=== PATIENT | female | born 1970 | race Caucasian/White ===

== ENCOUNTER → 2020-04-23 09:43 | Outpatient (BNVA) | payer OTHER, SELFPAY | PROVIDERS: PCP Internal Medicine; Visit Provider Orthopaedic Surgery | DX: M25.462 Effusion, left knee (principal) | CPT/HCPCS: 20610; J1100 ==

== ENCOUNTER 2020-11-30 08:02 | Outpatient (REF) | payer OTHER, SELFPAY ==
--- NOTE | ~2020-11-30 | MR_ITS ---
EXAMINATION: MR KNEE WITHOUT CONTRAST, LEFT CLINICAL INFORMATION: Left knee pain and swelling. Effusion. COMPARISON: Left knee radiographs dated 11/03/2019 TECHNIQUE: MRI of the knee without contrast was performed using routine sequences on a high-field scanner. FINDINGS: MENISCI: Medial Meniscus: Complex tearing of the meniscal body and posterior horn with inner margin blunting as well as tibial and femoral articular surface components. The meniscal body is medially extruded. Lateral Meniscus: Focal inner margin fraying of the meniscal body and posterior horn/root junction. LIGAMENTS: Cruciate: Intact. Collateral: Thickening of the medial collateral ligament, consistent with a remote sprain/partial tear. Intact fibular collateral ligament. EXTENSOR MECHANISM: Intact. ARTICULAR CARTILAGE/BONE: Patellofemoral Compartment: Medial patellar facet nondisplaced chondral fragment with associated delamination measuring 1.7 cm in ML dimension. Patellar median ridge and lateral patellar facet articular cartilage signal heterogeneity. Small marginal osteophytes. Medial Compartment: Weightbearing medial femoral condyle articular cartilage thinning with areas of dymb-[id number] loss. Signal heterogeneity. Tiny marginal osteophytes. Lateral Compartment: Mild weightbearing articular cartilage signal heterogeneity. Tiny marginal osteophytes. JOINT FLUID AND BURSAE: Moderate joint effusion and trace Wei's cyst. Probable posterior loose body measuring 0.5 cm. MR/MR knee LT wo con IMPRESSION: 1. Complex tearing of the medial meniscal body and posterior horn with inner margin blunting as well as irregular tearing extending along the femoral and tibial articular surfaces. Medial extrusion of the meniscal body. 2. Focal inner margin fraying of the lateral meniscal body and posterior horn/root junction. 3. Nondisplaced chondral fragment along the medial patellar facet measuring up to 1.7 cm. Overall mild patellofemoral osteoarthritis. Mild medial and lateral compartment osteoarthritis. Moderate joint effusion and trace Wei's cyst. Probable posterior loose body measuring 0.5 cm.
== END 2020-11-30 08:03 | disposition home or self-care (01) ==
LOC: HO.MRI 08:02
PROVIDERS: PCP Internal Medicine; Visit Provider Orthopaedic Surgery
DX: M25.462 Effusion, left knee (principal)
CPT/HCPCS: 73721

== ENCOUNTER → 2020-12-27 08:50 | Outpatient (BNVA) | payer OTHER, SELFPAY | PROVIDERS: Visit Provider Physician Assistant ==

== ENCOUNTER 2020-12-29 08:49 | Day surgery (SDC) | payer OTHER, SELFPAY ==
[2020-12-22 12:41] VITALS: BMI 26.5
--- NOTE | 2020-12-28 09:47 | HO.ANESPROP2 ---
Documented by User: Isabel Bingham NP 12/28/20 09:48 HPI - Anesthesia Eval Consult details Narrative: 50yo F for Left Knee Arthroscopy PMFSH Active Problems Active Problems: All Active Problems (Updated 12/27/20 @ 09:18 by Calin Barrios PA-C) Tear of meniscus of left knee (Acute) Effusion, left knee (Acute) Past Medical History Medical History Breast cancer Effusion, left knee Femur fracture Surgical History Surgical History History of prophylactic mastectomy of right breast Hx of bilateral oophorectomy Hx of total mastectomy of left breast Social History Social History Are you a primary critical care paramedic to a significant other at home: No Do you presently have visiting nurse or other home services: No Patient Tobacco Use Status: Never used Tobacco Use of substances other than those prescribed or required for medical reasons: No Have you been hit, kicked, punched, or otherwise hurt by someone within the past year? 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 Allergies Allergy/AdvReac Type Severity Reaction Status Date / Time No Known Allergies Allergy Verified 12/29/20 10:24 [No Known Allergies*] Home Medications Medication Instructions Recorded Confirmed Last Taken Type cholecalciferol (vitamin D3) 10 10 mcg PO DAILY 04/23/20 12/22/20 Unknown History mcg (400 unit) capsule duloxetine 30 mg capsule,delayed 1 cap PO BID 12/22/20 12/22/20 Unknown History release exemestane 25 mg tablet 1 tab PO DAILY 12/22/20 12/22/20 Unknown History Exam Exam Date and Time: December 28, 2020 0947 Height,Weight and Vital Signs: Height 5 ft 3 in Weight 68.039 kg Assessment and Plan Assessment Anesthesia Assessment: Chart Reviewed Documented by User: Fili Florence MD 12/29/20 11:34 [facility] Past Medical History Medical History Breast cancer Effusion, left knee Femur fracture Family History Family history of problems with anesthesia: No Surgical History Surgical History History of prophylactic mastectomy of right breast Hx of bilateral oophorectomy Hx of total mastectomy of left breast History of Problems with Anesthesia: No Social History Social History Are you a primary critical care paramedic to a significant other at home: No Do you presently have visiting nurse or other home services: No Patient Tobacco Use Status: Never used Tobacco Use of substances other than those prescribed or required for medical reasons: No Have you been hit, kicked, punched, or otherwise hurt by someone within the past year? 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 Allergies Allergy/AdvReac Type Severity Reaction Status Date / Time No Known Allergies Allergy Verified 12/29/20 10:24 [No Known Allergies*] Home Medications Medication Instructions Recorded Confirmed Last Taken Type cholecalciferol (vitamin D3) 10 10 mcg PO DAILY 04/23/20 12/22/20 Unknown History mcg (400 unit) capsule duloxetine 30 mg capsule,delayed 1 cap PO BID 12/22/20 12/22/20 Unknown History release exemestane 25 mg tablet 1 tab PO DAILY 12/22/20 12/22/20 Unknown History Exam Airway Mallampati Class: II TM Dist: >3cm Neck ROM: Full Loose/Missing/Broken Teeth: No Heart: [id number] Lungs: cta b/l Assessment and Plan Assessment Anesthesia Assessment: Anesthesia Plan Discussed Final Anesthetic Review Family History of Problems with Anesthesia: No History of Problems with Anesthesia: No NPO: Yes ASA Class: II Final Preanesthetic Review: No Changes in Pt Med Stat, Meds/Allgs Chart Reviewed, Consent Obtained/Reviewed and Anes Risks/Benef Reviewed Patient Risk: Intermediate Procedure Risk: Low Assessment/Block/Sedation in SS: Assess/Block/Sedation-SS Anesthetic Plan Anesthetic Plan: GA Disposition: Standard PACU
[2020-12-29] VITALS (7 sets, daily range): BP systolic 118–131; BP diastolic 61–79; PULSE 63–78; RESP 12–18; TEMP 36.7–37.1; O2SAT 98–100
[2020-12-29 09:56] LABS: UPreg QC Valid YES; Urine Pregnancy NEGATIVE (NEGATIVE)
[2020-12-29] MEDS: Lactated Ringers 1,000 ML 100 ML IVCONT (10:47)
--- NOTE | 2020-12-29 12:55 | PM.OP ---
Brief Operative Note Date of Service: 12/29/20 Pre-op diagnosis: left knee MMT Post-op diagnosis: other (Left knee MMT, loose bodies and chondromalacia with medial femoral arthritis) Procedure: left knee with partial medial meniscectomy, chondroplasty and removal of loose bodies Implants: none Surgeon: Chalino Saravia MD Anesthesia: GETA and local Was an Software Applications Designer used for this Procedure?: No Estimated blood loss (mL): 5 Tourniquet time (min): 30 IV fluids (mL): 800 Pathology: none sent Condition: stable Disposition: PACU
--- NOTE | 2020-12-29 12:59 | P.OP_ITS ---
Operative Note Operative Note Date of Service: 12/29/20 Narrative: Pre-op diagnosis: left knee MMT Post-op diagnosis: other (Left knee MMT, loose bodies and chondromalacia with medial femoral arthritis) Procedure: left knee with partial medial meniscectomy, chondroplasty and removal of loose bodies Implants: none Surgeon: Chalino Saravia MD Anesthesia: GETA and local Was an Inside Trucker used for this Procedure?: No Estimated blood loss (mL): 5 Tourniquet time (min): 30 IV fluids (mL): 800 Pathology: none sent Condition: stable Disposition: PACU Procedure in detail: Patient was brought to the operating room placed supine on the arthroscopic table and prepped and draped in standard sterile fashion. A time-out was called to identify proper site, proper procedure and proper surgeon. IV antibiotics per weight were administered. I began by exsanguinating the limb and insufflating tourniquet to 300 mm Hg. Then made a standard anterolateral stab incision. knee was insufflated with water and 30 degree arthroscope was placed. There was grade 2 fibrillations of the lateral patellar facet. There were small chondral fragments in the lateral gutter. I descended into the medial compartment where I made my medial portal under direct visualization. There was obvious of complex tear of the body and posterior horn of the medial meniscus. Root was intact and there was grade no changes in the plateau but scattered grade 3 changes throughout the medial femoral condyle laterally. I used a combination of biter shaver and cautery to remove unstable portions of the meniscus. Approximately 40% of the meniscal volume was removed. A chondroplasty was performed of the MFC. The ACL was intact but there were several chondral fragments, the largest of which measured 3 x 5 mm. These were removed with a grasper. The lateral compartment was entered and there was chondromalcia of the medial 50 % of the plateau but no meniscus tear and the LFC was normal. Once I was satisfied that all the loose bodies had been removed I removed all instrumentation and closed the portals with skin glue. 25 mL of 2% Marcaine with epinephrine was injected into the joint and the surrounding soft tissues. Patient was then placed in sterile dressing extubated brought recovery room stable condition. There were no known complications.
--- NOTE | 2020-12-29 13:54 | PC.NURSE ---
Dr. Saravia at bedside
[2020-12-29] MEDS: Ketorolac Tromethamine 15 MG/ML VIAL IVPUSH (14:10)
--- NOTE | 2020-12-29 14:39 | MHC.SHP ---
Pre-Procedural Eval Section A Date of Service: 12/29/20 The patient is an INPATIENT: No Changes since office visit: Yes Patient answered all questions; No Cold of Flu in the past 2 weeks, No New Medical Problems and No Changes in Medication The History & Physical has been completed within 30 days and I have reviewed it.: Yes Section B Chief Complaint: effusion left knee Allergies: Allergies Allergy/AdvReac Type Severity Reaction Status Date / Time No Known Allergies Allergy Verified 12/29/20 10:24 [No Known Allergies*] Plan I have reviewed the history and physical and performed a pertinent physical examination on my patient. No changes have occurred unless specified.
== END 2020-12-29 14:45 | disposition home or self-care (01) ==
LOC: HO.SSS 08:50
PROVIDERS: PCP Internal Medicine; Visit Provider Orthopaedic Surgery
PROC: (CPT 29870; principal; 2020-12-29 11:00)
DX: S83.232A Complex tear of medial meniscus, current injury, left knee, initial encounter (principal); X58.XXXA Exposure to other specified factors, initial encounter; Y93.9 Activity, unspecified; Y92.9 Unspecified place or not applicable; Y99.8 Other external cause status; M25.462 Effusion, left knee; M25.562 Pain in left knee; M23.42 Loose body in knee, left knee; M17.12 Unilateral primary osteoarthritis, left knee; M94.262 Chondromalacia, left knee; Z85.3 Personal history of malignant neoplasm of breast; Z79.899 Other long term (current) drug therapy
CPT/HCPCS: 29881; 81025; J0171; J0690; J1885; J2250; J2405; J3010

== ENCOUNTER → 2021-01-10 09:41 | Outpatient (BNVA) | payer OTHER, SELFPAY | PROVIDERS: PCP Internal Medicine; Visit Provider Physician Assistant ==

== ENCOUNTER → 2021-02-07 11:24 | Outpatient (BNVA) | payer OTHER, SELFPAY | PROVIDERS: PCP Internal Medicine; Visit Provider Orthopaedic Surgery ==

== ENCOUNTER → 2021-06-27 10:17 | Outpatient (BNVA) | payer OTHER, SELFPAY | PROVIDERS: PCP Internal Medicine; Referring Provider Internal Medicine; Visit Provider Surgery | DX: Z13.89 Encounter for screening for other disorder (principal) ==

== ENCOUNTER → 2022-02-27 11:39 | Outpatient (BNVA) | payer OTHER, SELFPAY | PROVIDERS: PCP Internal Medicine; Visit Provider Orthopaedic Surgery | DX: Z13.89 Encounter for screening for other disorder (principal) ==

== ENCOUNTER → 2022-03-20 13:50 | Outpatient (BNVA) | payer OTHER, SELFPAY | PROVIDERS: PCP Internal Medicine; Visit Provider Surgery | DX: Z13.89 Encounter for screening for other disorder (principal) ==

== ENCOUNTER → 2022-04-17 10:43 | Outpatient (BNVA) | payer OTHER, SELFPAY | PROVIDERS: PCP Internal Medicine; Visit Provider Orthopaedic Surgery | DX: M17.12 Unilateral primary osteoarthritis, left knee (principal) | CPT/HCPCS: 20610; J7323 ==

== ENCOUNTER → 2022-04-24 10:43 | Outpatient (BNVA) | payer OTHER, SELFPAY | PROVIDERS: PCP Internal Medicine; Visit Provider Orthopaedic Surgery | DX: M17.12 Unilateral primary osteoarthritis, left knee (principal) | CPT/HCPCS: 20610; J7323 ==

== ENCOUNTER 2022-05-01 10:27 | Outpatient (REF) | payer OTHER, SELFPAY ==
--- NOTE | ~2022-05-01 | XR_ITS ---
Exams: Pelvis with right hip 2 views HISTORY: Pain. COMPARISON: 12/21/2008. FINDINGS: Clips right pelvis again noted consistent previous surgery. Right hip ORIF changes appears similar. The proximal aspect of the femoral trinidad projects approximately 2.5 cm beyond the cortical margin of the greater trochanter. Heterotopic aspiration noted adjacent to the prosthesis. Distal margin not visualized but there is no evidence for any acute findings. No evidence of any definite fracture or loosening. XR/XR hip RT 1V IMPRESSION: No evidence for any acute fracture or loosening of the hardware.
--- NOTE | ~2022-05-01 | XR_ITS ---
Exams: Pelvis with right hip 2 views HISTORY: Pain. COMPARISON: 12/21/2008. FINDINGS: Clips right pelvis again noted consistent previous surgery. Right hip ORIF changes appears similar. The proximal aspect of the femoral trinidad projects approximately 2.5 cm beyond the cortical margin of the greater trochanter. Heterotopic aspiration noted adjacent to the prosthesis. Distal margin not visualized but there is no evidence for any acute findings. No evidence of any definite fracture or loosening. XR/XR pelvis 1-2V IMPRESSION: No evidence for any acute fracture or loosening of the hardware.
== END 2022-05-01 10:28 | disposition home or self-care (01) ==
LOC: HO.HOSX 10:27
PROVIDERS: PCP Internal Medicine; Visit Provider Orthopaedic Surgery
DX: M17.12 Unilateral primary osteoarthritis, left knee (principal); M25.551 Pain in right hip
CPT/HCPCS: 20610; 72170; 73501; J7323

== ENCOUNTER 2022-05-02 06:52 | Day surgery (SDC) | payer OTHER, SELFPAY ==
[2022-04-26 11:36] VITALS: BMI 28.8
[2022-05-02 08:00] VITALS: BP 82/60; PULSE 80; RESP 16; TEMP 36.3; O2SAT 100
[2022-05-02] MEDS: Lactated Ringers 1,000 ML 100 ML IVCONT (08:01)
--- NOTE | 2022-05-02 08:17 | HO.ANESPROP2 ---
[facility] Active Problems Active Problems: All Active Problems (Updated 05/01/22 @ 11:29 by Manuel Bianchi) Right hip pain (Acute) Tear of meniscus of left knee (Acute) Osteoarthritis of left knee (Acute) Hx of bilateral oophorectomy (Acute) History of adenomatous polyp of colon (Acute) Effusion, left knee (Acute) Past Medical History Medical History (Updated 05/01/22 @ 11:29 by Manuel Bianchi) Breast cancer Effusion, left knee Femur fracture History of adenomatous polyp of colon History of pulmonary embolism Family History Family history of problems with anesthesia: No Surgical History Surgical History (Updated 04/26/22 @ 11:33 by Yarelis Huntley RN) History of prophylactic mastectomy of right breast Hx of bilateral oophorectomy Hx of knee surgery Hx of total mastectomy of left breast History of Problems with Anesthesia: No Social History Social History Are you a primary child care leader to a significant other at home: No Do you presently have visiting nurse or other home services: No Patient Tobacco Use Status: Never used Tobacco Second Hand Smoke Exposure: No Use of substances other than those prescribed or required for medical reasons: No Are you DNR?: No Advance Directives: No Advance Directives Information Provided: Yes Advance Directives on File: No Current occupational status: employed 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[employer] 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 Allergies Allergy/AdvReac Type Severity Reaction Status Date / Time No Known Allergies Allergy Verified 04/24/22 10:49 [No Known Allergies*] Active Medications: Current Medications Lactated Ringer's (Lr) 1,000 mls @ 100 mls/hr IVCONT .Q10H ERI Last Admin: 05/02/22 08:01 Dose: 100 mls/hr Home Medications Medication Instructions Recorded Confirmed Last Taken Type cholecalciferol (vitamin D3) 10 10 mcg PO DAILY 04/23/20 04/26/22 Unknown History mcg (400 unit) capsule docusate sodium 100 mg capsule 100 mg PO DAILY 06/27/21 04/26/22 Unknown History (Colace) apixaban 5 mg tablet (Eliquis) 5 mg PO BID 03/20/22 04/26/22 04/29/22 History Exam Exam Date and Time: May 02, 2022 0817 Height,Weight and Vital Signs: Height 5 ft 3.5 in Weight 74.899 kg Last Vital Signs Temp 97.4 F 05/02/22 08:00 Pulse 80 05/02/22 08:00 Resp 16 05/02/22 08:00 BP 82/60 L 05/02/22 08:00 Pulse Ox 100 05/02/22 08:00 O2 Del Method 05/02/22 08:00 Airway Mallampati Class: II TM Dist: >3cm Neck ROM: Full Assessment and Plan Final Anesthetic Review Family History of Problems with Anesthesia: No History of Problems with Anesthesia: No NPO: Yes Final Preanesthetic Review: No Changes in Pt Med Stat, Meds/Allgs Chart Reviewed, Consent Obtained/Reviewed and Anes Risks/Benef Reviewed Patient Risk: Intermediate Procedure Risk: Low Anesthetic Plan Anesthetic Plan: MAC: Disposition: Standard PACU
--- NOTE | 2022-05-02 08:24 | MHC.SHP ---
Pre-Procedural Eval Section A Date of Service: 05/02/22 Section B Chief Complaint: Personal history of colonic polyps Details of Present Illness: has history of large colon polyp at level 40 cm in 2019 Relevant Social History: None Present Medications: see Short Stay Collaborative assessment Medical History: Significant History ( history of breast cancer, PE, on anticoagulation) History of Previous Operations: Relevant previous surgery/procedure and date(s) ( colonoscopy in 2019 with large polyp at level 40) Allergies: Allergies Allergy/AdvReac Type Severity Reaction Status Date / Time No Known Allergies Allergy Verified 04/24/22 10:49 [No Known Allergies*] Review of Systems Sugical H&P ROS: Negative: Constitution, Cardiovascular, Respiratory, Neurological, Psychiatric, Hem-Onc, Allergic/Immunologic, Gastrointestinal, Genitourinary, Musculoskeletal, Integumentary, Endocrine and Eyes/Ears/Nose/Throat Exam Surgical H&P Exam: Normal: HEENT, Normal: Heart, Normal: Lungs, Normal: Extremities, Normal: Abdomen, Normal: Skin and Normal: Neurological Plan Diagnosis/Plan: Unchanged I have reviewed the history and physical and performed a pertinent physical examination on my patient. No changes have occurred unless specified. Time Spent With Patient Time: Total time managing care of this patient today ____ minutes.
--- NOTE | 2022-05-02 09:24 | P.OP_ITS ---
Operative Note Operative Note Date of Service: 05/02/22 Narrative: Preop diagnosis: History of adenomatous polyp of the colon Postop diagnosis: Polyp, about 1 cm in size, on a stalk, at the distal right colon near the flexure Procedure: Colonoscopy with polypectomy using cold snare surgeon: Selvin Turner MD The patient is a 51-year-old female who had a previous colonoscopy in 2019 with note of a large polyp removed. This was a tubular adenoma and had recommended a short follow-up. She understood the technique of the procedure. She was aware of the risks, benefits, and alternatives. She was on Eliquis which was on hold for this procedure. The patient was brought to the operating room and placed in left lateral decubitus position under monitored anesthesia care. A surgical time-out was done. A full digital rectal exam was done and this did not reveal any signi ficant anal lesions. The tip of the Olympus colonoscope was gently introduced through the anal orifice advanced with insufflation all the way to the cecum. The cecum was intubated. The cecum was identified by visualization of the ileocecal valve as well as the appendiceal orifice. The cecal mucosa was unremarkable. The scope was gradually withdrawn with careful examination of the entire colonic mucosa being done with scope withdrawal. The patient had adequate bowel prep so it was unlikely that any lesion may have been missed. in the distal colon near the hepatic flexure was note of a polyp on a stalk. This was polyp on a stalke, about 1 cm in size. This was removed using cold snare. This was retrieved through the scope. There was note of mild oozing from the site I applied a Resolution clip at the polypectomy site for hemostasis as the patient is on anticoagulation. I proceeded to continue to withdraw the scope with careful examination of the entire colonic mucosa being done. The rectum was reached and there were no lesions seen. The anal canal was unremarkable. The scope was then withdrawn completely with desufflation. The patient tolerated the procedure well. There were no immediate complications. Depending on the path report, her next colonoscopy may be in the next 3-5 years.
[2022-05-02 09:31] VITALS: BP 109/72; PULSE 73; RESP 14; TEMP 36.1; O2SAT 97
[2022-05-02 09:46] VITALS: BP 112/78; PULSE 69; RESP 17; O2SAT 97
[2022-05-02 10:01] VITALS: BP 117/73; PULSE 73; RESP 18; TEMP 36.2; O2SAT 100
== END 2022-05-02 10:24 | disposition home or self-care (01) ==
PROVIDERS: PCP Internal Medicine; Visit Provider Surgery
PROC: 0DJD8ZZ Inspection of Lower Intestinal Tract, Via Natural or Artificial Opening Endoscopic (ICD-10-PCS; CPT 45378; principal; 2022-05-02 08:30)
DX: Z12.11 Encounter for screening for malignant neoplasm of colon (principal); Z86.010 Personal history of colon polyps; D12.3 Benign neoplasm of transverse colon; Z85.3 Personal history of malignant neoplasm of breast; Z90.13 Acquired absence of bilateral breasts and nipples; Z90.722 Acquired absence of ovaries, bilateral; Z86.711 Personal history of pulmonary embolism; Z79.01 Long term (current) use of anticoagulants; Z79.899 Other long term (current) drug therapy
CPT/HCPCS: 45385; 88305

== ENCOUNTER 2022-08-29 08:34 | Outpatient (REF) | payer OTHER, SELFPAY ==
[2022-08-29 15:27] LABS: Cholesterol 184 mg/dL; HDL Cholesterol 56 mg/dL; LDL Cholesterol Calculated 109 mg/dl; Triglycerides 98 mg/dL
[2022-08-29 15:43] LABS: Vitamin D 25-OH Total 33.8 ng/mL (>30)
[2022-08-30 05:12] LABS: HIV AB/AG Nonreactive (Nonreactive); HIV Num 1 0.05 S/CO (0.00-0.99)
== END 2022-08-29 08:35 | disposition home or self-care (01) ==
LOC: HO.CHCLDS 08:34
PROVIDERS: Visit Provider Registered Nurse
DX: Z00.00 Encounter for general adult medical examination without abnormal findings (principal); E66.3 Overweight; C50.912 Malignant neoplasm of unspecified site of left female breast
CPT/HCPCS: 36415; 80061; 82306; 87389

== ENCOUNTER 2022-11-17 13:24 | Outpatient (REF) | payer OTHER, SELFPAY | END 2022-11-17 13:25 | disposition home or self-care (01) | LOC: HO.HHCL 13:24 | PROVIDERS: Visit Provider Internal Medicine | DX: R42 Dizziness and giddiness (principal); Z13.29 Encounter for screening for other suspected endocrine disorder | CPT/HCPCS: 36415; 80053; 84443; 85025 ==

== ENCOUNTER 2023-01-01 08:42 | Outpatient (AMB) | payer OTHER, SELFPAY ==
--- NOTE | 2023-01-01 08:45 | MHC.OFFVIS ---
Intake Vital Signs 01/01/23 08:46 Height 5 ft 4 in Weight 146 lb BMI 25.1 Intake Visit Reasons: Newprob-Left hip pain Intake Note: Erna is a 52 year old female who presents today for a new problem visit with complaints of left hip pain. Patient reports that she was dealifting at the gym and on the last rep she felt a cramp in the glute. She followed exercise with stretching and she felt better. however a few days later she had increased pain that was radiating down the leg. Denies numbness and tingling. She has continued to stretch and exercise and she has improved but continues to have some mild pain in the posterior and and lateral aspect of the hip Allergies No Known Allergies [No Known Allergies*] Allergy (Verified 04/24/22 10:49) HPI Newprob-Left hip pain HPI Details Erna is a 52 year old woman who presents with complaints of left hip & leg pain. She complains of pain in her left glute and lateral aspect of her hip, radiating down her leg. She says that ~10 days ago she was exercising at the gym, and while deadlifting she felt a painful cramp in her glute. This improved somewhat with stretching but she continues to have pain with activity. This improved somewhat with stretching but continues to be present. She described the pain as a shark bit me in the leg . She denies any numbness or tingling. She says she is usually very active and recently completed a 15 [address] trail run last month without issue. She has left knee OA and a hx of a right IMN done when she was 18. She complains of pain in her left knee with activity. She has a hx of some relief from steroid injections and viscosupplementation, her last gel injection was on 05/01/22. [facility] Medical History (Updated 01/01/23 @ 09:09 by Manuel Bianchi) History of pulmonary embolism History of adenomatous polyp of colon Effusion, left knee Femur fracture Breast cancer Surgical History (Updated 04/26/22 @ 11:33 by Yarelis Huntley RN) Hx of knee surgery History of prophylactic mastectomy of right breast Hx of total mastectomy of left breast Hx of bilateral oophorectomy Social History Are you a primary daycare worker to a significant other at home: No Do you presently have visiting nurse or other home services: No Patient Tobacco Use Status: Never used Tobacco Second Hand Smoke Exposure: No Current occupational status: employed 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[employer] Review of Systems Const All systems reviewed & are unremarkable except as noted in HPI and below Physical Exam Vital Signs: BMI result Body Mass Index 25.1 Const General: no acute distress, alert and awake Orientation/consciousness: patient oriented x3 HEENT Head: Yes normocephalic and Yes atraumatic Eyes EOM: EOMs intact bilaterally Resp Effort & Inspection: normal respiratory effort and able to speak in complete sentences Cardio Jugular venous distension: no JVD Skin General skin exam: turgor normal Rashes: no rashes Neuro General: patient oriented x3 Extrem Other: Neg impingement left hip Mild ITB tightness Left knee medial compartment TTP Psych Appearance: grossly normal Affect: normal affect Attitude: cooperative Assessment & Plan Assessment & Plan (1) Strain of left piriformis muscle: Code(s): S76.312A - Strain of muscle, fascia and tendon of the posterior muscle group at thigh level, left thigh, initial encounter Plan: This is a 52 year old woman with left piriformis muscle strain. She has pain that occasionally radiates down the lateral aspect of her leg after an injury at the gym, which has improved somewhat with time. She denies any nerve pain or pain with ambulation, but feels limited in her ability to exercise and remain active. I discussed her diagnosis and treatment options. I recommend she continue activities as tolerated, NSAIDs, and icing. She can follow up prn. (2) Osteoarthritis of left knee: Code(s): M17.12 - Unilateral primary osteoarthritis, left knee Plan: Pain with activity S/P viscosupplementation, last injection 05/01/22. I discussed alternative treatment options, including icing and PRP injections. She would like to proceed with PRP injections. We will set this up and schedule her accordingly. Plan Scribed for Chalino Saravia MD by Manuel Bianchi, medical case manager, on 01/01/23 at 9:10 AM, EST. Coding Level of Care Code Est Pt Level 4 (32262) Diagnoses Strain of left piriformis muscle S76.312A Osteoarthritis of left knee M17.12
[2023-01-01 08:46] VITALS: BMI 25.1
== END 2023-01-01 09:28 | disposition home or self-care (01) ==
PROVIDERS: PCP Internal Medicine; Visit Provider Orthopaedic Surgery
DX: S76.312A Strain of muscle, fascia and tendon of the posterior muscle group at thigh level, left thigh, initial encounter (principal); M17.12 Unilateral primary osteoarthritis, left knee
CPT/HCPCS: 99213

== ENCOUNTER → 2023-01-01 08:42 | Outpatient (BNVA) | payer OTHER, SELFPAY | PROVIDERS: PCP Internal Medicine; Visit Provider Orthopaedic Surgery ==

== ENCOUNTER → 2023-01-17 14:37 | Outpatient (REF) | payer OTHER, SELFPAY ==
--- NOTE | 2023-01-17 14:41 | CA_ITS ---
Transthoracic Echocardiogram Patient (Last, First, Middle): Erna Prince, Gender: Female Date of : 1970 Age: 52 Procedure Date: 01/17/2023 Procedure Type: Transthoracic Echocardiogram Location: OP Height: 162.56 cm Weight: 65.77 kg BSA: 1.71 m2 Heart Rate: 77 bpm BP: 106 / 68 mmHg Estimator: SB Referring MD: Simba Estrada MD Symptoms: R42 DIZZINESS HX PE Study Quality: Adequate ECG Rhythm: Sinus Conclusions: - The left ventricular systolic function is normal. The visually estimated ejection fraction is between 65-70%. - No obvious valvular pathology seen on this study. Findings Left Ventricle Normal left ventricular cavity size. There is normal left ventricular wall thickness. The left ventricular systolic function is normal. The visually estimated ejection fraction is between 65-70%. There is no evidence of regional wall motion abnormalities. Diastolic function is normal for age. LV peak GLS 19.5%(normal). Right Ventricle Normal right ventricular cavity size and systolic function. Atria Both atria are normal in size. Aortic Valve There is a normal trileaflet aortic valve. There is no aortic valve stenosis. There is no aortic valve regurgitation. Mitral Valve The mitral valve appears normal. There is no mitral valve regurgitation. There is no mitral valve stenosis. Pulmonic Valve The pulmonic valve is likely normal. Tricuspid Valve There is trace tricuspid valve regurgitation. There is no evidence of pulmonary hypertension. Great Vessels The asc aorta is normal in size. Venous The inferior vena cava is normal in size and collapses less than 50% with inspiration. Pericardium/Pleural There is a trivial pericardial effusion. Prior Study Comparison No prior study available for comparison. Recommendations, Care & Conclusions No obvious valvular pathology seen on this study. Measurements 2D Linear Measurements IVSd: 0.86 0.6-0.9/0.6-1.0 cm LVIDd: 4.03 3.9-5.3/4.2-5.9 cm LVIDd Index: 2.36 2.4-3.2/2.2-3.1 cm/m2 LVIDs: 2.61 2.0-3.6 cm LVPWd: 0.73 0.7-1.1 cm LA Diam: 3.30 2.7-3.8/3.0-4.0 cm LAIDs Index: 1.93 1.5-2.3 cm/m2 LV Mass: 116.73 67-162/88-224 g LV Mass Index: 68.26 43-95/49-115 g/m2 LVOT Diam: 1.90 3.0+(-)1.3 cm 2D Systolic Function EF 4C: 72.80 >55% EF 2C: 70.90 >55% EF BiP: 71.50 >55% Mitral Valve MV Pk E: 0.63 MV PK A: 0.40 MV Decel Time: 194.00 E/A: 1.60 E'Lateral: 13.80 E'Medial: 9.25 E/E' Med: 6.80 E/E' Lat: 4.60 PHT: 57.00 MVA PHT: 3.86 Decel [place]: 3.24 Aortic Valve AoV Pk [place]: 1.22 AoV Pk Grad: 6.00 FRANCISCO J: 2.75 LVOT LVOT Pk [place]: 1.14 LVOT Mn [place]: 0.75 LVOT VTI: 0.23 LVOT Pk Grad: 5.00 LVOT Mn Grad: 3.00 LVOT Diam: 1.90 LVOT Area: 2.84 Diastolic Function MV Pk E: 0.63 MV Pk A: 0.40 E/A: 1.60 E'Medial: 9.25 E/E' Med: 6.80 E' Laterial: 13.80 E/E' Lat: 4.60 Right Ventricle TAPSE (mm): 21.50 TVS' [place]: 12.80 Tricuspid Valve TR Pk [place]: 1.85 TR Pk Grad: 14.00 RA Press: 8.00 RVSP: 22.00 Great Vessels Aorta Sinus of Valsalva: 3.00 2.0-3.5 cm Ao Asc: 3.10 2.1-3.4 cm Ao Desc: 1.70 Pulmonary Valve PV Pk [place]: 0.78 Peak PV Grad: 2.00 Updated in Other Vendor System with Status of Final Conrado Salas MD electronically signed on 01/18/2023 11:02:40 AM with status of Final
== END ==
LOC: HO.CARD 14:37
PROVIDERS: PCP Internal Medicine; Visit Provider Internal Medicine
DX: R42 Dizziness and giddiness (principal)
CPT/HCPCS: 93306; 93356

== ENCOUNTER → 2023-01-17 14:41 | Outpatient (BNV) | payer OTHER, SELFPAY | PROVIDERS: PCP Internal Medicine; Visit Provider Internal Medicine | DX: R42 Dizziness and giddiness (principal) | CPT/HCPCS: 93306 ==

== ENCOUNTER 2023-08-28 10:16 | Outpatient (REF) | payer OTHER, SELFPAY ==
[2023-08-28 14:30] LABS: Alanine Aminotransferase 22 U/L (0-31); Aspartate Amino Transferase 26 U/L (5-31); Bilirubin Direct 0.1 mg/dL (0.0-0.5); Bilirubin Total 0.4 mg/dL (0.0-1.0)
[2023-09-04 03:04] LABS: Estradiol Ultra Sensitive <2 pg/mL
== END 2023-08-28 10:17 | disposition home or self-care (01) ==
LOC: HO.CHCLDS 10:16
PROVIDERS: Visit Provider Advanced Practice Midwife
DX: N95.1 Menopausal and female climacteric states (principal); Z79.899 Other long term (current) drug therapy
CPT/HCPCS: 36415; 82247; 82248; 82670; 84450; 84460

== ENCOUNTER 2023-11-22 13:00 | Outpatient (REF) | payer OTHER, SELFPAY ==
[2023-11-22 14:45] LABS: Alanine Aminotransferase 19 U/L (0-31); Aspartate Amino Transferase 22 U/L (5-31); Bilirubin Direct 0.2 mg/dL (0.0-0.5); Bilirubin Total 0.7 mg/dL (0.0-1.0)
[2023-11-22 14:58] LABS: Vitamin D 25-OH Total 47.7 ng/mL (>30)
== END 2023-11-22 13:01 | disposition home or self-care (01) ==
LOC: HO.CHCLDS 13:00
PROVIDERS: Visit Provider Advanced Practice Midwife
DX: R79.89 Other specified abnormal findings of blood chemistry (principal); Z79.899 Other long term (current) drug therapy
CPT/HCPCS: 36415; 82247; 82248; 82306; 84450; 84460

== ENCOUNTER 2024-01-31 08:58 | Outpatient (REF) | payer OTHER, SELFPAY ==
[2024-01-31 14:49] LABS: Aspartate Amino Transferase 42 U/L (5-31); Bilirubin Direct 0.1 mg/dL (0.0-0.5); Bilirubin Total 0.4 mg/dL (0.0-1.0)
[2024-01-31 15:00] LABS: Alanine Aminotransferase 31 U/L (0-31)
== END 2024-01-31 08:59 | disposition home or self-care (01) ==
LOC: HO.CHCLDS 08:58
PROVIDERS: Visit Provider Advanced Practice Midwife
DX: Z79.899 Other long term (current) drug therapy (principal)
CPT/HCPCS: 36415; 82247; 82248; 84450; 84460

== ENCOUNTER 2024-02-12 10:41 | Outpatient (REF) | payer OTHER, SELFPAY ==
[2024-02-12 15:22] LABS: Aspartate Amino Transferase 37 U/L (5-31)
== END 2024-02-12 10:42 | disposition home or self-care (01) ==
LOC: HO.CHCLDS 10:41
PROVIDERS: Visit Provider Advanced Practice Midwife
DX: R74.01 Elevation of levels of liver transaminase levels (principal)
CPT/HCPCS: 36415; 84450

== ENCOUNTER 2024-03-14 07:20 | Outpatient (REF) | payer OTHER, SELFPAY ==
--- NOTE | ~2024-03-14 | XR_ITS ---
CLINICAL HISTORY: previusly described bilateral pleural efussions on Chest MRI 2 view chest x-ray Comparison: None Findings: Lungs are well inflated. Cardiac silhouette is within normal limits. There is asymmetric breast tissue with curvilinear density seen associated with the right breast raising the possibility of a intracapsular rupture of a right breast implant. No focal areas of consolidation are identified within the lungs. No pleural effusions. IMPRESSION: 1. No acute findings. 2. Presumed unilateral right breast implant with potential intracapsular implant rupture with areas of irregularity along the implant. Correlation with the patient's surgical history of breast cancer screening is suggested. This document has been electronically signed by: Chucho Hodge MD on 03/14/2024 17:28:16
--- NOTE | ~2024-03-14 | US_ITS ---
CLINICAL HISTORY: elevated AST US abdomen complete Comparison: None Findings: The visualized pancreas is normal. The aorta and inferior vena cava are normal caliber. The appearance of the liver suggests fatty infiltration without focal lesion. There is no intrahepatic bile duct dilatation. The common duct is 3.0 mm in diameter. There is a sludge ball or incidental 3 mm gallbladder polyp. The gallbladder is otherwise normal. There is no sonographic Villagomez sign. The main portal vein is antegrade. The right kidney is 11.7 cm in length. The left kidney is 11.4 cm in length. The spleen is normal. No ascites. IMPRESSION: 1. Hepatic steatosis. This document has been electronically signed by: Petros Terrell MD on 03/14/2024 08:38:47
--- OUTSIDE RECORDS SUMMARY | 2024-03-14 07:22 | XMS_ITS | Encounter Summary ---
Author Organization [employer] Address [address] [facility] [address] [place] [address] Care Team Providers Care Dock Loader Name Role Phone Simba Gibson MD Primary Care Provide r Reason for Visit * Reason Comments Pre-visit Planning Pre-visit planning - LVM Encounter Details Date Type Department Care Team ([facility] Contact Info) Description 02/28/2024 Patient Outreach [facility] [address] [place], [place] [phone] Simba Gibson MD [address] [place] [address] Pre-visit Planning (Pre-visit planning - LVM ) Social History Tobacco Use Types Packs/Day Years Used Date Smoking Tobacco: Never Passive Smoke Exposure: Never Smokeless Tobacco: Never Alcohol Use Standard Drinks/Week Comments Never 0 (1 standard drink = 0.6 oz pur e alcohol) Depression Answer Date Recorded Patient Health Questionnaire-9 Score 1 08/21/2022 Housing Stability Answer Date Recorded What is your housing situation today? I have son nuñez 11/27/[address] you li ve. Do you have problems with any of the following? None of the above 11/27/2022 Food Insecurity Answer Date Recorded Within the past 12 months, y ou worried that your food would run out before you got money to buy more: Never True 11/27/2022 Within the past 12 months,th e food you bought just didn't last and you didn't have enough money to get more: Never True Transportation Answer Date Recorded In the past 12 months, has l ack of transportation kept you from medical appts, meetings, work or from getting things needed for daily living? No 11/27/2022 Utilities Answer Date Recorded In the past 12 months, has t he electric, gas, oil or water company threatened to shut off services in your home? No 11/27/2022 Depression Answer Date Recorded Patient Health Questionnaire-2 Score 0 08/21/2022 Comments Unknown Sex and Gender Information Value Date Recorded Sex Assigned at Female 12/12/2021 10:21 AM EDT Legal Sex Female 10:21 AM EDT Gender Identity Female 12/12/2021 10:21 AM EDT Sexual Orientation Straight 12/12/2021 10 :21 AM EDT documented as of this encounter Progress Notes * Kaley Conn - 02/28/2024 1:03 PM EST ESTEFANY Gonzalez placed outbound call to patient to complete pre-visit planning. No answer at this time. Patient name and were not confirmed. CC left voicemail requesting return call. Direct contact information provided. documented in this encounter Plan of Treatment Not on file documented as of this encounter Visit Diagnoses Not on filedocumented in this encounter Additional Health Concerns Assessment Noted Time PHQ-9 Depression Total Score: 1 08/22/19 23 2:15 PM EDT documented as of this encounter Care Teams Dock Loader Relationship Specialty Start Date End Date Simba Gibson MD [address] [place] [id number] PCP - General Internal Medicine 02/20/18 documented as of this encounter
--- OUTSIDE RECORDS SUMMARY | 2024-03-14 07:22 | XMS_ITS | Encounter Summary ---
Author Organization [employer] Address [address] [facility] [address] [place] [address] Care Team Providers Care Radiology Assistant Name Role Phone Simba Gibson MD Primary Care Provide r Encounter Details Date Type Department Care Team ([facility] st Contact Info) Description 12/26/2022 Orders Only [facility] [address] [place], [place] [phone] Nico Ag MD [address] [place] [address] Muscle spasm (Primary Dx) Social History Tobacco Use Types Packs/Day Years [...] AM EDT documented as of this encounter Plan of Treatment Not on file documented as of this encounter Visit Diagnoses Diagnosis Muscle spasm- Primary Spasm of muscle documented in this encounter Additional Health Concerns Assessment Noted Time PHQ-9 Depression Total Score: 1 08/22/19 23 2:15 PM EDT documented as of this encounter Care Teams Radiology Assistant Relationship Specialty Start Date End Date Simba Gibson MD [address] [place] [address] PCP - General Internal Medicine 02/20/18 documented as of this encounter
--- OUTSIDE RECORDS SUMMARY | 2024-03-14 07:22 | XMS_ITS | Encounter Summary ---
Author Organization [employer] Address [address] [facility] [address] [facility] [address] [place] [address] Care Team Providers Care Steel Pourer Name Role Phone Simba Gibson MD Primary Care Provide r Encounter Details Date Type Department Care Team (Late st Contact Info) Description 06/08/2023 Orders Only [facility] [address] [place] [address] ProviderGerardo MD Social History Tobacco Use Types Packs/Day Years Used Date Smoking Tobacco: Never Passive Smoke Exposure: Never Smokeless Tobacco: Never Alcohol Use Standard Drinks/Week Comments Never 0 (1 standard drink = 0.6 oz pur e alcohol) Depression Answer Date Recorded Patient Health Questionnaire-9 Score 1 08/21/2022 Housing Stability Answer Date Recorded What is your housing situation today? I have sonroxanna nuñez 11/27/[address] you [...] on file documented as of this encounter Procedures Procedure Name Priority Date/Time Associated Diagnosis Comments HM COLONOSCOPY Routine 05/02/2022 9:06 AM EDT HM COLONOSCOPY Routine 06/07/2018 9:03 AM EDT documented in this encounter Results * Hm Colonoscopy (05/02/2022 9:06 AM EDT) Historical Provider HEALTH MAINTENANCE Final Result * Hm Colonoscopy (06/07/2018 9:03 AM EDT) us Historical Provider HEALTH MAINTENANCE Final Result documented in this encounter Visit Diagnoses Not on filedocumented in this encounter Additional Health Concerns Assessment Noted Time PHQ-9 Depression Total Score: 1 08/22/19 23 2:15 PM EDT documented as of this encounter Care Teams Steel Pourer Relationship Specialty Start Date End Date Simba Gibson MD [address] [place] [id number] PCP - General Internal Medicine 02/20/18 documented as of this encounter
--- OUTSIDE RECORDS SUMMARY | 2024-03-14 07:22 | XMS_ITS | Encounter Summary ---
Author Organization [employer] Address [address] [facility] [address] [address] [place] [address] Care Team Providers Care Music Department Chair Name Role Phone Simba Gibson MD Primary Care Provide r Encounter Details Date Type Department Care Team (Latest Contact Info) Description 03/11/2024 Travel Social History Tobacco Use Types Packs/Day Years Used Date Smoking Tobacco: Never Passive Smoke Exposure: Never Smokeless Tobacco: Never Alcohol Use Standard Drinks/Week Comments Never 0 (1 standard drink = 0.6 oz pur e alcohol) Depression Answer Date Recorded Patient Health Questionnaire-9 Score 2 03/11/2024 Patient Health Questionnaire-9 Score 2 03/11/2024 Last PHQ-9: Questionnaire Data Not on file 0 03/11/2024 Housing Stability Answer Date Recorded What is your housing situation today? I have son nuñez 03/11/[address] you li ve. Do you have problems with any of the following? None of the above 03/11/2024 Food Insecurity Answer Date Recorded Within the past 12 months, y ou worried that your food would run out before you got money to buy more: Never True 03/11/2024 Within the past 12 months,th e food you bought just didn't last and you didn't have enough money to get more: Never True Transportation Answer Date Recorded In the past 12 months, has l ack of transportation kept you from medical appts, meetings, work or from getting things needed for daily living? No 03/11/2024 Utilities Answer Date Recorded In the past 12 months, has t he electric, gas, oil or water company threatened to shut off services in your home? No 03/11/2024 Depression Answer Date Recorded Patient Health Questionnaire-2 Score 0 03/11/2024 Internet Access Answer Date Recorded Internet Access Q1 Yes 03/11/2024 Internet Access Q2 Not on file 03/11/2024 Comments Unknown Sex and Gender Information Value [...] Assessment Noted Time PHQ-9 Depression Total Score: 2 03/11/19 25 3:08 PM EST documented as of this encounter Care Teams Music Department Chair Relationship Specialty Start Date End Date Simba Gibson MD [address] [place] [address] PCP - General Internal Medicine 02/20/18 documented as of this encounter
--- OUTSIDE RECORDS SUMMARY | 2024-03-14 07:22 | XMS_ITS | Encounter Summary ---
Author Organization [employer] Address [address] [facility] 7[address] [place] [address] Care Team Providers Care Rotary Cutter Operator Name Role Phone Simba Gibson MD Primary Care Provide r Reason for Visit * Reason Onset Date Comments Chart Prep 02/29/2024 Encounter Details Date Type Department Care Team ([facility] st Contact Info) Description 02/29/2024 Telephone [facility] [address] [place], [place] [phone] Simba Gibson MD [address] [place], [place] [phone] Chart Prep Social History Tobacco Use Types Packs/Day Years [...] AM EDT documented as of this encounter Miscellaneous Notes * Telephone Encounter - Christy Wilson [place] - 02/29/2024 11:54 AM EST Chart Prep Labs: done Images: not applicable Vaccines due: Hep B Due and Shingles in pharmacy Due Referrals: Cardiology complete Screenings: PAP Overdue care gaps: Sbirt, SDOH, PHQ-9, and Oral Health Chart prep for upcoming appt with Dr.Esparza milan. LB documented in this encounter Plan of Treatment Not on file documented as of this encounter Visit Diagnoses Not on filedocumented in this encounter Additional Health Concerns Assessment Noted Time PHQ-9 Depression Total Score: 1 08/22/19 23 2:15 PM EDT documented as of this encounter Care Teams Rotary Cutter Operator Relationship Specialty Start Date End Date Simba Gibson MD [address] [place] [id number] PCP - General Internal Medicine 02/20/18 documented as of this encounter
--- OUTSIDE RECORDS SUMMARY | 2024-03-14 07:22 | XMS_ITS | Encounter Summary ---
Author Organization [employer] Address [address] [facility] [address] [place] [address] Care Team Providers Care Equalizing Saw Operator Name Role Phone Simba Gibson MD Primary Care Provide r Encounter Details Date Type Department Care Team (Latest Contact Info) Description 03/04/2024 Travel Social History Tobacco Use Types Packs/Day [...] documented as of this encounter Care Teams Equalizing Saw Operator Relationship Specialty Start Date End Date Simba Gibson MD [address] [place] [address] PCP - General Internal Medicine 02/20/18 documented as of this encounter
--- OUTSIDE RECORDS SUMMARY | 2024-03-14 07:22 | XMS_ITS | Clinical Summary ---
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 1 Active polyethylene glycol, PEG, 3350 (MiraLax) 17 GM/SCOOP powderIndications :Constipation, unspecified constipation type Take 17 g by mouth in the morning. 527 g 3 3 Active docusate sodium (Colace) 100 MG capsuleIndication s:Constipation, unspecified constipation type Take 1 capsule (100 mg) by mouth 2 times daily. 180 capsule 1 3 Active letrozole (Femara) 2.5 MG chemo tablet Take 2.5 mg by mouth Once per day. 4 Active Fezolinetant (Veozah) 45 MG tablet Take 1 tablet by mouth Once per day. 30 tablet 2 4 Active phentermine 15 MG capsule Take 1 capsule (15 mg) by mouth before breakfast. 30 capsule 4 Active topiramate (Topamax) 50 MG tablet Take 1 tablet (50 mg) by mouth Once per day. 30 tablet 3 4 Active ergocalciferol (Vitamin D2) 1.25 MG (50618 UT) capsuleIndication s:Low vitamin D level Take 1 capsule (1.25 mg) by mouth 1 (one) time per week. 6 capsule 3 03/11/19 25 Discontinu ed(Therapy completed) Active Problems Problem Noted Date Diagnosed Date Elevated AST (SGOT) 03/11/2024 Assessment & Plan (03/11/2024 3:55 PM EST): Mild AST elevation noted in January 2024 Obtain Hep B panel, Abd US ( small cyst liver seen on Chest MRI as well ) Bilateral pleural effusion 03/11/2024 Assessment & Plan (03/11/2024 3:53 PM EST): Incidental finding seen on Chest MRI done by Oncologist back in 08/2023. Pt denies any sob Plan: Obtain Chest x-ray. If pleural effusions persisted will proceed with further work up, if resolved no further interventions. Routine physical examination 03/11/2024 Assessment & Plan (03/11/2024 3:52 PM EST): Physical examination today within normal limits Low vitamin D level 11/17/2022 Assessment & Plan (03/11/2024 11:22 AM EST): Vitamin D level 11/22/2023 Normal Assessment & Plan (11/17/2022 1:38 PM EDT): Vitamin D 33 despite daily supplementation Will give a loading dose 50,000 international units once a week x 6 weeks Capsular contracture of breast implant Health care maintenance 08/21/2022 Overview (08/21/2022): Routine Health Maintenance: Immunizations: Up to date. Had 5 doses of COVID. Will bring COVID card to be scanned and update IZ record HIV: pending 08/21/22 Hep C: Non reactive 05/04/21 Hepatitis B: Discuss at next visit Pap Smear: 2020 NILM, HPV neg. Repeat 5 years 2025. Mammogram: Hx of recurrent Left infiltrating ductal carcinoma, grade 3, ER positive 7 out of 8, IA positive 7 out of 8 HER-2/kamron 3+ Diagnosed Mar 2019. Prior left breast cancer diagnosed July 2006. Care managed by [facility]. Last breast MRI Normal July 2022 BMD: mild osteopenia noted on DXA most likely r/t chemo therapy, up to date. Treating with vit D. Recommended calcium, not taking. Colonoscopy: Colonoscopy at age 47; 3 polyps biopsied Positive for tubular adenoma Repeat 3 years [facility] May-June 2022, found 1 polyp Repeat 3 years; 2025 Lung cancer: never smoker Eye: Last visit within 2 years. Wears contacts. No concerns Dental: 07/2022 Assessment & Plan (03/11/2024 11:20 AM EST): Pap Smear: 2020 NILM, HPV neg. Repeat 5 years 2025. Mammogram: Hx of recurrent Left infiltrating ductal carcinoma, grade 3, ER positive 7 out of 8, IA positive 7 out of 8 HER-2/kamron 3+ Diagnosed Mar 2019. Prior left breast cancer diagnosed July 2006. Care managed by [facility]. Last breast MRI Normal July 2022 BMD: mild osteopenia noted on DXA most likely r/t chemo therapy, up to date. Treating with vit D. Recommended calcium, not taking. Colonoscopy: Colonoscopy at age 47; 3 polyps biopsied Positive for tubular adenoma Repeat 3 years [facility] May-June 2022, found 1 polyp Repeat 3 years; 2025 Follow-up examination after gynecological surger y 08/21/2022 Overview (08/21/2022): S/p BSO on 12/05/[address] 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 Prior left breast cancer T1c N0, lower inner quadrant, ER positive, IA positive diagnosed July 2006. Current regimen Letrozole 2.5 mg daily, started 09/2021 Zoledronic acid 4 doses, 1 dose every 6 months. Doses: 01/12/20, 08/11/20, 02/09/21, 07/21/21 s/p left mastectomy, sentinel node with reconstruction/silicone implant Assessment & Plan (08/21/2022 7:10 PM EDT): Care managed by [facility]. Last breast MRI Normal July 2022 F/u with specialist History of pulmonary embolism 08/21/2022 Overview (08/21/2022): Completed Eliquis therapy 08/11/22 Assessment & Plan (08/21/2022 7:12 PM EDT): F/u PRN Recurrent infiltrating ductal carcinoma of left breast 08/21/2022 Overview (03/11/2024): Hx of recurrent Left infiltrating ductal carcinoma, grade 3, ER positive 7 out of 8, IA positive 7 out of 8 HER-2/kamron 3+ Diagnosed Mar 2019. Prior left breast cancer T1c N0, lower inner quadrant, ER positive, IA positive diagnosed July 2006. Current regimen Letrozole 2.5 mg daily, started 09/2021 Zoledronic acid 4 doses, 1 dose every 6 months. Doses: 01/12/20, 08/11/20, 02/09/21, 07/21/21 Examestane between August 2020 and 2021 with a brief trial of Tamoxifen Prophylactic right breast mastectomy with immediate reconstruction on 09/06/2020 Anastrazole between Sep 2019 and July 2020 Bilateral Salpingo-oophorectomy 12/05/2019 TDM1 between 09/23/2019 and 07/23/2020 Leuprolide x 14 August 2019 to Sep 2019 with goserelin October 2019 Excision of left chest wall lesion with excision of breast implant and capsulectomy on 08/11/2019 Paclitaxel, trastuzumab and pertuzumab 04/29/2019 to 07/15/2019 Tamoxifen between 2006 to February 2017 Docetaxel and cyclophosphamide x 4 cycles with trastuzumab for 1 year between [id number] Left niple sparing mastectomy with reconstruction and silicone implant in 2006 Assessment & Plan (03/11/2024 12:06 PM EST): Care managed by [facility]. Last breast MRI Normal July 2022 Pt did not qualify for a breast MRI so a Chest MRI was performed 08/29/2023 that showed: IMPRESSION: 1. No MRI evidence of malignancy in the chest wall. 2. Intact RIGHT chest wall silicone implant. 3. Expected appearance of PAWAN flap reconstruction on the LEFT. INCIDENTAL FINDINGS: Small layering bilateral pleural effusions again noted. 0.4 cm area of T2 hyperintensity without enhancement anteriorly in the LEFT hepatic lobe consistent with a small cyst. Last seen by Her new oncologist Argenis Quintero 02/07/2024. Her previous oncologist recently retired She recommended to: continue adjuvant endocrine therapy with a plan to continue this until at least September 2024 and potentially longer if tolerating And follow up in 6 months Plan: Obtain chest x-ray to evaluate bilateral pleural effusions and Abdominal US to evaluate cyst F/u with specialist, last seen 02/07/2024 Assessment & Plan (08/21/2022 7:10 PM EDT): Care managed by [facility]. Last breast MRI Normal July 2022 F/u with specialist Tubular adenoma of colon 08/21/2022 Overview (08/21/2022): Colonoscopy at age 47; 3 polyps biopsied Positive for tubular adenoma Repeat 3 years [facility] May-June 2022, found 1 polyp Repeat 3 years; 2025 Assessment & Plan (03/11/2024 3:54 PM EST): Not due for a repeat colonoscopy until 04/2025 Constipation 08/21/2022 Overview (08/21/2022): treating with Colace 100 mg BID, Miralax 17 g at night, prunes, and magnesium sulfate OTC. Drinks water and exercises 5 days a week. Assessment & Plan (08/21/2022 2:58 PM EDT): Will refill Miralax and Colace Continue OTC prunes and mg Sulfate F/u PRN Resolved Problems Problem Noted Date Diagnosed Date Resolved Date Dizziness 11/17/2022 03/11/2024 Assessment & Plan (11/17/2022 1:21 PM EDT): Patient here for a sick visit with c/o new onset of dizziness, describes of a sensation of feeling like she might faint, associated with a few bright lights that last for a few seconds following intense exercise. This has been going on for a couple of months, Pt is very active and has been doing intense exercise for at least 6 months. She has also managed to loose a substantial amount of weight as a result. She denies any other associated symptoms, no vertigo, no blurred vision, no chest pain, no palpitations, no diaphoresis, no nausea or vomiting. This never occurs at rest or with minimal exertion. Physical exam is within normal limits, EKG is within normal limits, No orthostatism. Etiology ? Neuro Cardiogenic ? Medication side effect ? ( Pt on Femara ), Anemia ? Plan: Obtain CBC, CMP, TSH , ECHO Will follow up in 1 month after testing. Discussed with patient that if she develops further symptoms to let me know. 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 (CMS/HCC); Low vitamin D level; Elevated AST (SGOT); Bilateral pleural effusion; Tubular adenoma of colon; Health care maintenance 03/11/2024 Travel 03/04/2024 Travel 02/29/[address] [phone] Simba Gibson MD Chart Prep 02/28/2024 Patient Outreach [address] [phone] Simba Gibson MD Pre-visit Planning (Pre-visit planning - LVM ) 02/01/[address] [address] Sindy Manriquez CNM 01/31/2024 Orders Only [facility] [address] [place], [place] [phone] Hattie Frey MD 01/29/2024 Refill [facility] [address] [facility], [place] [phone] Smiba Gibson MD 01/04/2024 Orders Only [facility] [address] [facility], [place] [phone] Hattie Frey MD 12/17/2023 Orders Only [facility] [address] [facility], [place] [phone] Name, MD Denzel from Last 3 Months Immunizations Name Administration Dates Next Due Influenza Injectable Quadriv alant Preservative Free IIV4 MDCK 11/09/2022,11/03/2021,11/04/2020,10/27 Influenza injectable quadriv alent IIV4 with preservative 10/23/2018,10/24/2017,10/21/2014 Influenza, IIV3, injectable 12/17/2006 Influenza, seasonal, injecta ble, preservative free 11/02/2023 Pfizer Covid-19 Vaccine 12+ 11/13/2023 Pneumococcal Conjugate PCV 13 09/02/2019 Pneumococcal Polysaccharide PPSV23 11/24/2019 Tdap 05/31/2021,06/08/2011 Social History Tobacco Use Types Packs/Day Years Used Date Smoking Tobacco: Never Passive Smoke Exposure: Never Smokeless Tobacco: Never Tobacco Cessation:Counseling Given: Not Answered Alcohol Use Standard Drinks/Week Comments Never 0 (1 standard drink = 0.6 oz pur e alcohol) Depression Answer Date Recorded Patient Health Questionnaire-9 Score 2 03/11/2024 Patient Health Questionnaire-9 Score 2 03/11/2024 Last PHQ-9: Questionnaire Data Not on file 0 03/11/2024 Housing Stability Answer Date Recorded What is your housing situation today? I have son savannah 03/11/[address] you li [...] Orientation Straight 12/12/2021 10 :21 AM EDT Last Filed Vital Signs Vital Sign Reading Time Taken Comments Blood Pressure 115/77 03/11/2024 2:57 PM EST Pulse 68 03/11/2024 2:57 PM EST Temperature 36.3 ??C (97.3 ??F) 03/11/2024 2:57 PM ES T Respiratory Rate 20 03/11/2024 2:57 PM EST Oxygen Saturation 99% 03/11/2024 2:57 PM EST Inhaled Oxygen Concentration - - Weight 66.7 kg (147 lb) 03/11/2024 2:57 PM EST Height 160 cm (5' 3 ) 03/11/2024 2:57 PM EST Body Mass Index 26.04 03/11/2024 2:57 PM EST Plan of Treatment Health Maintenance Due Date Last Done Comments CT Colonography 1972 FIT DNA/Cologuard 1972 FIT 1972 FOBT 1972 Sigmoidoscopy 1972 Family Planning (PISQ) 10/10/1987 Hepatitis B Vaccines (1 of 3 - 19+ 3-dose series) 10/10/1991 Pap Smear 1993 Cervical Cancer Screening 2002 HPV/Cotest 2002 Zoster Vaccines (1 of 2) 2022 Pneumococcal Vaccine: 50+ Years (3 of 3 - PCV20 or PCV21) 11/23/2024 11/24/2019, 09/02/2019 Alcohol/Substance Use Screening 03/11/2025 03/11/2024 Depression Screening 03/11/2025 03/11/2024, 03/11/19 SDOH Screening 03/11/2025 03/11/2024 Tobacco Screening 03/11/2025 03/11/2024 Colonoscopy 05/02/2025 05/02/2022, 06/07/2018 Colorectal Cancer Screening 05/02/2025 DTaP/Tdap/Td Vaccines (3 - Td or Tdap) 06/01/2031 05/31/2021, 06/08/2011 RSV Patients and Patients Aged 60 years or older (1 - 1-dose 75+ series) 10/10/2047 Hepatitis C Screening Completed 05/04/2021 HIV Screening Completed 08/29/2022 Influenza Vaccine Completed 11/02/2023, , 11/03/2021, Additional history exists COVID-19 Vaccine Completed 11/13/2023, , 09/27/2020, Additional history exists HIB Vaccines Aged Out No longer eligi ble based on patient's age to complete this topic HPV Vaccines Aged Out No longer eligi ble based on patient's age to complete this topic Hepatitis A Vaccines Aged Out No long er eligible based on patient's age to complete this topic IPV Vaccines Aged Out No longer eligi ble based on patient's age to complete this topic Meningococcal Vaccine Aged Out No adonis rickey eligible based on patient's age to complete this topic RSV under 20 months Aged Out No longe r eligible based on patient's age to complete this topic Rotavirus Vaccines Aged Out No longer eligible based on patient's age to complete this topic Procedures Procedure Name Priority Date/Time Associated Diagnosis Comments AST Routine 02/12/2024 10:43 AM EST Elevated AST (SGOT) BILIRUBIN, TOTAL Routine 01/31/2024 9:00 AM EST retirement use of drug BILIRUBIN, DIRECT Routine 01/31/2024 9:0 0 AM EST retirement use of drug AST Routine 01/31/2024 9:00 AM EST retirement use of drug ALT Routine 01/31/2024 9:00 AM EST retirement use of drug HIV ANTIBODY/ANTIGEN ([place] DPH) Routine 08/29/2022 8:38 AM EDT HM COLONOSCOPY Routine 05/02/2022 9:06 AM EDT ZZZ HISTORICAL HEPATITIS C AB W/REFL TO HCV RNA, QN, PCR Routine 05/04/2021 8:45 AM EDT from Last 3 Months or Most Recently Relevant to Health Maintenance Results * (ABNORMAL) AST (02/12/2024 10:43 AM EST) Only the most recent of2 resultswithin the time period is included. Aspartate Amino Transferase 37(H) 5 - 31 U/L [facility] Blood Venous blood specimen / Unknown 02/12/2024 10:43 AM EST 02/12/2024 2:57 PM EST [facility] LAB BLOOD ORDERABLES Alisson l Result Performing Organization Address [facility]/ZIP Co de Phone Number [facility] [address] [place] [phone] * ALT (01/31/2024 9:00 AM EST) Alanine Aminotransferase 31 0 - 31 U/L [facility] Blood Venous blood specimen / Unknown 01/31/2024 9:00 AM EST 01/31/2024 2:28 PM EST [facility] LAB BLOOD ORDERABLES Alisson l Result Performing Organization Address [facility]/ZIP Co de Phone Number [facility] [address] [place] [phone] * Bilirubin, Direct (01/31/2024 9:00 AM EST) Bilirubin, Direct 0.1 0.0 - 0.5 mg/dL [facility] Blood Venous blood specimen / Unknown 01/31/2024 9:00 AM EST 01/31/2024 2:28 PM EST [facility] Alisson l Result Performing Organization Address [facility]/ZIP Co de Phone Number [facility] [address] [place] [phone] * Bilirubin, Total (01/31/2024 9:00 AM EST) Bilirubin, Total 0.4 0.0 - 1.0 mg/dL [facility] Blood Venous blood specimen / Unknown 01/31/2024 9:00 AM EST 01/31/2024 2:28 PM EST [facility] LAB BLOOD ORDERABLES Alisson l Result Performing Organization Address [facility] Co de Phone Number [facility] [address] [place] [phone] * HIV Ab/Ag ([place] MIRYAM) (08/29/2022 8:38 AM EDT) HIV AB/AG Nonreactive Nonreactive [facility] Comment:HIV-1 p24 Ag and/or HIV-1/HIV-2 Ab not detected.A test result that is nonreactive does not exclude thepossibility of exposure to or infection with HIV-1 and/orHIV-2. Nonreactive results in this assay for individualswith prior exposure to HIV-1 and/or HIV-2 may be due toantigen and antibody levels that are below the limit ofdetection of this assay.The [employer] HIV Ag/Ab Combo assay result andsupplemental assay results should be interpreted inconjunction with the patient's clinical presentation,history and other laboratory results. If the results areinconsistent with clinical evidence, additional testing issuggested to confirm the result. 08/29/2022 8:38 AM EDT 08/29/2022 2:29 PM EDT Brenda Laura Ortizon [facility] LAB BLOOD ORDERABLES Final Result Performing Organization Address City/[facility]/ZIP Co de Phone Number [facility] [address] [place] [phone] * Hm Colonoscopy (05/02/2022 9:06 AM EDT) Historical Provider MD HEALTH MAINTENANCE Final Result * HEPATITIS C AB W/REFL TO HCV RNA, QN, PCR (05/04/2021 8:45 AM EDT) HEPATITIS C ANTIBODY NON-REACT DONOVAN NON-REACT DONOVAN [facility] INDEX 0.03 <1.00 [facility] Comment: ?? HCV antibody was non-reactive. There is no laboratory ?? evidence of HCV infection. ?? In most cases, no further action is required. However, if recent HCV exposure is suspected, a test for HCV RNA (test code 59298) is suggested. ?? For additional information please refer to http://education.[employer].FastCustomer/faq/OPO30b1 (This link is being provided for informational/ educational purposes only.) ?? 05/04/2021 8:45 AM EDT Simba Barragan MD HISTORICAL/NON ORDERA BLE LABS Final Result Performing Organization Address City/[facility]/ZIP Co de Phone Number [facility] [address] from Last 3 Months or Most Recently Relevant to Health Maintenance Insurance [facility] , [address] [place] [address] Care Teams Pilot Boat Deckhand Relationship Specialty Start Date End Date Simba Gibson MD [address] [place] [phone] PCP - General Internal Medicine 02/20/18
--- OUTSIDE RECORDS SUMMARY | 2024-03-14 07:23 | XMS_ITS | Continuity of Care Document ---
Author Organization [facility] Address [address] [place] [phone]- Care Team Providers Care Ceramics Instructor Name Role Phone Sean GONZALEZ, Simba Wang Primary Care Physi [facility] Encounter [facility] [id number] Date(s): 02/01/24 - 03/02/24 [facility] [address] [place] [id number] Attending Physician: Kristian Valdez Admitting Physician: AdmtrKristian Referring Physician: Admtr Ar8 Encounter Type: Triage Allergies, Adverse Reactions, Alerts Substance Criticality Severity Reaction Reaction Severity Status morphine prolonged effe ct- stay sleeping long time N/V Active Immunizations Given and Recorded Vaccine Date Status Refusal Reason SARS-CoV-2 (COVID-19) mRNA-1273 vaccine 06/06/21 R ecorded SARS-CoV-2 (COVID-19) mRNA-1273 vaccine 09/27/20 R ecorded SARS-CoV-2 (COVID-19) mRNA-1273 vaccine 03/08/20 R ecorded SARS-CoV-2 (COVID-19) mRNA-1273 vaccine 02/09/20 R ecorded pneumococcal 23-valent vaccine 11/24/19 Given pneumococcal 13-valent vaccine 1 09/02/19 Given influenza virus vaccine, inactivated 12/17/06 Give n 1Early/Late Reason: Wean to Standard Admin Times Medications apixaban 5 mg oral tablet 1 tablet = 5 mg, By Mouth, 2 times a day, Start AFTER 10mg twice daily apixaban 7 day course, # 60 tablet, 0 Refills, Maintenance, 09/12/21 9:00:00 AM EDT, Tablet, [facility], Partial fill upon patient request if the prescription is for a schedule II opioid drug., 162, cm, 09/04/21 22:28:00 EDT, Height, 75.7, kg, 09/04/21 22:28:00 EDT, Dry Weight Start Date: 09/12/21 Status: Ordered Quantity: 60.0 Unit: tablet Repeat number: 1 docusate sodium 100 mg oral capsule 100 mg, 1, capsule, By Mouth, 2 times a day, PRN, # 30 capsule, Refills 0, Tot. Refills 0, Maintenance, as needed for constipation, 08/15/21 10:45:00 AM EDT, Route to Pharmacy Electronically, [facility]/pharmacy #[id number], Partial fill upon patient request if the prescription is for a schedule II opioid drug., 162, cm, 08/14/21 2:27:00 EDT, Height, 76.6, kg, 08/11/21 7:00:00 EDT, Dry Weight Start Date: 08/15/21 Status: Ordered Quantity: 30.0 Unit: capsule Repeat number: 1 letrozole 2.5 mg oral tablet 1 tablet = 2.5 mg, By Mouth, Daily, # 90 tablet, 3 Refills, Maintenance, 07/31/23 5:34:00 PM EDT, [id number], Partial fill upon patient request if the prescription is for a schedule II opioid drug., 162, cm, 07/31/23 14:14:00 EDT, Height, 69.1, kg, 07/31/23 14:14:00 EDT, Dry Weight Start Date: 07/31/23 Status: Ordered Quantity: 90.0 Unit: tablet Repeat number: 4 Linzess 72 mcg oral capsule TAKE 1 CAPSULE BY MOUTH EVERY DAY ON EMPTY STOMACH AT LEAST 30 MINUTES BEFORE FIRST MEAL OF THE DAY Start Date: 09/05/21 Status: Ordered Repeat number: 1 oxybutynin 5 mg/24 hours oral tablet, extended release 1 tablet = 5 mg, By Mouth, Daily at bedtime, do not crush or chew, # 30 tablet, 1 Refills, Maintenance, 08/28/23 4:13:00 PM EDT, ER Tablet, [id number], Partial fill upon patient request if theprescription is for a schedule II opioid drug., 162, cm, 07/31/23 14:14:00 EDT, Height, 69.1, kg, 07/31/23 14:14:00 EDT, Dry Weight Start Date: 08/28/23 Status: Ordered Quantity: 30.0 Unit: tablet Repeat number: 2 Vitamin D2 2000 intl units oral capsule 1 capsule = 50 mcg, By Mouth, Daily, with food, # 90 capsule, 3 Refills, Maintenance, 07/31/23 5:35:00 PM EDT, Capsule, [id number], Partial fill upon patient request if the prescription is fora schedule II opioid drug., 162, cm, 07/31/23 14:14:00 EDT, Height, 69.1, kg, 07/31/23 14:14:00 EDT, Dry Weight Start Date: 07/31/23 Status: Ordered Quantity: 90.0 Unit: capsule Repeat number: 4 Vitamin D3 2000 intl units oral capsule 1 capsule = 2,000 International_Units, By Mouth, Daily at bedtime, 0 Refills, Maintenance, 08/06/19 11:22:00 AM EDT Start Date: 08/06/19 Status: Ordered Repeat number: 1 Problem List Condition Confirmation Course Effective Dates Status H ealth Status Informant Breast cancer Confirmed Active Capsular contracture of breast implant Confirmed Active Recurrent cancer of left breast Confirmed Active Encounter for Papanicolaou smear for cervical cancer screening Confirmed Active Personal History of Malignant Neoplasm of Breast, Left, T1c No ER/MS positive, NNS5vep positive, 2006 02 Confirmed 08/31/06 Active PE (pulmonary thromboembolism) Confirmed Active Follow-up examination after gynecological surgery Confirmed Active 1s/p left mastectomy, sentinel node with reconstruction/silicone implant Social History Social History Type Response Smoking Status Never smoker entered on: 09/18/13 Sex Sex Representation Female (finding) Implantable Device List Procedure Provider Procedure Date Device Type Site Removal [id number] Emelyn Hall RN 09/06/20 Unknown Breast Right Device Identifier Serial Number Lot or Batch Number Manufacturing Date Expiration Date Distinct Identification Code MRI Safety Implantable Status Assigning Authority Unknown [id number] Unknown 12/12/24 Unknown Unknown Active Unknown Patient Care team information Care Team Personnel Name: Aliya Santizo Position: [facility] Onco RN Member Role: Primary Care Nurse Name: Marlys Sotelo MA Position: [facility] Outreach Member Role: Lifetime Consulting Physician Name: Brenna Montanez Position: S RN Member Role: Primary Care Nurse Name: Sean GONZALEZ, Simba Wang Position: [facility] Outreach Member Role: PCP Address: [address] [place] [address] Telecom: Name: Ghislaine Gann RN Position: [facility] RN Member Role: Primary Care Nurse Name: Hermila Antoine RN Position: [facility] Onco RN Member Role: Primary Care Nurse Name: Jenelle Chambers RN Position: [facility] Onco RN Member Role: Primary Care Nurse Name: Diane Greco RN Position: [facility] RN Member Role: Primary Care Nurse Name: Delia South RN Position: [facility] AMB Nurse Member Role: Primary Care Nurse Care Team Related Persons Name: WILFREDO WILKINSON Name: GLORY GIVENS Insurance Providers Guarantor name: [facility] Plan Information #: 1 Payer: [facility] HMO Member Number: NA Policy Number: NA Group Number: NA
--- OUTSIDE RECORDS SUMMARY | 2024-03-14 07:23 | XMS_ITS | Continuity of Care Document ---
Author Organization [facility] for [facility] Address [address] [place] [phone]- Care Team Providers Care Graphics Coordinator Name Role Phone Sean GONZALEZ, Simba Wang Primary Care Physi [facility] Encounter [facility] Date(s): 02/07/24 - 03/08/24 [facility] [address] [place] [address] Encounter Type: Triage Allergies, Adverse Reactions, Alerts [...] Refills, Maintenance, 09/12/21 9:00:00 AM EDT, Tablet, [facility], Partial fill upon patient request if [...] 10:45:00 AM EDT, Route to Pharmacy Electronically, [facility]/pharmacy #[id number], Partial fill upon patient request [...] 3 Refills, Maintenance, 07/31/23 5:34:00 PM EDT, [facility]/pharmacy #[id number], Partial fill upon patient request [...] Malignant Neoplasm of Breast, Left, T1c No ER/[place] positive, [id number] positive, 2006 02 Confirmed 08/31/06 Active PE (pulmonary thromboembolism) Confirmed Active Follow-up examination after gynecological surgery Confirmed Active 1s/p left mastectomy, sentinel node with reconstruction/silicone implant Social History Social History Type Response Smoking Status Never smoker entered on: 09/18/13 Sex Sex Representation Female (finding) Implantable Device List Procedure Provider Procedure Date Device Type Site Removal Pktn-M-Mcmxpjuu Emelyn Hall RN 09/06/20 Unknown Breast Right Device Identifier Serial Number Lot or Batch Number Manufacturing Date Expiration Date Distinct Identification Code MRI Safety Implantable Status Assigning Authority Unknown [id number] Unknown 12/12/24 Unknown Unknown Active Unknown Patient Care team information Care Team Personnel Name: Aliya Santizo Position: [facility] Onco RN Member Role: Primary Care Nurse Name: Marlys Sotelo MA Position: [facility] Outreach Member Role: Lifetime Consulting Physician Name: Brenna Montanez Position: S RN Member Role: Primary Care Nurse Name: Sean GONZALEZ, Simba Wang Position: [facility] Outreach Member Role: PCP Address: [address] [place] [address] Telecom: Name: Ghislaine Gann RN Position: [facility] RN Member Role: Primary Care Nurse Name: Hermila Antoine RN Position: [facility] Onco RN Member Role: Primary Care Nurse Name: Jenelle Chambers RN Position: [facility] Onco RN Member Role: Primary Care Nurse Name: Diane Greco RN Position: [facility] RN Member Role: Primary Care Nurse Name: Delia South RN Position: [facility] AMB Nurse Member Role: Primary Care Nurse Care Team Related Persons Name: WILFREDO WILKINSON Name: GLORY GIVENS Insurance Providers Guarantor [facility]: [facility] Information #: 1 Payer: [facility] HMO Member Number: NA Policy Number: NA Group Number: NA
--- OUTSIDE RECORDS SUMMARY | 2024-03-14 07:23 | XMS_ITS | Encounter Summary ---
Author Organization [employer] Address [address] [facility] [address] [place] [address] Care Team Providers Care Machine Specialist Name Role Phone Simba Gibson MD Primary Care Provide r Reason for Referral * Consultation (Routine) - Authorized Specialty Diagnoses / Procedures Referred By Contac t Referred To Contact Midwifery Diagnoses Health care maintenance Simba Gibson MD [address] [place] [address] Phone: tel: fax: Sindy Manriquez CNM [address] [place] [address] Phone: tel: fax: Referral ID Status Reason Start Date Expiration Date Visits Requested Visits Authorized [id number] Authorized Consult and Treat 03/11/2024 03/11/2025 1 1 * Imaging (Routine) - Authorized Specialty Diagnoses / Procedures Referred By Contac t Referred To Contact Radiology Diagnoses Elevated AST (SGOT) Procedures US Abdomen Complete Simba Gibson MD [address] [place] [address] Phone: tel: fax: [facility] [address] [place] [address] Phone: tel: fax: Referral ID Status Reason Start Date Expiration Date V isits Requested Visits Authorized [id number] Authorized 03/11/2024 03/11/2025 1 1 Encounter Details Date Type Department Care Team (Late st Contact Info) Description 03/11/2024 3:00 PM EST Office Visit [facility] [address] [place] [address] Simba Gibson MD [address] [place], [place] [phone] Routine physical examination (Primary Dx); 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 female who presents for No chief complaint on file.. Patient is here for a routine physical examination. No particular concerns other than feeling discouraged for not being able to achieve her fitness goals even though she has a very active lifestyle and healthy eating habits. She does report eating more when at home and bored but usually healthy snacks. Review of Systems Constitutional: Negative for appetite change, fatigue and fever. HENT: Negative for ear pain, hearing loss and sore throat. Eyes: Negative for pain and visual disturbance. Respiratory: Negative for cough and shortness of breath. Cardiovascular: Negative for chest pain and palpitations. Gastrointestinal: Negative for abdominal pain, nausea and vomiting. Genitourinary: Negative for dysuria. Skin: Negative for rash. Neurological: Negative for dizziness and headaches. Psychiatric/Behavioral: Negative for sleep disturbance. Allergies Allergen Reactions Morphine Other reaction(s): prolonged effect- stay sleeping long time , N/V OBJECTIVE Vitals: 03/11/24 1457 BP: 115/77 BP Location: Left arm Patient Position: Sitting BP Cuff Size: Adult Pulse: 68 Resp: 20 Temp: 97.3 ??F (36.3 ??C) TempSrc: Temporal SpO2: 99% Weight: 147 lb (66.7 kg) Height: 5' 3 (1.6 m) Physical Exam Vitals reviewed. Constitutional: General: She is awake. Appearance: Normal appearance. She is well-developed. HENT: Head: Normocephalic and atraumatic. Right Ear: Tympanic membrane, ear canal and external ear normal. Left Ear: Tympanic membrane, ear canal and external ear normal. Nose: Nose normal. Mouth/Throat: Mouth: Mucous membranes are moist. Pharynx: Oropharynx is clear. Eyes: Extraocular Movements: Extraocular movements intact. Conjunctiva/sclera: Conjunctivae normal. Pupils: Pupils are equal, round, and reactive to light. Cardiovascular: Rate and Rhythm: Normal rate and regular rhythm. Pulses: Normal pulses. Heart sounds: Normal heart sounds. Pulmonary: Effort: Pulmonary effort is normal. Breath sounds: Normal breath sounds. Chest: Breasts: Right: Normal. Left: Normal. Abdominal: General: Bowel sounds are normal. Palpations: Abdomen is soft. Musculoskeletal: General: Normal range of motion. Cervical back: Normal range of motion and neck supple. Skin: General: Skin is warm. Capillary Refill: Capillary refill takes less than 2 seconds. Neurological: General: No focal deficit present. Mental Status: She is alert and oriented to person, place, and time. Deep Tendon Reflexes: Reflexes are normal and symmetric. Psychiatric: Mood and Affect: Mood normal. 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 Last breast MRI Normal July 2022 [...] a plan to continue this until at leastAugus2024 and potentially longer if tolerating And follow up in 6 months Plan: Obtain chest x-ray to evaluate bilateral pleural effusions and Abdominal US to evaluate cyst F/u with specialist, last seen 02/07/2024 Low vitamin D level Vitamin D level 11/22/2023 Normal Elevated AST (SGOT) Mild AST elevation noted in January 2024 Obtain Hep B panel, Abd US ( small cyst liver seen on Chest MRI as well ) Relevant Orders Hepatitis C Antibody with Reflex to HCV, RNA, Quantitative, Real-Time PCR Hepatitis B surface antigen, EIA Hepatitis B Surface Antibody, Qualitative Hepatitis B Core Antibody, Total US Abdomen Complete Hepatic Function Panel Lipid Panel, Standard Comprehensive Metabolic Panel TSH with Reflex to Free T4 Bilateral pleural effusion Incidental finding seen on Chest MRI done by Oncologist back in 08/2023. Pt denies any sob Plan: Obtain Chest x-ray. If pleural effusions persisted will proceed with further work up, if resolved no further interventions. Relevant Orders XR Chest 2 Views Tubular adenoma of colon Not due for a repeat colonoscopy until 04/2025 Health care maintenance Pap Smear: 2020 NILM, HPV neg. Repeat 5 years 2025. Mammogram: Hx of recurrent Left infiltrating ductal carcinoma, grade 3, ER positive 7 out of 8, IL positive 7 out of 8 HER-2/kamron 3+ Diagnosed Mar 2019. Prior left breast cancer diagnosed July 2006. Care managed by [facility]. Last breast MRI Normal July 2022 BMD: mild osteopenia noted on DXA most likely r/t chemo therapy, up to date. Treating with vit D. Recommended calcium, not taking. Colonoscopy: Colonoscopy at age 47; 3 polyps biopsied Positive for tubular adenoma Repeat 3 [place] [facility] [place], found 1 polyp Repeat 3 years; 2025 Relevant Orders Referral to Gynecology (Sindy) documented in this encounter Miscellaneous Notes * Assessment & Plan Note - Simba Barragan MD - 03/11/2024 3:54 PM EST Associated Problem(s): Tubular adenoma of colon Not due for a repeat colonoscopy until 04/2025 * Assessment & Plan Note - Simba Barragan MD - 03/11/2024 3:52 PM EST Associated Problem(s): Routine physical examination Physical examination today within normal limits * Assessment & Plan Note - Simba Barragan MD - 03/11/2024 11:59 AM EST Associated Problem(s): Bilateral pleural effusion Incidental finding seen on Chest MRI done by Oncologist back in 08/2023. Pt denies any sob Plan: Obtain Chest x-ray. If pleural effusions persisted will proceed with further work up, if resolved no further interventions. 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 Last breast MRI Normal July 2022 [...] a plan to continue this until at leastAugus2024 and potentially longer if tolerating And follow up in 6 months Plan: Obtain chest x-ray to evaluate bilateral pleural effusions and Abdominal US to evaluate cyst F/u with specialist, last seen 02/07/2024 * Assessment & Plan Note - Simba Barragan MD - 03/11/2024 11:23 AM EST Associated Problem(s): Elevated AST (SGOT) Mild AST elevation noted in January 2024 Obtain Hep B panel, Abd US ( small cyst liver seen on Chest MRI as well ) * Assessment & Plan Note - Simba Barragan MD - 03/11/2024 11:22 AM EST Associated Problem(s): Low vitamin D level Vitamin D level 11/22/2023 Normal * Assessment & Plan Note - Simba Barragan MD - 03/11/2024 11:20 AM EST Associated Problem(s): Health care maintenance Pap Smear: 2020 NILM, HPV neg. Repeat 5 years 2025. Mammogram: Hx of recurrent Left infiltrating ductal carcinoma, grade 3, ER positive 7 out of 8, IL positive 7 out of 8 HER-2/kamron 3+ Diagnosed Mar 2019. Prior left breast cancer diagnosed July 2006. Care managed by [facility]. Last breast MRI Normal July 2022 BMD: mild osteopenia noted on DXA most likely r/t chemo therapy, up to date. Treating with vit D. Recommended calcium, not taking. Colonoscopy: Colonoscopy at age 47; 3 polyps biopsied Positive for tubular adenoma Repeat 3 years [facility] [place], found 1 polyp Repeat 3 years; 2025 documented in this encounter Plan of Treatment Scheduled Orders Name Type Priority Associated Diagnoses Orde r Schedule Hepatitis C Antibody with Reflex to HCV, RNA, Quantitative, Real-Time PCR Lab Routine Elevated AST (SGOT) Expected: 03/11/2024 (Approximate), Expires: 03/11/2025 Hepatitis B surface antigen, EIA Lab Routine Elevated AST (SGOT) Expected: 03/11/2024 (Approximate), Expires: 03/11/2025 Hepatitis B Surface Antibody, Qualitative Lab Routine Elevated AST (SGOT) Expected: 03/11/2024 (Approximate), Expires: 03/11/2025 Hepatitis B Core Antibody, Total Lab Routine Elevated AST (SGOT) Expected: 03/11/2024 (Approximate), Expires: 03/11/2025 US Abdomen Complete Imaging Routine Elevated AST (SGOT) Ordered: 03/11/2024 Hepatic Function Panel Lab Routine Elevated AST (SGOT) Expected: 03/11/2024 (Approximate), Expires: 03/11/2025 XR Chest 2 Views Imaging Routine Bilateral pleural effusion Ordered: 03/11/2024 Lipid Panel, Standard Lab Routine Elevated AST (SGOT) Ordered: 03/11/2024 Comprehensive Metabolic Panel Lab Routine Elevated AST (SGOT) Ordered: 03/11/2024 TSH with Reflex to Free T4 Lab Routine Elevated AST (SGOT) Ordered: 03/11/2024 Scheduled Referrals Name Type Priority Associated Diagnoses Orde r Schedule Referral to Gynecology (Sindy) Outpatient Referral Routine Health care maintenance Expected: 03/11/2024 (Approximate), Expires: 03/11/2025 documented as of this encounter Visit Diagnoses Diagnosis Routine physical examination- Primary Routine general medical examination at a health care facility 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
[2024-03-14 09:09] LABS: Alanine Aminotransferase 30 U/L (0-31); Albumin Level 5.2 g/dL (3.5-5.0); Alkaline Phosphatase 67 U/L (39-117); Anion Gap 13 (12-20); Aspartate Amino Transferase 35 U/L (5-31); Bilirubin Direct 0.1 mg/dL (0.0-0.5); Bilirubin Total 0.5 mg/dL (0.0-1.0); Blood Urea Nitrogen 22 mg/dL (9-16); Calcium 10.6 mg/dL (8.4-10.2); Carbon Dioxide 27 mmol/L (22-29); Chloride 106 mmol/L (96-108); Cholesterol 252 mg/dL (<200); Estimated Glomerular Filt Rate > 60; Glucose Random 84 mg/dL (60-115); HDL Cholesterol 81 mg/dL (>40); LDL Cholesterol Calculated 158 mg/dL (<100); Potassium 3.9 mmol/L (3.3-5.1); Sodium 142 mmol/L (135-145); Total Protein 8.9 g/dL (6.5-8.0); Triglycerides 67 mg/dL (<150)
[2024-03-14 09:25] LABS: TSH reflex Free T4 4.24 uIU/mL (0.32-4.0)
[2024-03-14 09:27] LABS: HBS Num1 146.23 mIU/mL (0-7.99); HBc Num1 0.18 S/CO (0.00-0.79); HBsAGNum1 0.34 S/CO (0.00-0.99); Hepatitis B Core Antibody Nonreactive (Nonreactive); Hepatitis B Surface Antigen Negative (Negative); ~HepC Num1 0.07 S/CO (0.00-0.79); ~Hepatitis B Surface Antibody REACTIVE (Nonreactive); ~Hepatitis C Antibody Nonreactive (Nonreactive)
[2024-03-14 10:02] LABS: Free T4 (Free Thyroxine) 1.09 ng/dL (0.71-1.85)
== END 2024-03-14 07:21 | disposition home or self-care (01) ==
LOC: HO.US 07:20
PROVIDERS: Visit Provider Internal Medicine
DX: J90 Pleural effusion, not elsewhere classified (principal); R74.01 Elevation of levels of liver transaminase levels
CPT/HCPCS: 36415; 71046; 76700; 80053; 80061; 82248; 84439; 84443; 86704; 86706; 86803; 87340

== ENCOUNTER → 2024-03-14 07:22 | Outpatient (BNV) | payer OTHER, SELFPAY | PROVIDERS: Visit Provider Specialist | DX: K76.0 Fatty (change of) liver, not elsewhere classified (principal); J90 Pleural effusion, not elsewhere classified | CPT/HCPCS: 71046; 76700 ==

== ENCOUNTER 2024-03-28 14:34 | Outpatient (REF) | payer OTHER, SELFPAY ==
--- OUTSIDE RECORDS SUMMARY | 2024-03-28 14:36 | XMS_ITS | Encounter Summary ---
Author Organization [employer] Address [address] [facility] [address] [place] [address] Care Team Providers Care Home Appliances Mechanic Name Role Phone Simba Gibson MD Primary Care Provide r Encounter Details Date Type Department Care Team (Late st Contact Info) Description 03/23/2022 Orders Only [facility] [address] [place], [place] [phone] Hattie Frey MD [address] [place] [address] Social History Tobacco Use Types Packs/Day Years Used Date Smoking Tobacco: Never Assessed Comments Unknown Sex and Gender Information Value Date Recorded Sex Assigned at Female 12/12/2021 10:21 AM EDT Legal Sex Female 10:21 AM EDT Gender Identity Female 12/12/2021 10:21 AM EDT Sexual Orientation Straight 12/12/2021 10 :21 AM EDT documented as of this encounter Plan of Treatment Not on file documented as of this encounter Visit Diagnoses Not on filedocumented in this encounter Care Teams Home Appliances Mechanic Relationship Specialty Start Date End Date Simba Gibson MD [address] [place], [place] [phone] PCP - General Internal Medicine 02/20/18 documented as of this encounter
--- OUTSIDE RECORDS SUMMARY | 2024-03-28 14:36 | XMS_ITS | Encounter Summary ---
Author Organization [employer] Address [address] [place] [address] 7t [place] [address] Care Team Providers Care Magnetizer Name Role Phone Simba Gibson MD Primary Care Provide r Reason for Referral * Consultation (Routine) - Authorized Specialty Diagnoses / Procedures Referred By Contac t Referred To Contact Gastroenterology Diagnoses CLARKE (nonalcoholic steatohepatitis) Simba Gibson MD [address] [place] [phone] Phone: tel: fax: Baltazaryin Yogi [address] [facility], [address] [place], [place] [address] Phone: tel: fax: Referral ID Status Reason Start Date Expiration Date Visits Requested Visits Authorized [id number] Authorized Specialty Services Required 03/27/2024 03/27/2025 1 1 Encounter Details Date Type Department Care Team (Late st Contact Info) Description 03/27/2024 Orders Only [facility] [address] [place] [address] [phone] Simba Gibson MD [address] [place] [phone] CLARKE (nonalcoholic steatohepatitis) (Primary Dx) Social History Tobacco Use Types [...] as of this encounter Plan of Treatment Scheduled Referrals Name Type Priority Associated Diagnoses Order Schedule Referral to Gastroenterology Outpatient Referral Routine CLARKE (nonalcoholic steatohepatitis) Expected: 03/27/2024 (Approximate), Expires: 03/27/2025 documented as of this encounter Visit Diagnoses Diagnosis CLARKE (nonalcoholic steatohepatitis)- Primary Other chronic nonalcoholic liver disease documented in this encounter Additional Health Concerns Assessment Noted Time PHQ-9 Depression Total Score: 2 03/11/19 25 3:08 PM EST documented as of this encounter Care Teams Magnetizer Relationship Specialty Start Date End Date Simba Gibson MD [address] [place] [address] PCP - General Internal Medicine 02/20/18 documented as of this encounter
--- OUTSIDE RECORDS SUMMARY | 2024-03-28 14:36 | XMS_ITS | Encounter Summary ---
Author Organization [employer] Address [address] [facility] 7[address] [place] [address] Care Team Providers Care Head School Custodian Name Role Phone Simba Gibson MD Primary Care Provide r Encounter Details Date Type Department Care Team ([facility] st Contact Info) Description 12/26/2022 Orders Only [facility] & P[facility]S [address] [place], [place] [phone] Nico Ag MD [address] [place] [address] Muscle spasm (Primary Dx) Social History Tobacco [...] documented as of this encounter Care Teams Head School Custodian Relationship Specialty Start Date End Date Simba Gibson MD [address] [place] [address] PCP - General Internal Medicine 02/20/18 documented as of this encounter
--- OUTSIDE RECORDS SUMMARY | 2024-03-28 14:36 | XMS_ITS | Encounter Summary ---
Author Organization [employer] Address [address] [facility] [address] 7[address] [place] [address] Care Team Providers Care Shake Out Worker Name Role Phone Simba Gibson MD Primary Care Provide r Encounter Details Date Type Department Care Team ([facility] st Contact Info) Description 03/14/2024 Orders Only [facility] [address] [place], [place] [phone] Simba Gibson MD [address] [place], [place] [phone] Social History Tobacco Use Types Packs/Day Years [...] Procedure Name Priority Date/Time Associated Diagnosis Comments T4, FREE Routine 03/14/2024 8:11 AM EST documented in this encounter Results * T4, Free (03/14/2024 8:11 AM EST) Free T4 (Free Thyroxine) 1.09 0.71 - 1.85 ng/dL [facility] 03/14/2024 8:11 AM EST 03/14/2024 8:11 AM EST us Simba Barragan MD LAB BLOOD ORDERABLES Final Result [facility] [address] [place] [phone] documented in this encounter Visit Diagnoses Not on filedocumented in this encounter Additional Health Concerns Assessment Noted Time PHQ-9 Depression Total Score: 2 03/11/19 25 3:08 PM EST documented as of this encounter Care Teams Shake Out Worker Relationship Specialty Start Date End Date Simba iGbson MD [address] [place] [phone] PCP - General Internal Medicine 02/20/18 documented as of this encounter
--- OUTSIDE RECORDS SUMMARY | 2024-03-28 14:36 | XMS_ITS | Encounter Summary ---
Author Organization [employer] Address [address] [facility] [address] 7[address] [place] [address] Care Team Providers Care Placement Manager Name Role Phone Simba Gibson MD Primary Care Provide r Encounter Details Date Type Department Care Team ([facility] st Contact Info) Description 03/20/2024 Orders Only [facility] & PEDS [address] [place], [place] [phone] Hattie Frey MD [address] [place] [address] Social History Tobacco Use Types Packs/Day Years [...] documented as of this encounter Care Teams Placement Manager Relationship Specialty Start Date End Date Simba Gibson MD [address] [place] [address] PCP - General Internal Medicine 02/20/18 documented as of this encounter
--- OUTSIDE RECORDS SUMMARY | 2024-03-28 14:36 | XMS_ITS | Encounter Summary ---
Author Organization [employer] Address [address] [facility] [address] [place] [address] Care Team Providers Care Diesel Locomotive Firer/Fireman Name Role Phone Simba Gibson MD Primary Care Provide r Encounter Details Date Type Department Care Team (Late st Contact Info) Description 06/08/2023 Orders Only [facility] [address] [place] [address] ProviderGerardo MD Social History Tobacco Use Types [...] documented as of this encounter Care Teams Diesel Locomotive Firer/Fireman Relationship Specialty Start Date End Date Simba Gibson MD [address] [place] [phone] PCP - General Internal Medicine 02/20/18 documented as of this encounter
--- OUTSIDE RECORDS SUMMARY | 2024-03-28 14:37 | XMS_ITS | Encounter Summary ---
Author Organization [employer] Address [address] [facility] 7t [place] [address] Care Team Providers Care Tire Tester Name Role Phone Simba Gibson MD Primary Care Provide r Reason for Visit * Reason Comments Pre-visit Planning Pre-visit planning - LVM Encounter Details Date Type Department Care Team ([facility] Contact Info) Description 02/28/2024 Patient Outreach [facility] [address] [place], [place] [phone] Simba Gibson MD [address] [place] [address] Pre-visit Planning (Pre-visit planning - LVM ) [...] documented as of this encounter Care Teams Tire Tester Relationship Specialty Start Date End Date Simba Gibson MD [address] [place] [phone] PCP - General Internal Medicine 02/20/18 documented as of this encounter
--- OUTSIDE RECORDS SUMMARY | 2024-03-28 14:37 | XMS_ITS | Encounter Summary ---
Author Organization [email or web address] Address [address] [place] [address] Care Team Providers Care Speech Instructor Name Role Phone Frankei Gibson MD Primary Care Provide r Reason for Referral * Consultation (Routine) - Authorized Specialty Diagnoses / Procedures Referred By Cullen t Referred To Contact Midwifery Diagnoses Health care maintenance Frankie Gibson MD [address] [place] [address] Phone: tel: fax: Sindy Manriquez CNM [address] [place] [address] Phone: tel: fax: Referral ID Status Reason Start Date Expiration Date Visits Requested Visits Authorized [id number] Authorized Consult and Treat 03/11/2024 03/11/2025 1 1 * Imaging (Routine) - Closed Specialty Diagnoses / Procedures Referred By Contac t Referred To Contact Radiology Diagnoses Elevated AST (SGOT) Procedures US Abdomen Complete Frankie Gibson MD [address] [place] [address] Phone: tel: fax: [facility] [address] [place] [address] Phone: tel: fax: Referral ID Status Reason Start Date Expiration Date Visits Re quested Visits Authorized [id number] Closed 03/11/2024 03/11/2025 1 1 Encounter Details Date Type Department Care Team (Late st Contact Info) Description 03/11/2024 3:00 PM EST Office Visit [facility] [address] [place] [phone] Frankie Gibson MD [address] [place], [place] [phone] Routine physical examination (Primary Dx); Recurrent infiltrating ductal carcinoma of left breast (CMS/HCC); Low vitamin D level; Elevated AST (SGOT); Bilateral pleural effusion; Tubular adenoma of colon; Health care maintenance; Serum calcium elevated; Elevated TSH Social History Tobacco Use Types Packs/Day Years [...] documented in this encounter Progress Notes * Frankie Barragan MD - 03/11/2024 3:00 PM EST [...] of left breast (CMS/HCC) Care managed by [facility]. Last breast MRI Normal July 2022 [...] 3, ER positive 7 out of 8, MT positive 7 out of 8 HER-2/kamron 3+ Diagnosed Mar 2019. Prior left breast cancer diagnosed July 2006. Care managed by [facility]. Last breast MRI Normal July 2022 BMD: mild osteopenia noted on DXA most likely r/t chemo therapy, up to date. Treating with vit D. Recommended calcium, not taking. Colonoscopy: Colonoscopy at age 47; 3 polyps biopsied Positive for tubular adenoma Repeat 3 years [place] May-June 2022, found 1 polyp Repeat 3 years; 2025 Relevant Orders Referral to Gynecology (Sindy) documented in this encounter Miscellaneous Notes * Assessment & Plan Note - Frankie Barragan MD - 03/11/2024 3:54 PM EST Associated Problem(s): Tubular adenoma of colon Not due for a repeat colonoscopy until 04/2025 * Assessment & Plan Note - Frankie Barragan MD - 03/11/2024 3:52 PM EST Associated Problem(s): Routine physical examination Physical examination today within normal limits * Addendum Note - Frankie Barragan MD - 03/11/2024 3:00 PM ESTAddended by: FRANKIE NOBLES on: 03/18/2024 04:58 PM Modules accepted: Orders * Assessment & Plan Note - Frankie Barragan MD - 03/11/2024 11:59 AM EST Associated Problem(s): Bilateral pleural effusion Incidental finding seen on Chest MRI done by Oncologist back in 08/2023. Pt denies any sob Plan: Obtain Chest x-ray. If pleural effusions persisted will proceed with further work up, if resolved no further interventions. 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 Last breast MRI Normal July 2022 [...] a plan to continue this until at leastAugust 2024 and potentially longer if tolerating And follow up in 6 months Plan: Obtain chest x-ray to evaluate bilateral pleural effusions and Abdominal US to evaluate cyst F/u with specialist, last seen 02/07/2024 * Assessment & Plan Note - Frankie Barragan MD - 03/11/2024 11:23 AM EST Associated Problem(s): Elevated AST (SGOT) Mild AST elevation noted in January 2024 Obtain Hep B panel, Abd US ( small cyst liver seen on Chest MRI as well ) * Assessment & Plan Note - Frankie Barragan MD - 03/11/2024 11:22 AM EST Associated Problem(s): Low vitamin D level Vitamin D level 11/22/2023 Normal * Assessment & Plan Note - Frankie Barragan MD - 03/11/2024 11:20 AM EST Associated Problem(s): Health care maintenance Pap Smear: 2020 NILM, HPV neg. Repeat 5 years 2025. Mammogram: Hx of recurrent Left infiltrating ductal carcinoma, grade 3, ER positive 7 out of 8, MT positive 7 out of 8 HER-2/kamron 3+ Diagnosed Mar 2019. Prior left breast cancer diagnosed July 2006. Care managed by [facility]. Last breast MRI Normal July 2022 BMD: mild osteopenia noted on DXA most likely r/t chemo therapy, up to date. Treating with vit D. Recommended calcium, not taking. Colonoscopy: Colonoscopy at age 47; 3 polyps biopsied Positive for tubular adenoma Repeat 3 years [place] May-June 2022, found 1 polyp Repeat 3 years; 2025 documented in this encounter Plan of Treatment Scheduled Orders Name Type Priority Associated Diagnoses Orde r Schedule Calcium, Ionized Lab Routine Serum calcium elevated Expected: 03/18/2024 (Approximate), Expires: 03/18/2025 Protein Electrophoresis and [place]/Lambda Light Chains Lab Routine Serum calcium elevated Expected: 03/18/2024 (Approximate), Expires: 03/18/2025 TSH with Reflex to Free T4 Lab Routine Elevated TSH Expected: 03/18/2024 (Approximate), Expires: 06/15/2024 CBC auto differential Lab Routine Serum calcium elevated Expected: 03/18/2024 (Approximate), Expires: 03/18/2025 Scheduled Referrals Name Type Priority Associated Diagnoses Orde r Schedule Referral to Gynecology (Sindy) Outpatient Referral Routine Health care maintenance Expected: 03/11/2024 (Approximate), Expires: 03/11/2025 documented as of this encounter Procedures Procedure Name Priority Date/Time Associated Diagnosis Comments XR CHEST 2 VIEWS Routine 03/14/2024 5:28 PM EST Bilateral pleural effusion US ABDOMEN COMPLETE Routine 03/14/2024 8 :38 AM EST Elevated AST (SGOT) TSH W/REFLEX TO FT4 Routine 03/14/2024 8 :11 AM EST Elevated AST (SGOT) HEPATITIS C AB W/REFL TO HCV RNA, QN, PCR Routine 03/14/2024 8:11 AM EST Elevated AST (SGOT) HEPATITIS B SURFACE ANTIGEN, EIA Routine 03/14/2024 8:11 AM EST Elevated AST (SGOT) HEPATITIS B CORE AB TOTAL Routine 03/14/2024 8:11 AM EST Elevated AST (SGOT) HEPATITIS B SURFACE ANTIBODY, QUALITATIVE Routine 03/14/2024 8:11 AM EST Elevated AST (SGOT) HEPATIC FUNCTION PANEL Routine 8:11 AM EST Elevated AST (SGOT) LIPID PANEL, STANDARD Routine 03/14/2024 8:11 AM EST Elevated AST (SGOT) COMPREHENSIVE METABOLIC PANEL Routine 03/14/2024 8:11 AM EST Elevated AST (SGOT) documented in this encounter Results * XR Chest 2 Views (03/14/2024 5:28 PM EST) Anatomical Region Laterality Modality Chest Radiographic Shaina ging 03/14/2024 5:28 PM EST Narrative 03/14/2024 5:30 PM EST ? [facility] ?[address] ?[place] [address] ?XRay Report ? Signed ? Patient: Erna Prince ?MR#: [id number] ?? 140 ? : 1970 ?Acct:[id number] ? Age/Sex: 53 / F ?ADM Date: 03/14/24 ? Loc: HO.US ? Attending Dr: Frankie Estrada MD ? Ordering Physician: Frankie Estrada MD ?? Date of Service: 03/14/24 ?? Procedure(s): XR chest 2V ?? Accession Number(s): [id number] ? cc: Frankie Estrada MD ? CLINICAL HISTORY: previusly described bilateral pleural efussions on Chest MRI ? 2 view chest x-ray ? Comparison: None ? Findings: ?? Lungs are well inflated. ?? Cardiac silhouette is within normal limits. ?? There is asymmetric breast tissue with curvilinear density seen associated ?? with the right breast raising the possibility of a intracapsular rupture ?? of a right breast implant. ?? No focal areas of consolidation are identified within the lungs. No ?? pleural effusions. ? IMPRESSION: ?? 1. No acute findings. ? 2. Presumed unilateral right breast implant with potential intracapsular ?? implant rupture with areas of irregularity along the implant. Correlation ?? with the patient's surgical history of breast cancer screening is ?? suggested. ? This document has been electronically signed by: Chucho Hodge MD on ?? 03/14/2024 17:28:16 ? Dictated By: ?Chucho Hodge MD ? Signed By: ?<Electronically signed by Chucho Hodge MD in OV> ? 03/14/24 1729 ? DD/ 1728 ? TD/TT: 03/14/24 1728 ? Critical Care Specialist: ? Procedure Note Ar, Image - 03/14/[address] [address] XRay Report Signed Patient: Britney Prince#: [id number] 140 : 1970Acct:[id number] Age/Sex: 53 / FADM Date: 03/14/24 Loc: HO. Attending Dr: Frankie Estrada MD Ordering Physician: Frankie Estrada MD Date of Service: 03/14/24 Procedure(s): XR chest 2V Accession Number(s): [id number] cc: Frankie Estrada MD CLINICAL HISTORY: previusly described bilateral pleural efussions on ChestMRI 2 view chest x-ray Comparison: None Findings: Lungs are well inflated. Cardiac silhouette is within normal limits. There is asymmetric breast tissue with curvilinear density seen associated with the right breast raising the possibility of a intracapsular rupture of a right breast implant. No focal areas of consolidation are identified within the lungs. No pleural effusions. IMPRESSION: 1. No acute findings. 2. Presumed unilateral right breast implant with potential intracapsular implant rupture with areas of irregularity along the implant. Correlation with the patient's surgical history of breast cancer screening is suggested. This document has been electronically signed by: Chucho Hodge MD on 03/14/2024 17:28:16 Dictated By: Chucho Hodge MD Signed By: <Electronically signed by Chucho Hodge MD in OV> 03/14/24 172 DD/ 27 TD/TT: 03/14/241727 Critical Care Specialist: us Frankie Barragan MD IMG XR PROCEDURES Fin al Result * US Abdomen Complete (03/14/2024 8:38 AM EST) Anatomical Region Laterality Modality Abdomen Ultrasound 03/14/2024 8:38 AM EST Narrative 03/14/2024 8:40 AM EST ? [facility] ?[address] ?[place] [address] ? Ultrasound Report ? Signed ? Patient: Begolli,Erna ?MR#: [id number] ?? 140 ? : 1970 ?Acct:[id number] ? Age/Sex: 53 / F ?ADM Date: 03/14/24 ? Loc: HO.US ? Attending Dr: Frankie Estrada MD ? Ordering Physician: Frankie Estrada MD ?? Date of Service: 03/14/24 ?? Procedure(s): US abdomen complete ?? Accession Number(s): [id number] ? cc: Frankie Estrada MD ? CLINICAL HISTORY: elevated AST ? US abdomen complete ? Comparison: None ? Findings: ?? The visualized pancreas is normal. ?? The aorta and inferior vena cava are normal caliber. ? The appearance of the liver suggests fatty infiltration without focal ?? lesion. ?? There is no intrahepatic bile duct dilatation. ?? The common duct is 3.0 mm in diameter. ?? There is a sludge ball or incidental 3 mm gallbladder polyp. The ?? gallbladder is otherwise normal. ?? There is no sonographic Villagomez sign. ?? The main portal vein is antegrade. ? The right kidney is 11.7 cm in length. ?? The left kidney is 11.4 cm in length. ?? The spleen is normal. ?? No ascites. ? IMPRESSION: ?? 1. Hepatic steatosis. ? This document has been electronically signed by: Petrso Terrell MD on ?? 03/14/2024 08:38:47 ? Dictated By: ?Petros Terrell MD ? Signed By: ?<Electronically signed by Petros Terrell MD in OV> ?03/14/24839 ? DD/ 7 ? TD/TT: 03/14/24837 ? Critical Care Specialist: ? Procedure Note Donotuseinterpreter, Image - 03/14/2024 [place] [address] Ultrasound Report Signed Patient: Britney Prince#: [id number] 140 : 1970Acct:[id number] Age/Sex: 53 / FADM Date: 03/14/24 Loc: HO.US Attending Dr: Frankie Estrada MD Ordering Physician: Frankie Estrada MD Date of Service: 03/14/24 Procedure(s): US abdomen complete Accession Number(s): [id number] cc: Frankie Estrada MD CLINICAL HISTORY: elevated AST US abdomen complete Comparison: None Findings: The visualized pancreas is normal. The aorta and inferior vena cava are normal caliber. The appearance of the liver suggests fatty infiltration without focal lesion. There is no intrahepatic bile duct dilatation. The common duct is 3.0 mm in diameter. There is a sludge ball or incidental 3 mm gallbladder polyp. The gallbladder is otherwise normal. There is no sonographic Villagomez sign. The main portal vein is antegrade. The right kidney is 11.7 cm in length. The left kidney is 11.4 cm in length. The spleen is normal. No ascites. IMPRESSION: 1. Hepatic steatosis. This document has been electronically signed by: Petros Terrell MD on 03/14/2024 08:38:47 Dictated By: Petros Terrell MD Signed By: <Electronically signed by Petros Terrell MD in OV> 03/14/24839 DD/ 7 TD/TT: 03/14/24837 Critical Care Specialist: us Frankie Barragan MD IMG US PROCEDURES Fin al Result * (ABNORMAL) TSH with Reflex to Free T4 (03/14/2024 8:11 AM EST) TSH reflex Free T4 4.24(H) 0.32 - 4.0 uIU/mL [facility] Blood Venous blood specimen / Unknown 03/14/2024 8:11 AM EST 03/14/2024 8:11 AM EST Frankie Barragan MD LAB BLOOD ORDERABLES Final Result [facility] [address] [place] [address] [phone] * (ABNORMAL) Comprehensive Metabolic Panel (03/14/2024 8:11 AM EST) Pathologist [facility] Sodium 142 135 - 145 mmol/L [facility] Potassium 3.9 3.3 - 5.1 mmol/L [facility] Chloride 106 96 - 108 mmol/L [facility] Carbon Dioxide 27 22 - 29 mmol/L [facility] Anion Gap 13 12 - 20 [facility] Urea Nitrogen (BUN) 22(H) 9 - 16 mg/dL [facility] Creatinine, Serum 0.76 0.5 - 1.4 mg/dL [facility] Estimated Glomerular Filt Rate >60 [facility] Comment:Chronic Kidney Disea se: Estimated GFR < 60 mL/min/1.97e0Ftsmoo Kidney Disease: Estimated GFR < 15 mL/min/1.73m2 Glucose 84 60 - 115 mg/dL [facility] Calcium 10.6(H) 8.4 - 10.2 mg/dL [facility] Bilirubin, Total 0.5 0.0 - 1.0 mg/dL [facility] Aspartate Amino Transferase 35(H) 5 - 31 U/L [facility] Alanine Aminotransferase 30 0 - 31 U/L [facility] Total Protein 8.9(H) 6.5 - 8.0 g/dL [facility] Albumin Level 5.2(H) 3.5 - 5.0 g/dL [facility] Alkaline Phosphatase 67 39 - 117 U/L [facility] Blood Venous blood specimen / Unknown 03/14/2024 8:11 AM EST 03/14/2024 8:11 AM EST Frankie Barragan MD LAB BLOOD ORDERABLES Final Result Performing Organization Address [facility] Co de Phone Number [facility] [address] [place] [address] [phone] * (ABNORMAL) Lipid Panel, Standard (03/14/2024 8:11 AM EST) Triglycerides 67 <150 mg/dL [facility] Comment:Desirable Triglyceri de: less than 150 mg/dLBorderline High Triglyceride 150-199 mg/dLHigh Triglyceride: 200-499 mg/dLVery High Triglyceride: greater than or equal to 5OO mg/dL Cholesterol 252(H) <200 mg/dL [facility] Comment:Desirable Cholestero l: less than 200 mg/dLBorderline High Cholesterol: 200-239 mg/dLHigh Cholesterol: greater than 239 mg/dL LDL Cholesterol Calculated 158(H) <100 mg/dL [facility] Comment:Desirable LDL: less than 100 mg/dLNear Optimal/Above Optimal LDL: 110- 129 mg/dLBorderline High LDL: 130-159 mg/dLHigh LDL: 160-189 mg/dLVery High LDL: greater than or equal to 190 mg/dL HDL Cholesterol 81 >40 mg/dL [facility] Comment:Desirable HDL: great er than 40 mg/dL Note: This HDL assay may give artificially low results in patients with liver disease. Blood Venous blood specimen / Unknown 03/14/2024 8:11 AM EST 03/14/2024 8:11 AM EST Frankie Barragan MD LAB BLOOD ORDERABLES Final Result Performing Organization Address City/[facility]/ZIP Co de Phone Number [facility] [address] [place] [address] [phone] * Hepatic Function Panel (03/14/2024 8:11 AM EST) Pathologist [facility] Bilirubin, Direct 0.1 0.0 - 0.5 mg/dL [facility] Blood Venous blood specimen / Unknown 03/14/2024 8:11 AM EST 03/14/2024 8:11 AM EST us Frankie Barragan MD LAB BLOOD ORDERABLES Final Result Performing Organization Address [facility] Co de Phone Number [facility] [address] [place] [phone] * Hepatitis B Core Antibody, Total (03/14/2024 8:11 AM EST) [facility] Hepatitis B Core Antibody Nonreactive Nonreactive [facility] Blood Venous blood specimen / Unknown 03/14/2024 8:11 AM EST 03/14/2024 8:11 AM EST us Frankie Barragan MD LAB BLOOD ORDERABLES Final Result Performing Organization Address [facility] de Phone Number [facility] [address] [place] [phone] * Hepatitis B Surface Antibody, Qualitative (03/14/2024 8:11 AM EST) Pathologist [facility] ~Hepatitis B Surface Antibody REACTIVE Nonreactive [facility] Comment:REACTIVE: > 11.99 mI U/mL Blood Venous blood specimen / Unknown 03/14/2024 8:11 AM EST 03/14/2024 8:11 AM EST us Frankie Barragan MD LAB BLOOD ORDERABLES Final Result Performing Organization Address [facility] de Phone Number [facility] [address] [place] [phone] * Hepatitis B surface antigen, EIA (03/14/2024 8:11 AM EST) [facility] Hepatitis B Surface Ag Negative Negative [facility] Blood Venous blood specimen / Unknown 03/14/2024 8:11 AM EST 03/14/2024 8:11 AM EST Frankie Barragan MD LAB BLOOD ORDERABLES Final Result Performing Organization Address City/[facility]/ZIP Co de Phone Number [facility] [address] [place] [phone] [phone] * Hepatitis C Antibody with Reflex to HCV, RNA, Quantitative, Real-Time PCR (03/14/2024 8:11 AM EST) Hepatitis C Antibody Nonreactive Nonreactive [facility] Comment:Antibodies to HCV no t detected; does not exclude early acuteHCV infection. 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 (CMS/HCC) Low vitamin D level Elevated AST (SGOT) Bilateral pleural effusion Unspecified pleural effusion Tubular adenoma of colon Benign neoplasm of colon Health care maintenance Serum calcium elevated Hypercalcemia Elevated TSH Other abnormal blood chemistry documented in this encounter Additional Health Concerns Assessment Noted Time PHQ-9 Depression Total Score: 2 03/11/19 25 3:08 PM EST documented as of this encounter Care Teams Speech Instructor Relationship Specialty Start Date End Date Frankie Gibson MD [address] [place] [phone] PCP - General Internal Medicine 02/20/18 documented as of this encounter
--- OUTSIDE RECORDS SUMMARY | 2024-03-28 14:37 | XMS_ITS | Clinical Summary ---
Author Organization [employer] Address [address] [facility] 7[address] [place] [address] Care Team Providers Care Industrial Machinery Mechanic Name Role Phone Simba Gibson MD Primary Care Provide r Allergies Active Allergy Reactions Criticality Noted Date Comments Morphine 08/21/2022 Other reaction(s): prolonged effect- stay sleeping long time , N/V Medications SUMAtriptan (Imitrex) 50 MG tablet Take 1 tablet by mouth. 10/04/19 21 Active polyethylene glycol, PEG, 3350 (MiraLax) 17 GM/SCOOP powderIndication s:Constipation, unspecified constipation type Take 17 g by mouth in the morning. 527 g 3 08/22/19 23 Active docusate sodium (Colace) 100 MG capsuleIndicatio ns:Constipation, unspecified constipation type Take 1 capsule (100 mg) by mouth 2 times daily. 180 capsule 1 08/22/19 23 Active letrozole (Femara) 2.5 MG chemo tablet Take 2.5 mg by mouth Once per day. 05/17/19 24 Active Fezolinetant (Veozah) 45 MG tablet Take 1 tablet by mouth Once per day. 30 tablet 2 08/28/19 24 Active phentermine 15 MG capsule Take 1 capsule (15 mg) by mouth before breakfast. 30 capsule 03/20/19 25 025 Active topiramate (Topamax) 50 MG tablet Take 1 tablet (50 mg) by mouth Once per day. 30 tablet 3 03/20/19 25 025 Active ergocalciferol (Vitamin D2) 1.25 MG (25534 UT) capsuleIndicatio ns:Low vitamin D level Take 1 capsule (1.25 mg) by mouth 1 (one) time per week. 6 capsule 12/01/19 23 025 Discontinued(Th erapy completed) phentermine 15 MG capsule Take 1 capsule (15 mg) by mouth before breakfast. 30 capsule 01/31/20 24 025 Discontinued(Re order (will not trigger notification to Pharmacy)) topiramate (Topamax) 50 MG tablet Take 1 tablet (50 mg) by mouth Once per day. 30 tablet 3 01/31/20 24 025 Discontinued(Re order (will not trigger notification to Pharmacy)) Active Problems Problem Noted Date Diagnosed Date [...] 3, ER positive 7 out of 8, TN positive 7 out of 8 HER-2/kamron 3+ Diagnosed Mar 2019. Prior left breast cancer diagnosed July 2006. Care managed by [facility]. Last breast MRI Normal July 2022 BMD: mild osteopenia noted on DXA most likely r/t chemo therapy, up to date. Treating with vit D. Recommended calcium, not taking. Colonoscopy: Colonoscopy at age 47; 3 polyps biopsied Positive for tubular adenoma Repeat 3 years [facility] May-June 2022, found 1 polyp Repeat 3 years; 2025 Lung cancer: never smoker Eye: Last visit within 2 years. Wears contacts. No concerns Dental: 07/2022 Assessment & Plan (03/11/2024 11:20 AM EST): Pap Smear: 2020 NILM, HPV neg. Repeat 5 years 2025. Mammogram: Hx of recurrent Left infiltrating ductal carcinoma, grade 3, ER positive 7 out of 8, TN positive 7 out of 8 HER-2/kamron 3+ Diagnosed Mar 2019. Prior left breast cancer diagnosed July 2006. Care managed by [facility]. Last breast MRI Normal July 2022 BMD: mild osteopenia noted on DXA most likely r/t chemo therapy, up to date. Treating with vit D. Recommended calcium, not taking. Colonoscopy: Colonoscopy at age 47; 3 polyps biopsied Positive for tubular adenoma Repeat 3 years [facility] May-June 2022, found 1 polyp Repeat 3 years; 2025 Follow-up examination after gynecological surger y 08/21/2022 Overview (08/21/2022): S/p BSO on 12/05/[address] Nguyen Followed by [facility] for routine first aid attendant visits Assessment & Plan (08/21/2022 3:09 PM EDT): F/u PRN Malignant neoplasm of breast 08/21/2022 Overview (08/21/2022): Hx of recurrent Left infiltrating ductal carcinoma, grade 3, ER positive 7 out of 8, TN positive 7 out of 8 HER-2/kamron 3+ Diagnosed Mar 2019. Prior left breast cancer T1c N0, lower inner quadrant, ER positive, TN positive diagnosed July 2006. Current regimen Letrozole 2.5 mg daily, started 09/2021 Zoledronic acid 4 doses, 1 dose every 6 months. Doses: 01/12/20, 08/11/20, 02/09/21, 07/21/21 s/p left mastectomy, sentinel node with reconstruction/silicone implant Assessment & Plan (08/21/2022 7:10 PM EDT): Care managed by [facility]. Last breast MRI Normal July 2022 F/u with specialist History of pulmonary embolism 08/21/2022 Overview (08/21/2022): Completed Eliquis therapy 08/11/22 Assessment & Plan (08/21/2022 7:12 PM EDT): F/u PRN Recurrent infiltrating ductal carcinoma of left breast 08/21/2022 Overview (03/11/2024): Hx of recurrent Left infiltrating ductal carcinoma, grade 3, ER positive 7 out of 8, TN positive 7 out of 8 HER-2/kamron 3+ Diagnosed Mar 2019. Prior left breast cancer T1c N0, lower inner quadrant, ER positive, TN positive diagnosed July 2006. Current regimen Letrozole [...] cycles with trastuzumab for 1 year between [id number] Left niple sparing mastectomy with reconstruction and silicone implant in 2006 Assessment & Plan (03/11/2024 12:06 PM EST): Care managed by [facility]. Last breast MRI Normal July [...] (08/21/2022 7:10 PM EDT): Care managed by [facility]. Last breast MRI Normal July 2022 F/u with specialist Tubular adenoma of colon 08/21/2022 Overview (08/21/2022): Colonoscopy at age 47; 3 polyps biopsied Positive for tubular adenoma Repeat 3 years [facility] May-June 2022, found 1 polyp Repeat 3 [...] Encounters Date Type Department Care Team Description 03/27/2024 Orders Only [facility] [address] [place] [address] Simba Gibson MD CLARKE (nonalcoholic steatohepatitis) (Primary Dx) 03/20/2024 Orders Only [facility] [address] [place] [address] Hattie Frey MD 03/14/2024 Orders Only [facility] [address] [place] [address] Simba Gibson MD 03/11/2024 3:00 PM EST Office Visit [facility] [address] [place] [address] Simba Gibson MD Routine physical examination (Primary Dx); Recurrent infiltrating ductal carcinoma of left breast (CMS/HCC); Low vitamin D level; Elevated AST (SGOT); Bilateral pleural effusion; Tubular adenoma of colon; Health care maintenance; Serum calcium elevated; Elevated TSH 03/11/2024 Travel 03/04/2024 Travel 02/29/[address] [address] Simba Gibson MD Chart Prep 02/28/2024 Patient Outreach [address] [address] Simba Gibson MD Pre-visit Planning (Pre-visit planning - LVM ) 02/01/[address] [address] Sindy Manriquez, [facility] 01/31/2024 Orders Only [facility] [address] [place] [address] Hattie Frey MD 01/29/2024 Refill [facility] [address] [place] [address] Simba Gibson MD 01/04/2024 Orders Only [facility] [address] [place] [address] Hattie Frey MD from Last 3 Months Immunizations Name Administration [...] Sigmoidoscopy 1972 Family Planning (PISQ) 10/10/1987 Hepatitis A Vaccines (1 of 2 - Risk 2-dose series) 10/10/1991 Hepatitis B Vaccines (1 of 3 - 19+ 3-dose series) 10/10/1991 Pap Smear 1993 Cervical Cancer Screening 2002 HPV/Cotest 2002 Zoster Vaccines (1 of 2) 2022 Pneumococcal Vaccine: 50+ Years (3 of 3 - PCV20 or PCV21) 11/23/2024 11/24/2019, 09/02/2019 Alcohol/Substance Use Screening 03/11/2025 03/11/2024 Depression Screening 03/11/2025 03/11/2024, 03/11/19 25 SDOH Screening 03/11/2025 03/11/2024 Tobacco Screening 03/11/2025 03/11/2024 Colonoscopy 05/02/2025 05/02/2022, 06/07/2018 Colorectal Cancer Screening 05/02/2025 DTaP/Tdap/Td Vaccines (3 - Td or Tdap) 06/01/2031 05/31/2021, 06/08/2011 RSV Patients and Patients Aged 60 years or older (1 - 1-dose 75+ series) 10/10/2047 HIV Screening Completed 08/29/2022 Influenza Vaccine Completed 11/02/2023, , 11/03/2021, Additional history exists COVID-19 Vaccine Completed 11/13/2023, , 09/27/2020, Additional history exists Hepatitis C Screening Completed 03/14/2024, 022 HIB Vaccines Aged Out No longer eligi [...] 8 :38 AM EST Elevated AST (SGOT) T4, FREE Routine 03/14/2024 8:11 AM EST HEPATIC FUNCTION PANEL Routine 8:11 AM EST Elevated AST (SGOT) HEPATITIS B CORE AB TOTAL Routine 03/14/2024 8:11 AM EST Elevated AST (SGOT) HEPATITIS B SURFACE ANTIBODY, QUALITATIVE Routine 03/14/2024 8:11 AM EST Elevated AST (SGOT) HEPATITIS B SURFACE ANTIGEN, EIA Routine 03/14/2024 8:11 AM EST Elevated AST (SGOT) HEPATITIS C AB W/REFL TO HCV RNA, QN, PCR Routine 03/14/2024 8:11 AM EST Elevated AST (SGOT) TSH W/REFLEX TO FT4 Routine 03/14/2024 8 :11 AM EST Elevated AST (SGOT) COMPREHENSIVE METABOLIC PANEL Routine 03/14/2024 8:11 AM EST Elevated AST (SGOT) LIPID PANEL, STANDARD Routine 03/14/2024 8:11 AM EST Elevated AST (SGOT) AST Routine 02/12/2024 10:43 AM EST Elevated AST (SGOT) BILIRUBIN, TOTAL Routine 01/31/2024 9:00 AM EST remote computer terminal operator use of drug BILIRUBIN, DIRECT Routine 01/31/2024 9:0 0 AM EST [facility] use of drug AST Routine 01/31/2024 9:00 AM EST [facility] use of drug ALT Routine 01/31/2024 9:00 AM EST [facility] use of drug HIV ANTIBODY/ANTIGEN ([place] DPH) Routine 08/29/2022 8:38 AM EDT HM COLONOSCOPY Routine 05/02/2022 9:06 AM EDT from Last 3 Months or Most Recently Relevant to Health Maintenance Results * XR Chest 2 Views (03/14/2024 5:28 PM EST) Anatomical Region Laterality Modality Chest Radiographic Shaina ging 03/14/2024 5:28 PM EST Narrative 03/14/2024 5:30 PM EST ? [facility] ?[address] ?[place] [address] ?XRay Report ? Signed ? Patient: Erna Prince ?MR#: [id number] ?? 140 ? : 1970 ?Acct:[id number] ? Age/Sex: 53 / F ?ADM Date: 03/14/24 ? Loc: HO.US ? Attending Dr: Simba Estrada MD ? Ordering Physician: Simba Estrada MD ?? Date of Service: 03/14/24 ?? Procedure(s): XR chest 2V ?? Accession Number(s): [id number] ? cc: Simba Estrada MD ? CLINICAL HISTORY: previusly described [...] DD/ 1728 ? TD/TT: 03/14/24 1728 ? Ramp And Cargo Supervisor: ? Procedure Note Donfelipajeffrubinater, Image - 03/14/[address] [address] XRay Report Signed Patient: Britney Prince#: [id number] 140 : 1970Acct:[id number] Age/Sex: 53 / FADM Date: 03/14/24 Loc: HO. Attending Dr: Simba Estrada MD Ordering Physician: Simba Estrada MD Date of Service: 03/14/24 Procedure(s): XR chest 2V Accession Number(s): [id number] cc: Simba Estrada MD CLINICAL HISTORY: previusly described bilateral [...] OV> 03/14/24 172 DD/ 27 TD/TT: 03/14/241727 Ramp And Cargo Supervisor: us Simba Barragan MD IMG XR PROCEDURES Fin al Result * US Abdomen Complete (03/14/2024 8:38 AM EST) Anatomical Region Laterality Modality Abdomen Ultrasound 03/14/2024 8:38 AM EST Narrative 03/14/2024 8:40 AM EST ? [facility] ?[address] ?[place] [address] ? Ultrasound Report ? Signed ? Patient: Veronicaollyin,Erna ?MR#: [id number] ?? 140 ? : 1970 ?Acct:[id number] ? Age/Sex: 53 / F ?ADM Date: 03/14/24 ? Loc: HO.US ? Attending Dr: Simba Estrada MD ? Ordering Physician: Simba Estrada MD ?? Date of Service: 03/14/24 ?? Procedure(s): US abdomen complete ?? Accession Number(s): [id number] ? cc: Simba Estrada MD ? CLINICAL HISTORY: elevated AST [...] electronically signed by: Petros Terrell MD on ?? 03/14/2024 08:38:47 ? Dictated By: ?Petros Terrell MD ? Signed By: ?<Electronically signed by Petros Terrell MD in OV> ?03/14/24839 ? DD/ 7 ? TD/TT: 03/14/24 0838 ? Ramp And Cargo Supervisor: ? Procedure Note Donradha, Image - 03/14/2024 [place] [address] Ultrasound Report Signed Patient: Brtiney Prince#: [id number] 140 : 1970Acct:[id number] Age/Sex: 53 / FADM Date: 03/14/24 Loc: HO.US Attending Dr: Simba Estrada MD Ordering Physician: Simba Estrada MD Date of Service: 03/14/24 Procedure(s): US abdomen complete Accession Number(s): [id number] cc: Simba Estrada MD CLINICAL HISTORY: elevated AST US [...] in OV> 03/14/24839 DD/ 7 TD/TT: 03/14/24837 Ramp And Cargo Supervisor: us Simba Barragan MD IMG US PROCEDURES Fin al Result * (ABNORMAL) TSH with Reflex to Free T4 (03/14/2024 8:11 AM EST) TSH reflex Free T4 4.24(H) 0.32 - 4.0 uIU/mL [facility] Blood Venous blood specimen / Unknown 03/14/2024 8:11 AM EST 03/14/2024 8:11 AM EST Simba Barragan MD LAB BLOOD ORDERABLES Final Result Performing Organization Address [facility] Co de Phone Number [facility] [address] [place] [phone] * Hepatitis C Antibody with Reflex to HCV, RNA, Quantitative, Real-Time PCR (03/14/2024 8:11 AM EST) Pathologist [facility] Hepatitis C Antibody Nonreactive Nonreactive [facility] Comment:Antibodies to HCV no t detected; does not exclude early acuteHCV infection. Blood Venous blood specimen / Unknown 03/14/2024 8:11 AM EST 03/14/2024 8:11 AM EST Simba Barragan MD LAB BLOOD ORDERABLES Final Result Performing Organization Address [facility] Co de Phone Number [facility] [address] [place] [phone] * Hepatitis B surface antigen, EIA (03/14/2024 8:11 AM EST) Pathologist [facility] Hepatitis B Surface Ag Negative Negative [facility] Blood Venous blood specimen / Unknown 03/14/2024 8:11 AM EST 03/14/2024 8:11 AM EST Simba Barragan MD LAB BLOOD ORDERABLES Final Result Performing Organization Address [facility] Co de Phone Number [facility] [address] [place] [phone] * Hepatitis B Core Antibody, Total (03/14/2024 8:11 AM EST) Pathologist [facility] Hepatitis B Core Antibody Nonreactive Nonreactive [facility] Blood Venous blood specimen / Unknown 03/14/2024 8:11 AM EST 03/14/2024 8:11 AM EST us Simba Barragan MD LAB BLOOD ORDERABLES Final Result Performing Organization Address [facility] Co de Phone Number [facility] [address] [place] [phone] * Hepatitis B Surface Antibody, Qualitative (03/14/2024 8:11 AM EST) ~Hepatitis B Surface Antibody REACTIVE Nonreactive [facility] Comment:REACTIVE: > 11.99 mI U/mL Blood Venous blood specimen / Unknown 03/14/2024 8:11 AM EST 03/14/2024 8:11 AM EST us Simba Barragan MD LAB BLOOD ORDERABLES Final Result Performing Organization Address [facility] Co de Phone Number [facility] [address] [place] [phone] * T4, Free (03/14/2024 8:11 AM EST) Free T4 (Free Thyroxine) 1.09 0.71 - 1.85 ng/dL [facility] 03/14/2024 8:11 AM EST 03/14/2024 8:11 AM EST us Simba Barragan MD LAB BLOOD ORDERABLES Final Result Performing Organization Address [facility] Co de Phone Number [facility] [address] [place] [phone] * Hepatic Function Panel (03/14/2024 8:11 AM EST) Bilirubin, Direct 0.1 0.0 - 0.5 mg/dL [facility] Blood Venous blood specimen / Unknown 03/14/2024 8:11 AM EST 03/14/2024 8:11 AM EST Simba Barragan MD LAB BLOOD ORDERABLES Final Result Performing Organization Address [facility] Co de Phone Number [facility] [address] [place] [phone] * (ABNORMAL) Lipid Panel, Standard (03/14/2024 8:11 AM EST) Triglycerides 67 <150 mg/dL [facility] Comment:Desirable Triglyceri de: less than 150 mg/dLBorderline High Triglyceride 150-199 mg/dLHigh Triglyceride: 200-499 mg/dLVery High Triglyceride: greater than or equal to 5OO mg/dL Cholesterol 252(H) <200 mg/dL [facility] Comment:Desirable Cholestero l: less than 200 mg/dLBorderline High Cholesterol: 200-239 mg/dLHigh Cholesterol: greater than 239 mg/dL LDL Cholesterol Calculated 158(H) <100 mg/dL [facility] Comment:Desirable LDL: less than 100 mg/dLNear Optimal/Above Optimal LDL: 110- 129 mg/dLBorderline High LDL: 130-159 mg/dLHigh LDL: 160-189 mg/dLVery High LDL: greater than or equal to 190 mg/dL HDL Cholesterol 81 >40 mg/dL [facility] Comment:Desirable HDL: great er than 40 mg/dL Note: This HDL assay may give artificially low results in patients with liver disease. Blood Venous blood specimen / Unknown 03/14/2024 8:11 AM EST 03/14/2024 8:11 AM EST Simba Barragan MD LAB BLOOD ORDERABLES Final Result Performing Organization Address City/[facility]/ZIP Co de Phone Number [facility] [address] [place] [phone] * (ABNORMAL) Comprehensive Metabolic Panel (03/14/2024 8:11 AM EST) Sodium 142 135 - 145 mmol/L [facility] Potassium 3.9 3.3 - 5.1 mmol/L [facility] Chloride 106 96 - 108 mmol/L [facility] Carbon Dioxide 27 22 - 29 mmol/L [facility] Anion Gap 13 12 - 20 [facility] Urea Nitrogen (BUN) 22(H) 9 - 16 mg/dL [facility] Creatinine, Serum 0.76 0.5 - 1.4 mg/dL [facility] Estimated Glomerular Filt Rate >60 [facility] Comment:Chronic Kidney Disea se: Estimated GFR < 60 mL/min/1.56n4Lpcvuz Kidney Disease: Estimated GFR < 15 mL/min/1.73m2 Glucose 84 60 - 115 mg/dL [facility] Calcium 10.6(H) 8.4 - 10.2 mg/dL [facility] Bilirubin, Total 0.5 0.0 - 1.0 mg/dL [facility] Aspartate Amino Transferase 35(H) 5 - 31 U/L [facility] Alanine Aminotransferase 30 0 - 31 U/L [facility] Total Protein 8.9(H) 6.5 - 8.0 g/dL [facility] Albumin Level 5.2(H) 3.5 - 5.0 g/dL [facility] Alkaline Phosphatase 67 39 - 117 U/L [facility] Blood Venous blood specimen / Unknown 03/14/2024 8:11 AM EST 03/14/2024 8:11 AM EST us Simba Barragan MD LAB BLOOD ORDERABLES Final Result [facility] [address] [place] [phone] * (ABNORMAL) AST (02/12/2024 10:43 AM EST) Only the most recent of2 resultswithin the time period is included. Aspartate Amino Transferase 37(H) 5 - 31 U/L [facility] Blood Venous blood specimen / Unknown 02/12/2024 10:43 AM EST 02/12/2024 2:57 PM EST [facility] BLOOD ORDERABLES Alisson l Result Performing Organization Address City/[facility]/ZIP Co de Phone Number [facility] [address] [place] [phone] * ALT (01/31/2024 9:00 AM EST) Alanine Aminotransferase 31 0 - 31 U/L [facility] Blood Venous blood specimen / Unknown 01/31/2024 9:00 AM EST 01/31/2024 2:28 PM EST [facility] BLOOD ORDERABLES Alisson l Result Performing Organization Address [facility]/ZIP Co de Phone Number [facility] [address] [place] [phone] * Bilirubin, Direct (01/31/2024 9:00 AM EST) Bilirubin, Direct 0.1 0.0 - 0.5 mg/dL [facility] Blood Venous blood specimen / Unknown 01/31/2024 9:00 AM EST 01/31/2024 2:28 PM EST [facility] LAB BLOOD ORDERABLES Alisson l Result Performing Organization Address City/[facility]/ZIP Co de Phone Number [facility] [address] [place] [phone] * Bilirubin, Total (01/31/2024 9:00 AM EST) Bilirubin, Total 0.4 0.0 - 1.0 mg/dL [facility] Blood Venous blood specimen / Unknown 01/31/2024 9:00 AM EST 01/31/2024 2:28 PM EST us Sindy Manriquez CN LAB BLOOD ORDERABLES Alisson l Result Performing Organization Address City/[facility]/ZIP Co de Phone Number [facility] [address] [place] [phone] * HIV Ab/Ag (RADHA MILLS) (08/29/2022 8:38 AM EDT) HIV AB/AG Nonreactive Nonreactive [facility] Comment:HIV-1 p24 Ag and/or HIV-1/HIV-2 Ab not detected.A test result that is nonreactive does not exclude thepossibility of exposure to or infection with HIV-1 and/orHIV-2. Nonreactive results in this assay for individualswith prior exposure to HIV-1 and/or HIV-2 may be due toantigen and antibody levels that are below the limit ofdetection of this assay.The [employer] Counter Clerk HIV Ag/Ab Combo assay result andsupplemental assay results should be interpreted inconjunction with the patient's clinical presentation,history and other laboratory results. If the results areinconsistent with clinical evidence, additional testing issuggested to confirm the result. 08/29/2022 8:38 AM EDT 08/29/2022 2:29 PM EDT us Brenda Dela Cruz SENIOR JAVA SOFTWARE DEVELOPER LAB BLOOD ORDERABLES Final Result Performing Organization Address [facility]/ZIP Co de Phone Number [facility] [address] [place] [phone] * Hm Colonoscopy (05/02/2022 9:06 AM EDT) us Historical Provider HEALTH MAINTENANCE Final Result from Last 3 Months or Most Recently Relevant to Health Maintenance Insurance [facility] , [address] [place] [address] Care Teams Industrial Machinery Mechanic Relationship Specialty Start Date End Date Simba Gibson MD [address] [place] [phone] PCP - General Internal Medicine 02/20/18
--- OUTSIDE RECORDS SUMMARY | 2024-03-28 14:37 | XMS_ITS | Encounter Summary ---
Author Organization [employer] Address [address] [place] [address] Care Team Providers Care Acoustic Engineer Name Role Phone Simba Gibson MD Primary [...] documented as of this encounter Care Teams Acoustic Engineer Relationship Specialty Start Date End Date Simba Gibson MD [address] [place] [address] PCP - General Internal Medicine 02/20/18 documented as of this encounter
--- OUTSIDE RECORDS SUMMARY | 2024-03-28 14:37 | XMS_ITS | Encounter Summary ---
Author Organization [employer] Address [address] [place] [address] Care Team Providers Care Orthotics Prosthetics Assistant Name Role Phone Simba Gibson MD [...] documented as of this encounter Care Teams Orthotics Prosthetics Assistant Relationship Specialty Start Date End Date Simba Gibson MD [address] [place] [address] PCP - General Internal Medicine 02/20/18 documented as of this encounter
--- OUTSIDE RECORDS SUMMARY | 2024-03-28 14:37 | XMS_ITS | Encounter Summary ---
Author Organization [employer] Address [address] [facility] [address] [place] [address] Care Team Providers Care Science Teacher Name Role Phone Simba Gibson MD Primary Care Provide r Reason for Visit * Reason Onset Date Comments Chart Prep 02/29/2024 Encounter Details Date Type Department Care Team ([facility] st Contact Info) Description 02/29/2024 Telephone [facility] [address] [place], [place] [phone] Simba Gibson MD [address] [place], [place] [phone] Chart Prep Social History Tobacco Use Types [...] documented as of this encounter Care Teams Science Teacher Relationship Specialty Start Date End Date Simba Gibson MD [address] [place] [phone] PCP - General Internal Medicine 02/20/18 documented as of this encounter
[2024-03-28 17:55] LABS: MANUAL DIFF FLAG NO
[2024-03-28 17:59] LABS: Basophils Absolute Auto 0.1 X10*3/uL (0.0-0.2); Basophils Percent Auto 1.2 % (0-2); Eosinophils Absolute Auto 0.1 X10*3/uL (0.0-0.4); Eosinophils Percent Auto 1.2 % (0-4); Hematocrit 43.2 % (37.0-47.0); Hemoglobin 14.2 g/dl (12.0-16.0); Imm Gran Abs Auto 0.01 X10*3/uL (0.00-0.03); Imm Gran Pct Auto 0.2 % (0.0-0.4); Lymphocytes Absolute Auto 0.8 X10*3/uL (1.2-4.9); Mean Corpuscular HGB Conc 32.9 g/dl (31.0-35.0); Mean Corpuscular Volume 88.3 fL (80.0-98.0); Mean Platelet Volume 11.6 fL (9.4-12.3); Monocytes Absolute Auto 0.3 X10*3/uL (0.1-1.2); Monocytes Percent Auto 7.8 % (2-11); Neutrophils Absolute Auto 2.9 x10*3/uL (2.0-8.3); Neutrophils Percent Auto 70.6 % (45-73); Platelet Count 234 X10*3/uL (160-400); Red Blood Count 4.89 X10*6/uL (4.20-5.50); Red Cell Distribution Width 12.9 % (11.0-16.0); White Blood Count 4.1 X10*3/uL (4.8-10.8)
[2024-03-28 18:37] LABS: TSH reflex Free T4 2.19 uIU/mL (0.32-4.0)
[2024-03-31 13:48] LABS: Calcium, Ionized 5.4 mg/dL (4.7-5.5)
[2024-03-31 22:49] LABS: Prot Elec - Alpha1 0.3 g/dL (0.2-0.3); Prot Elec - Alpha2 0.7 g/dL (0.5-0.9); Prot Elec - Beta 1 0.5 g/dL (0.4-0.6); Prot Elec - Beta 2 0.3 g/dL (0.2-0.5); Prot Elec - Gamma 1.1 g/dL (0.8-1.7); Prot Elec - Total Protein 7.8 g/dL (6.1-8.1)
== END 2024-03-28 14:35 | disposition home or self-care (01) ==
LOC: HO.CHCLDS 14:34
PROVIDERS: Visit Provider Internal Medicine
DX: E83.52 Hypercalcemia (principal); R79.89 Other specified abnormal findings of blood chemistry
CPT/HCPCS: 36415; 82330; 84165; 84443; 85025

== ENCOUNTER 2024-04-14 18:38 | Outpatient (REF) | payer OTHER, SELFPAY ==
--- OUTSIDE RECORDS SUMMARY | 2024-04-14 19:31 | XMS_ITS | Encounter Summary ---
Author Organization [employer] Address [address] [facility] [address] [place] [address] Care Team Providers Care Management Associate Name Role Phone Simba Gibson MD Primary Care Provide r Reason for Visit * Reason Comments Gynecologic Exam Encounter Details Date Type Department Care Team (Latest Contact Info) Description 04/14/2024 9:30 AM EST Procedure Visit [facility] MED[facility]INE [address], [place] [phone] Sindy Manriquez CNM [address], [place] [phone] Cervical cancer screening (Primary Dx); Menopausal and postmenopausal disorder; Stress incontinence Social History Tobacco Use Types Packs/Day Years [...] Access Q2 Not on file 03/11/2024 Comments No Sex and Gender Information Value Date Recorded Sex Assigned at Female 12/12/2021 10:21 AM EDT Legal Sex Female 10:21 AM EDT Gender Identity Female 12/12/2021 10:21 AM EDT Sexual Orientation Straight 12/12/2021 10 :21 AM EDT documented as of this encounter Last Filed Vital Signs Vital Sign Reading Time Taken Comments Blood Pressure 123/77 04/14/2024 9:31 AM EST Pulse 78 04/14/2024 9:31 AM EST Temperature 36.2 ??C (97.2 ??F) 04/14/2024 9:31 AM ES T Respiratory Rate 16 04/14/2024 9:31 AM EST Oxygen Saturation 99% 04/14/2024 9:31 AM EST Inhaled Oxygen Concentration - - Weight 66.2 kg (146 lb) 04/14/2024 9:31 AM EST Height 162.6 cm (5' 4 ) 04/14/2024 9:31 AM EST Body Mass Index 25.06 04/14/2024 9:31 AM EST documented in this encounter Progress Notes * Sindy Manriquez CNM - 04/14/2024 9:30 AM EST Subjective Patient ID: Erna Prince is a 53 y.o. 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 Would like to trial low dose vaginal estrogen for occasional discomfort after sex and stress urinary incontinence. Using lubricant during sex which is usually helpful, but sometimes has burning/discomfort after sex. Tried Replens, but had vaginal burning with use. Tried pelvic floor PT for stress urinary incontinence, found it awkward. Not interested in surgical treatment for incontinence. 1 snf AMAB partner, no safety concerns. Previously on Veozah for vasomotor symptoms, discontinued due to LFT elevation. Notes some mild vasomotor symptoms which are manageable. Has been going to cryotherapy a few times a week for this and joint pain, and finds it helpful. Insomnia has been worse, though. Hep C neg, Hep B immune. Abdominal ultrasound showed CLARKE, possible gallbladder polyp or sludge. Last AST was 35 in 02/2024, decreased from max of 42. ALT, total and direct bilirubin normal. Has appt with liver specialist later this month. Last pap 2020 NIL/HPV neg. Would like to do pap today. No prior abnormal. History of recurrent left breast cancer, s/p reconstruction. Followed by [facility], last visit 01/2024. On letrozole (5 years in 09/2024). History of PE. History of bilateral salpinog-oophorectomy. Chest MRI 08/29/2023 showed: 1. No MRI evidence of malignancy in the chest wall. 2. Intact RIGHT chest wall silicone implant. 3. Expected appearance of PAWAN flap reconstruction on the LEFT. Recent BMD with osteopenia, FRAX low. No personal fracture, no parental hip fracture. Very active, lifts weights regularly. Review of Systems Genitourinary: Negative for dyspareunia, dysuria, frequency, genital sores, hematuria, menstrual problem, pelvic pain, urgency, vaginal bleeding, vaginal discharge and vaginal pain. No abnormal pap, no abnormal bleeding. Objective BP 123/77 (BP Location: Left arm, Patient Position: Sitting, BP Cuff Size: Adult) Pulse 78 Temp97.2 ??F (36.2 ??C) (Temporal) Resp 16 Ht 5' 4 (1.626 m) Wt 146 lb (66.2 kg) SpO2 99% BMI 25.06 kg/m?? Physical Exam Constitutional: Appearance: Normal appearance. Chest: Comments: CBE deferred, done recently by oncologist Genitourinary: General: Normal vulva. Labia: Right: No rash, tenderness, lesion or injury. Left: No rash, tenderness, lesion or injury. Vagina: Normal. No signs of injury and foreign body. No vaginal discharge, erythema, tenderness, bleeding or lesions. Cervix: No cervical motion tenderness, discharge, friability, lesion, erythema, cervical bleeding or eversion. Uterus: Normal. Not enlarged and not tender. Adnexa: Right adnexa normal and left adnexa normal. Right: No mass, tenderness or fullness. Left: No mass, tenderness or fullness. Comments: Ovaries non palpable bilaterally. Fair tone with Kegels, mild cystocele noted. Neurological: Mental Status: She is alert. Psychiatric: Mood and Affect: Mood normal. Behavior: Behavior normal. Assessment/Plan Diagnoses and all orders for this visit: Cervical cancer screening - Pap Smear Cotest today. Will contact with results and plan. Repeat 5 y if normal/HPV neg. Report bleeding. BMD 1-2 years (ordered by oncology) Menopausal and postmenopausal disorder Reviewed recent research shows no increased rates of breast cancer recurrence with low dose vaginalestrogen, but best to use as last resort. She has discussed with oncologist as well, and would liketo try. Using shared decision making, we agree to estradiol 1-2x/ week (one finger tip or less, around 0.25g). Apply to introitus and just inside vagina. Consider checking estradiol level if using reg ularly. Try acupuncture for insomnia. Stress incontinence Does Kegels. Not interested in surgical treatment or PT. Will observe for now. Could consider urogyn consult for pessary if symptoms become more bothersome. Other orders - estradiol (Estrace) 0.1 MG/GM vaginal cream; 0.25g once or twice weekly vaginally, as needed documented in this encounter Plan of Treatment Scheduled Orders Name Type Priority Associated Diagnoses Orde r Schedule Pap Smear Pathology and Cytology Routine Cervical cancer screening Ordered: 04/14/2024 documented as of this encounter Visit Diagnoses Diagnosis Cervical cancer screening- Primary Screening for malignant neoplasm of the cervix Menopausal and postmenopausal disorder Unspecified menopausal and postmenopausal disorder Stress incontinence Female stress incontinence documented in this encounter Additional Health Concerns Assessment Noted Time PHQ-9 Depression Total Score: 2 03/11/19 25 3:08 PM EST documented as of this encounter Care Teams Management Associate Relationship Specialty Start Date End Date Simba Gibson MD [address] [place] [id number] PCP - General Internal Medicine 02/20/18 documented as of this encounter
--- OUTSIDE RECORDS SUMMARY | 2024-04-14 19:31 | XMS_ITS | Encounter Summary ---
Author Organization [employer] Address [address] [place] [address] [address] [place] [address] Care Team Providers Care Toy Department Manager Name Role Phone Simba Gibson MD Primary Care Provide r Reason for Referral * Consultation (Routine) - Authorized Specialty Diagnoses / Procedures Referred By Contac t Referred To Contact Gastroenterology Diagnoses CLARKE (nonalcoholic steatohepatitis) Simba Gibson MD [address] [place] [phone] Phone: tel: fax: Baltazaryin Yogi [address] [facility], [address] [place], [place] [address] Phone: tel: fax: Referral ID Status Reason Start Date Expiration Date Visits Requested Visits Authorized [id number] Authorized Specialty Services Required 03/27/2024 03/27/2025 1 1 Encounter Details Date Type Department Care Team (Late st Contact Info) Description 03/27/2024 Orders Only [facility] MEDICINE [address] [place] [address] [phone] Simba Gibson MD [address] [place] [phone] CLARKE (nonalcoholic steatohepatitis) (Primary Dx) Social [...] documented as of this encounter Care Teams Toy Department Manager Relationship Specialty Start Date End Date Simba Gibson MD [address] [place] [address] PCP - General Internal Medicine 02/20/18 documented as of this encounter
--- OUTSIDE RECORDS SUMMARY | 2024-04-14 19:31 | XMS_ITS | Encounter Summary ---
Author Organization [employer] Address [address] [facility] [address] [place] [address] Care Team Providers Care Lemon Grower Name Role Phone Simba Gibson MD Primary Care Provide r Encounter Details Date Type Department Care Team (Latest Contact Info) Description 04/01/2024 Travel Social History Tobacco Use Types Packs/Day [...] documented as of this encounter Care Teams Lemon Grower Relationship Specialty Start Date End Date Simba Gibson MD [address] [place] [address] PCP - General Internal Medicine 02/20/18 documented as of this encounter
--- OUTSIDE RECORDS SUMMARY | 2024-04-14 19:31 | XMS_ITS | Encounter Summary ---
Author Organization [employer] Address [address] [facility] [address] [place] [address] Care Team Providers Care Second Cook And Baker Name Role Phone Simba Gibson MD Primary Care Provide r Encounter Details Date Type Department Care Team (Late st Contact Info) Description 03/23/2022 Orders Only [facility] MEDICINE [address] [place], [place] [phone] Hattie Frey MD [address] [place] [phone] Social History Tobacco Use Types Packs/Day Years [...] on filedocumented in this encounter Care Teams Second Cook And Baker Relationship Specialty Start Date End Date Simba Gibson MD [address] [place], [place] [phone] PCP - General Internal Medicine 02/20/18 documented as of this encounter
--- OUTSIDE RECORDS SUMMARY | 2024-04-14 19:31 | XMS_ITS | Clinical Summary ---
Author Organization [employer] Address [address] [place] [address] Care Team Providers Care Color Finisher Name Role Phone Simba Gibson MD Primary [...] morning. 527 g 3 08/22/19 23 Active letrozole (Femara) 2.5 MG chemo tablet Take 2.5 mg by mouth Once per day. 05/17/19 24 Active phentermine 15 MG capsule Take 1 capsule (15 mg) by mouth before breakfast. 30 capsule 03/20/19 25 025 Active topiramate (Topamax) 50 MG tablet Take 1 tablet (50 mg) by mouth Once per day. 30 tablet 3 03/20/19 25 025 Active estradiol (Estrace) 0.1 MG/GM vaginal cream 0.25g once or twice weekly vaginally, as needed 45 g 1 04/15/19 25 Active docusate sodium (Colace) 100 MG capsuleIndicatio ns:Constipation, unspecified constipation type Take 1 capsule (100 mg) by mouth 2 times daily. 180 capsule 1 08/22/19 23 025 Discontinued Fezolinetant (Veozah) 45 MG tablet Take 1 tablet by mouth Once per day. 30 tablet 2 08/28/19 24 025 Discontinued(Si de effects) phentermine 15 MG capsule Take 1 capsule (15 mg) by mouth before breakfast. 30 capsule 01/31/20 24 025 Discontinued(Re order (will not trigger notification to Pharmacy)) topiramate (Topamax) 50 MG tablet Take 1 tablet (50 mg) by mouth Once per day. 30 tablet 3 01/31/20 24 025 Discontinued(Re order (will not trigger notification to Pharmacy)) Active Problems Problem Noted Date Diagnosed Date Menopausal and postmenopausal disorder Elevated AST (SGOT) 03/11/2024 Assessment & Plan [...] 6 weeks Capsular contracture of breast implant 3 Health care maintenance 08/21/2022 Overview (08/21/2022): Routine [...] 3, ER positive 7 out of 8, VT positive 7 out of 8 HER-2/kamron 3+ Diagnosed Mar 2019. Prior left breast cancer diagnosed July 2006. Care managed by [facility]. Last breast MRI Normal July 2022 BMD: mild osteopenia noted on DXA most likely r/t chemo therapy, up to date. Treating with vit D. Recommended calcium, not taking. Colonoscopy: Colonoscopy at age 47; 3 polyps biopsied Positive for tubular adenoma Repeat 3 [place] [facility] [place], found 1 polyp Repeat 3 years; 2025 Lung cancer: never smoker Eye: Last visit within 2 years. Wears contacts. No concerns Dental: 07/2022 Assessment & Plan (03/11/2024 11:20 AM EST): Pap Smear: 2020 NILM, HPV neg. Repeat 5 years 2025. Mammogram: Hx of recurrent Left infiltrating ductal carcinoma, grade 3, ER positive 7 out of 8, VT positive 7 out of 8 HER-2/kamron 3+ Diagnosed Mar 2019. Prior left breast cancer diagnosed July 2006. Care managed by [facility]. Last breast MRI Normal July 2022 BMD: mild osteopenia noted on DXA most likely r/t chemo therapy, up to date. Treating with vit D. Recommended calcium, not taking. Colonoscopy: Colonoscopy at age 47; 3 polyps biopsied Positive for tubular adenoma Repeat 3 years [facility] [place], found 1 polyp Repeat 3 years; 2025 Follow-up examination after gynecological surger y 08/21/2022 Overview (08/21/2022): S/p BSO on 12/05/[address] 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 Prior left breast cancer T1c N0, lower inner quadrant, ER positive, VT positive diagnosed July 2006. Current regimen Letrozole 2.5 mg daily, started 09/2021 Zoledronic acid 4 doses, 1 dose every 6 months. Doses: 01/12/20, 08/11/20, 02/09/21, 07/21/21 s/p left mastectomy, sentinel node with reconstruction/silicone implant Assessment & Plan (08/21/2022 7:10 PM EDT): Care managed by [facility]. Last breast MRI Normal July 2022 F/u with specialist History of pulmonary embolism 08/21/2022 Overview (08/21/2022): Completed Eliquis therapy 08/11/22 Assessment & Plan (08/21/2022 7:12 PM EDT): F/u PRN Recurrent infiltrating ductal carcinoma of left breast 08/21/2022 Overview (03/11/2024): Hx of recurrent Left infiltrating ductal carcinoma, grade 3, ER positive 7 out of 8, VT positive 7 out of 8 HER-2/kamron 3+ Diagnosed Mar 2019. Prior left breast cancer T1c N0, lower inner quadrant, ER positive, VT positive diagnosed July 2006. Current regimen Letrozole [...] cycles with trastuzumab for 1 year between 4425-8724 Left niple sparing mastectomy with reconstruction and silicone implant in 2006 Assessment & Plan (03/11/2024 12:06 PM EST): Care managed by [facility]. Last breast MRI Normal July [...] (08/21/2022 7:10 PM EDT): Care managed by [facility]. Last breast MRI Normal July 2022 F/u with specialist Tubular adenoma of colon 08/21/2022 Overview (08/21/2022): Colonoscopy at age 47; 3 polyps biopsied Positive for tubular adenoma Repeat 3 years [facility], found 1 polyp Repeat 3 [...] Encounters Date Type Department Care Team Description 04/14/2024 9:30 AM EST Procedure Visit [facility] [place] [address] Sindy Manriquez CNM Cervical cancer screening (Primary Dx); Menopausal and postmenopausal disorder; Stress incontinence 04/14/2024 Travel 04/07/2024 Travel 04/02/2024 Telephone [facility] [address] [place] [address] Fina Alexander RN Results 04/01/2024 Travel 03/28/2024 Orders Only [facility] [address] [place] [address] Simba Gibson MD 03/27/2024 Orders Only [facility] [address] [facility] [place] [address] Simba Gibson MD CLARKE (nonalcoholic steatohepatitis) (Primary Dx) 03/20/2024 Orders Only [facility] [address] [facility] [place] [address] Hattie Frey MD 03/14/2024 Orders Only [facility] [place] [address] Simba Gibson MD 03/11/2024 3:00 PM EST Office Visit [facility] [place] [address] Simba Gibson MD Routine physical examination (Primary Dx); Recurrent infiltrating ductal carcinoma of left breast (CMS/HCC); Low vitamin D level; Elevated AST (SGOT); Bilateral pleural effusion; Tubular adenoma of colon; Health care maintenance; Serum calcium elevated; Elevated TSH 03/11/2024 Travel 03/04/2024 Travel 02/29/[address] [place] [address] Simba Gibson MD Chart Prep 02/28/2024 Patient Outreach [facility] [place] [place] [address] Simba Gibson MD Pre-visit Planning (Pre-visit planning - LVM ) 02/01/[address] [address] Sindy Manriquez CNM 01/31/2024 Orders Only [facility] [address] [facility] [place] [address] Hattie Frey MD 01/29/2024 Refill [facility] [address] [place] [address] Simba Gibson MD from Last 3 Months Immunizations Name Administration Dates Next Due Influenza Injectable Quadriv alant Preservative Free IIV4 MDCK 11/09/2022,11/03/2021,11/04/2020,10/27 Influenza injectable quadriv alent IIV4 with preservative 10/23/2018,10/24/2017,10/21/2014 Influenza, IIV3, injectable 12/17/2006 Influenza, seasonal, injecta ble, preservative free 11/02/2023 Pfizer Covid-19 Vaccine 12+ 11/13/2023 Pneumococcal Conjugate PCV 13 09/02/2019 Pneumococcal Polysaccharide PPSV23 11/24/2019 Tdap 05/31/2021,06/08/2011 Family History Medical History Relation Name Comments Stroke Father Matias Prince DCIS (ductal carcinoma in situ) Sister Relation Name Status Comments Father Matias Prince Sister Social History Tobacco Use Types Packs/Day Years [...] Mass Index 25.06 04/14/2024 9:31 AM EST Plan of Treatment Health Maintenance Due Date Last Done Comments CT Colonography 1972 FIT DNA/Cologuard 1972 FIT 1972 FOBT 1972 Sigmoidoscopy 1972 Hepatitis A Vaccines (1 of 2 - Risk 2-dose series) 10/10/1991 Pap Smear 1993 Cervical Cancer Screening 2002 HPV/Cotest 2002 Zoster Vaccines (1 of 2) 2022 Pneumococcal Vaccine: 50+ Years (3 of 3 - PCV20 or PCV21) 11/23/2024 11/24/2019, 09/02/2019 Alcohol/Substance Use Screening 03/11/2025 03/11/2024 Depression Screening 03/11/2025 03/11/2024, 03/11/19 25 SDOH Screening 03/11/2025 03/11/2024 Family Planning (PISQ) 04/14/2025 04/14/2024 Tobacco Screening 04/14/2025 04/14/2024 Colonoscopy 05/02/2025 05/02/2022, 06/07/2018 Colorectal Cancer Screening [...] patient's age to complete this topic Hepatitis B Vaccines Discontinued IPV Vaccines Aged Out No longer eligi [...] Procedure Name Priority Date/Time Associated Diagnosis Comments CBC WITH AUTO DIFFERENTIAL Routine 03/28/2024 2:36 PM EST Serum calcium elevated PROTEIN, TOTAL AND PROTEIN ELECTROPHORESIS Routine 03/28/2024 2:35 PM EST TSH W/REFLEX TO FT4 Routine 03/28/2024 2 :35 PM EST Elevated TSH PROTEIN ELECTROPHORESIS AND KAPPA/LAMBDA LIGHT CHAINS, SERUM Routine 03/28/2024 2:35 PM EST Serum calcium elevated CALCIUM, IONIZED Routine 03/28/2024 2:35 PM EST Serum calcium elevated XR CHEST 2 VIEWS Routine 03/14/2024 5:28 [...] BILIRUBIN, TOTAL Routine 01/31/2024 9:00 AM EST terminologist use of drug BILIRUBIN, DIRECT Routine 01/31/2024 9:0 0 AM EST skilled nursing use of drug AST Routine 01/31/2024 9:00 AM EST skilled nursing use of drug ALT Routine 01/31/2024 9:00 AM EST terminologist use of drug HIV ANTIBODY/ANTIGEN ([place] DPH) Routine 08/29/2022 8:38 AM EDT HM COLONOSCOPY Routine 05/02/2022 9:06 AM EDT from Last 3 Months or Most Recently Relevant to Health Maintenance Results * (ABNORMAL) CBC auto differential (03/28/2024 2:36 PM EST) White Blood Count 4.1(L) 4.8 - 10.8 X10*3/uL [facility] Red Blood Count 4.89 4.20 - 5.50 X10*6/uL [facility] Hemoglobin 14.2 12.0 - 16.0 g/dl [facility] Hematocrit 43.2 37.0 - 47.0 % [facility] Mean Corpuscular Volume 88.3 80.0 - 98.0 fL [facility] Mean Corpuscular Hemoglobin 29.0 27.0 - 33.0 pg [facility] Mean Corpuscular HGB Conc 32.9 31.0 - 35.0 g/dl [facility] Red Cell Distribution Width 12.9 11.0 - 16.0 % [facility] Platelet Count 234 160 - 400 X10*3/uL [facility] Mean Platelet Volume 11.6 9.4 - 12.3 fL [facility] Neutrophils Percent Auto 70.6 45 - 73 % [facility] Imm Gran Pct Auto 0.2 0.0 - 0.4 % [facility] Lymphocytes Percent Auto 19.0(L) 20 - 40 % [facility] Monocytes Percent Auto 7.8 2 - 11 % [facility] Eosinophils Percent Auto 1.2 0 - 4 % [facility] Basophils Percent Auto 1.2 0 - 2 % [facility] NRBC Pct Auto 0.0 0.0 - 0.2 /100WBC [facility] Neutrophils Absolute Auto 2.9 2.0 - 8.3 x10*3/uL [facility] Imm Gran Abs Auto 0.01 0.00 - 0.03 X10*3/uL [facility] Lymphocytes Absolute Auto 0.8(L) 1.2 - 4.9 X10*3/uL [facility] Monocytes Absolute Auto 0.3 0.1 - 1.2 X10*3/uL [facility] Eosinophils Absolute Auto 0.1 0.0 - 0.4 X10*3/uL [facility] Basophils Absolute Auto 0.1 0.0 - 0.2 X10*3/uL [facility] NRBC Abs Auto 0.000 0.0 - 0.012 X10*3/uL [facility] Blood Venous blood specimen / Unknown 03/28/2024 2:36 PM EST 03/28/2024 5:49 PM EST Simba Barragan MD LAB BLOOD ORDERABLES Final Result Performing Organization Address City/[facility] Co de Phone Number [facility] [address] [place] [phone] * TSH with Reflex to Free T4 (03/28/2024 2:35 PM EST) Only the most recent of2 resultswithin the time period is included. Pathologist [facility] TSH reflex Free T4 2.19 0.32 - 4.0 uIU/mL [facility] Blood Venous blood specimen / Unknown 03/28/2024 2:35 PM EST 03/28/2024 5:49 PM EST Simba Barragan MD LAB BLOOD ORDERABLES Final Result Performing Organization Address [facility] de Phone Number [facility] [address] [place] [phone] * (ABNORMAL) Protein, Total and Protein??Electrophoresis (03/28/2024 2:35 PM EST) Prot Elec - Total Protein 7.8 6.1 - 8.1 g/dL [facility] Prot Elec - Albumin 5.0(A) 3.8 - 4.8 g/dL [facility] Prot Elec - Alpha1 0.3 0.2 - 0.3 g/dL [facility] Prot Elec - Alpha2 0.7 0.5 - 0.9 g/dL [facility] Prot Elec - Beta 1 0.5 0.4 - 0.6 g/dL [facility] Prot Elec - Beta 2 0.3 0.2 - 0.5 g/dL [facility] Prot Elec - Gamma 1.1 0.8 - 1.7 g/dL [facility] PES - Abn Protein Band 1 TNP [facility] PES-Abn Protein Band 2 TNP [facility] PES-Abn Protein Band 3 TNP [facility] Prot Elec - Interpretation SEE NOTE [facility] Comment:Evaluation reveals a non-specific pattern. It isfrequently seen in otherwise healthy individuals, butmay also reflect dehydration. In the absence ofdehydration the pattern is probably without clinicalsignificance.THIS TEST WAS PERFORMED AT:[employer] [address] [phone] FLORES MD 03/28/2024 2:35 PM EST 03/28/2024 5:49 PM EST Simba Barragan MD LAB BLOOD ORDERABLES Final Result Performing Organization Address City/[facility]/ZIP Co de Phone Number [facility] [address] [place] [phone] * Calcium, Ionized (03/28/2024 2:35 PM EST) Calcium, Ionized 5.4 4.7 - 5.5 mg/dL [facility] Comment:THIS TEST WAS PERFOR MED AT:[employer] [address] [phone] FLORES MD Blood Venous blood specimen / Unknown 03/28/2024 2:35 PM EST 03/28/2024 5:49 PM EST Simba Barragan MD LAB BLOOD ORDERABLES Final Result Performing Organization Address [facility]/ZIP Co de Phone Number [facility] [address] [place] [phone] * XR Chest 2 Views (03/14/2024 5:28 PM EST) Anatomical Region Laterality Modality Chest Radiographic Shaina ging 03/14/2024 5:28 PM EST Narrative 03/14/2024 5:30 PM EST ? [facility] ?[address] ?[place] [address] ?XRay Report ? Signed ? Patient: Begolli,Erna ?MR#: [id number] ?? 140 ? : 1970 ?Acct:[id number] ? Age/Sex: 53 / F ?ADM Date: 03/14/24 ? Loc: HO.US ? Attending Dr: Simba Estrada MD ? Ordering Physician: Simba Estrada MD ?? Date of Service: 03/14/24 ?? Procedure(s): XR chest 2V ?? Accession Number(s): [id number] ? cc: Simba Estrada MD ? CLINICAL [...] DD/ 1728 ? TD/TT: 03/14/24 1728 ? Industrial Services Worker: ? Procedure Note Layo Joyner - 03/14/[address] [address] XRay Report Signed Patient: SureshBritney#: [id number] 140 : 1970Acct:[id number] Age/Sex: 53 / FADM Date: 03/14/24 Loc: HO.US Attending Dr: Simba Estrada MD Ordering Physician: Simba Estrada MD Date of Service: 03/14/24 Procedure(s): XR chest 2V Accession Number(s): [id number] cc: Simba Estrada MD CLINICAL HISTORY: previusly [...] signed by Chucho Hodge MD in OV> 03/14/241728 DD/ 27 TD/TT: 03/14/248 Industrial Services Worker: us Simba Barragan MD IMG XR PROCEDURES Fin al Result * US Abdomen Complete (03/14/2024 8:38 AM EST) Anatomical Region Laterality Modality Abdomen Ultrasound 03/14/2024 8:38 AM EST Narrative 03/14/2024 8:40 AM EST ? [facility] ?[address] ?[place] [address] ? Ultrasound Report ? Signed ? Patient: Begolli,Erna ?MR#: [id number] ?? 140 ? : 1970 ?Acct:[id number] ? Age/Sex: 53 / F ?ADM Date: /31/25 ? Loc: HO.US ? Attending Dr: Simba Estrada MD ? Ordering Physician: Simba Estrada MD ?? Date of Service: 03/14/24 ?? Procedure(s): US abdomen complete ?? Accession Number(s): [id number] ? cc: Simba Estrada MD ? CLINICAL [...] signed by Petros Terrell MD in OV> ?03/14/24 0840 ? DD/ 7 ? TD/TT: 03/14/24837 ? Industrial Services Worker: ? Procedure Note Donfelipajeffrubinater, Image - 03/14/2024 [place] [address] Ultrasound Report Signed Patient: Britney Prince#: [id number] 140 : 1970Acct:[id number] Age/Sex: 53 / FADM Date: 03/14/24 Loc: HO.US Attending Dr: Simba Estrada MD Ordering Physician: Simba Estrada MD Date of Service: 03/14/24 Procedure(s): US abdomen complete Accession Number(s): [id number] cc: Simba Estrada MD CLINICAL HISTORY: elevated [...] in OV> 03/14/24839 DD/ 7 TD/TT: 03/14/24837 Industrial Services Worker: Simba Barragan MD IMG US PROCEDURES Fin al Result * Hepatitis C Antibody with Reflex to HCV, RNA, Quantitative, Real-Time PCR (03/14/2024 8:11 AM EST) Hepatitis C Antibody Nonreactive Nonreactive [facility] Comment:Antibodies to HCV no t detected; does not exclude early acuteHCV infection. Blood Venous blood specimen / Unknown 03/14/2024 8:11 AM EST 03/14/2024 8:11 AM EST Simba Barragan MD LAB BLOOD ORDERABLES Final Result [facility] [address] [place] [phone] * Hepatitis B surface antigen, EIA (03/14/2024 8:11 AM EST) Hepatitis B Surface Ag Negative Negative [facility] Blood Venous blood specimen / Unknown 03/14/2024 8:11 AM EST 03/14/2024 8:11 AM EST Simba Barragan MD LAB BLOOD ORDERABLES Final Result Performing Organization Address City/[facility]/ZIP Co de Phone Number [facility] [address] [place] [phone] * Hepatitis B Core Antibody, Total (03/14/2024 8:11 AM EST) Hepatitis B Core Antibody Nonreactive Nonreactive [facility] Blood Venous blood specimen / Unknown 03/14/2024 8:11 AM EST 03/14/2024 8:11 AM EST Simba Barragan MD LAB BLOOD ORDERABLES Final Result Performing Organization Address [facility] Co de Phone Number [facility] [address] [place] [phone] * Hepatitis B Surface Antibody, Qualitative (03/14/2024 8:11 AM EST) ~Hepatitis B Surface Antibody REACTIVE Nonreactive [facility] Comment:REACTIVE: > 11.99 mI U/mL Blood Venous blood specimen / Unknown 03/14/2024 8:11 AM EST 03/14/2024 8:11 AM EST Simba Barragan MD LAB BLOOD ORDERABLES Final Result Performing Organization Address City/[facility] Co de Phone Number [facility] [address] [place] [phone] * T4, Free (03/14/2024 8:11 AM EST) Free T4 (Free Thyroxine) 1.09 0.71 - 1.85 ng/dL [facility] 03/14/2024 8:11 AM EST 03/14/2024 8:11 AM EST Simba Barragan MD LAB BLOOD ORDERABLES Final Result [facility] [address] [place] [phone] [phone] * Hepatic Function Panel (03/14/2024 8:11 AM EST) Bilirubin, Direct 0.1 0.0 - 0.5 mg/dL [facility] Blood Venous blood specimen / Unknown 03/14/2024 8:11 AM EST 03/14/2024 8:11 AM EST us Simba Barragan MD LAB BLOOD ORDERABLES Final Result Performing Organization Address City/[facility]/ZIP Co de Phone Number [facility] [address] [place] [phone] * (ABNORMAL) Lipid Panel, Standard (03/14/2024 8:11 AM EST) Triglycerides 67 <150 mg/dL [facility] Comment:Desirable Triglyceri de: less than 150 mg/dLBorderline High Triglyceride 150-199 mg/dLHigh Triglyceride: 200-499 mg/dLVery High Triglyceride: greater than or equal to 5OO mg/dL Cholesterol 252(H) <200 mg/dL [facility] Comment:Desirable Cholestero l: less than 200 mg/dLBorderline High Cholesterol: 200-239 mg/dLHigh Cholesterol: greater than 239 mg/dL LDL Cholesterol Calculated 158(H) <100 mg/dL [facility] Comment:Desirable LDL: less than 100 mg/dLNear Optimal/Above Optimal LDL: 110- 129 mg/dLBorderline High LDL: 130-159 mg/dLHigh LDL: 160-189 mg/dLVery High LDL: greater than or equal to 190 mg/dL HDL Cholesterol 81 >40 mg/dL [facility] Comment:Desirable HDL: great er than 40 mg/dL Note: This HDL assay may give artificially low results in patients with liver disease. Blood Venous blood specimen / Unknown 03/14/2024 8:11 AM EST 03/14/2024 8:11 AM EST Simba Barragan MD LAB BLOOD ORDERABLES Final Result [facility] [address], [place] [phone] * (ABNORMAL) Comprehensive Metabolic Panel (03/14/2024 8:11 AM EST) Sodium 142 135 - 145 mmol/L [facility] Potassium 3.9 3.3 - 5.1 mmol/L [facility] Chloride 106 96 - 108 mmol/L [facility] Carbon Dioxide 27 22 - 29 mmol/L [facility] Anion Gap 13 12 - 20 [facility] Urea Nitrogen (BUN) 22(H) 9 - 16 mg/dL [facility] Creatinine, Serum 0.76 0.5 - 1.4 mg/dL [facility] Estimated Glomerular Filt Rate >60 [facility] Comment:Chronic Kidney Disea se: Estimated GFR < 60 mL/min/1.52e4Fbtmxl Kidney Disease: Estimated GFR < 15 mL/min/1.73m2 Glucose 84 60 - 115 mg/dL [facility] Calcium 10.6(H) 8.4 - 10.2 mg/dL [facility] Bilirubin, Total 0.5 0.0 - 1.0 mg/dL [facility] Aspartate Amino Transferase 35(H) 5 - 31 U/L [facility] Alanine Aminotransferase 30 0 - 31 U/L [facility] Total Protein 8.9(H) 6.5 - 8.0 g/dL [facility] Albumin Level 5.2(H) 3.5 - 5.0 g/dL [facility] Alkaline Phosphatase 67 39 - 117 U/L [facility] Blood Venous blood specimen / Unknown 03/14/2024 8:11 AM EST 03/14/2024 8:11 AM EST Simba Barragan MD LAB BLOOD ORDERABLES Final Result [facility] [address] [place] [phone] * (ABNORMAL) AST (02/12/2024 10:43 AM EST) Only the most recent of2 resultswithin the time period is included. Aspartate Amino Transferase 37(H) 5 - 31 U/L [facility] Blood Venous blood specimen / Unknown 02/12/2024 10:43 AM EST 02/12/2024 2:57 PM EST [facility] LAB BLOOD ORDERABLES Alisson l Result Performing Organization Address [facility] Co de Phone Number [facility] [address] [place] [phone] * ALT (01/31/2024 9:00 AM EST) Alanine Aminotransferase 31 0 - 31 U/L [facility] Blood Venous blood specimen / Unknown 01/31/2024 9:00 AM EST 01/31/2024 2:28 PM EST [facility] BLOOD ORDERABLES Alisson l Result Performing Organization Address [facility] Co de Phone Number [facility] [address] [place] [phone] * Bilirubin, Direct (01/31/2024 9:00 AM EST) Bilirubin, Direct 0.1 0.0 - 0.5 mg/dL [facility] Blood Venous blood specimen / Unknown 01/31/2024 9:00 AM EST 01/31/2024 2:28 PM EST [facility] LAB BLOOD ORDERABLES Alisson l Result Performing Organization Address [facility]/ZIP Co de Phone Number [facility] [address] [place] [address] [phone] * Bilirubin, Total (01/31/2024 9:00 AM EST) Bilirubin, Total 0.4 0.0 - 1.0 mg/dL [facility] Blood Venous blood specimen / Unknown 01/31/2024 9:00 AM EST 01/31/2024 2:28 PM EST us Sindy Manriquez CN LAB BLOOD ORDERABLES Alisson l Result Performing Organization Address [facility]/ZIP Co de Phone Number [facility] [address] [place] [phone] * HIV Ab/Ag ([facility]) (08/29/2022 8:38 AM EDT) HIV AB/AG Nonreactive Nonreactive [facility] Comment:HIV-1 p24 Ag and/or HIV-1/HIV-2 Ab not detected.A test result that is nonreactive does not exclude thepossibility of exposure to or infection with HIV-1 and/orHIV-2. Nonreactive results in this assay for individualswith prior exposure to HIV-1 and/or HIV-2 may be due toantigen and antibody levels that are below the limit ofdetection of this assay.The [employer] HIV Ag/Ab Combo assay result andsupplemental assay results should be interpreted inconjunction with the patient's clinical presentation,history and other laboratory results. If the results areinconsistent with clinical evidence, additional testing issuggested to confirm the result. 08/29/2022 8:38 AM EDT 08/29/2022 2:29 PM EDT us Brenda Dela Cruz [employer] LAB BLOOD ORDERABLES Final Result Performing Organization Address [facility]/ZIP Co de Phone Number [facility] [address] [place] [phone] * Hm Colonoscopy (05/02/2022 9:06 AM EDT) us Historical Provider HEALTH MAINTENANCE Final Result from Last 3 Months or Most Recently Relevant to Health Maintenance Insurance [facility] , [address] [place] [address] Care Teams Color Finisher Relationship Specialty Start Date End Date Simba Gibson MD [address] [place] [phone] PCP - General Internal Medicine 02/20/18
--- OUTSIDE RECORDS SUMMARY | 2024-04-14 19:31 | XMS_ITS | Encounter Summary ---
Author Organization [employer] Address [address] [facility] 7t [place] [address] Care Team Providers Care Color Paste Mixing Supervisor Name Role Phone Frankie Gibson MD Primary Care Provide r Reason for Referral * Consultation (Routine) - Closed Specialty Diagnoses / Procedures Referred By Cullen t Referred To Contact Midwifery Diagnoses Health care maintenance Frankie Gibson MD [address] [place] [address] Phone: tel: fax: Sindy Manriquez CNM [address] [place] [address] Phone: tel: fax: Referral ID Status Reason Start Date Expiration Date V isits Requested Visits Authorized [id number] Closed Consult and Treat 03/11/2024 03/11/2025 1 1 * Imaging (Routine) - Closed Specialty Diagnoses / Procedures Referred By Contac t Referred To Contact Radiology Diagnoses Elevated AST (SGOT) Procedures US Abdomen Complete Frankie Gibson MD [address] [place] [address] Phone: tel: fax: [facility] [address] [place] [address] Phone: tel: fax: Referral ID Status Reason Start Date Expiration Date Visits Re quested Visits Authorized [id number] Closed 03/11/2024 03/11/2025 1 1 Encounter Details Date Type Department Care Team (Late st Contact Info) Description 03/11/2024 3:00 PM EST Office Visit [facility] [address] [place] [address] Frankie Gibson MD [address] [place], [place] [phone] Routine physical examination (Primary Dx); Recurrent infiltrating [...] of left breast (CMS/HCC) Care managed by [facility]. Last breast MRI Normal July 2022 [...] 3, ER positive 7 out of 8, MS positive 7 out of 8 HER-2/kamron 3+ Diagnosed Mar 2019. Prior left breast cancer diagnosed July 2006. Care managed by [facility]. Last breast MRI Normal July 2022 BMD: mild osteopenia noted on DXA most likely r/t chemo therapy, up to date. Treating with vit D. Recommended calcium, not taking. Colonoscopy: Colonoscopy at age 47; 3 polyps biopsied Positive for tubular adenoma Repeat 3 [place] [facility], found 1 polyp Repeat 3 [...] Physical examination today within normal limits * Result Encounter Note - Frankie Barragan MD - 03/11/2024 3:00 PM EST Please contact patient to let her know that her SPEP showed: a non-specific pattern. frequently seen in otherwise healthy individuals, but may also reflect dehydration. In the absence ofdehydration the pattern is probably without clinical significance * Addendum Note - Frankie Barragan MD [...] of left breast (CMS/HCC) Care managed by [facility]. Last breast MRI Normal July 2022 [...] 3, ER positive 7 out of 8, MS positive 7 out of 8 HER-2/kamron 3+ Diagnosed Mar 2019. Prior left breast cancer diagnosed July 2006. Care managed by [facility]. Last breast MRI Normal July 2022 BMD: mild osteopenia noted on DXA most likely r/t chemo therapy, up to date. Treating with vit D. Recommended calcium, not taking. Colonoscopy: Colonoscopy at age 47; 3 polyps biopsied Positive for tubular adenoma Repeat 3 years [facility], found 1 polyp Repeat 3 years; 2025 documented in this encounter Plan of Treatment Pending Results Name Type Priority Associated Diagnoses Date /Time Protein Electrophoresis and [place]/Lambda Light Chains Lab Routine Serum calcium elevated 03/28/2024 2:35 PM EST Scheduled Referrals Name Type Priority Associated Diagnoses Orde r Schedule Referral to Gynecology (Sindy) Outpatient Referral Routine Health care maintenance Expected: 03/11/2024 (Approximate), Expires: 03/11/2025 documented as of this encounter Procedures Procedure Name Priority Date/Time Associated Diagnosis Comments CBC WITH AUTO DIFFERENTIAL Routine 03/28/2024 2:36 PM EST Serum calcium elevated TSH W/REFLEX TO FT4 Routine 03/28/2024 2 [...] (SGOT) documented in this encounter Results * (ABNORMAL) CBC auto differential (03/28/2024 2:36 PM EST) White Blood Count 4.1(L) 4.8 - 10.8 X10*3/uL [facility] Red Blood Count 4.89 4.20 - 5.50 X10*6/uL [facility] Hemoglobin 14.2 12.0 - 16.0 g/dl [facility] Hematocrit 43.2 37.0 - 47.0 % [facility] Mean Corpuscular Volume 88.3 80.0 - 98.0 fL [facility] Mean Corpuscular Hemoglobin 29.0 27.0 - 33.0 pg [facility] Mean Corpuscular HGB Conc 32.9 31.0 - 35.0 g/dl [facility] Red Cell Distribution Width 12.9 11.0 - 16.0 % [facility] Platelet Count 234 160 - 400 X10*3/uL [facility] Mean Platelet Volume 11.6 9.4 - 12.3 fL [facility] Neutrophils Percent Auto 70.6 45 - 73 % [facility] Imm Gran Pct Auto 0.2 0.0 - 0.4 % [facility] Lymphocytes Percent Auto 19.0(L) 20 - 40 % [facility] Monocytes Percent Auto 7.8 2 - 11 % [facility] Eosinophils Percent Auto 1.2 0 - 4 % [facility] Basophils Percent Auto 1.2 0 - 2 % [facility] NRBC Pct Auto 0.0 0.0 - 0.2 /100WBC [facility] Neutrophils Absolute Auto 2.9 2.0 - 8.3 x10*3/uL [facility] Imm Gran Abs Auto 0.01 0.00 - 0.03 X10*3/uL [facility] Lymphocytes Absolute Auto 0.8(L) 1.2 - 4.9 X10*3/uL [facility] Monocytes Absolute Auto 0.3 0.1 - 1.2 X10*3/uL [facility] Eosinophils Absolute Auto 0.1 0.0 - 0.4 X10*3/uL [facility] Basophils Absolute Auto 0.1 0.0 - 0.2 X10*3/uL [facility] NRBC Abs Auto 0.000 0.0 - 0.012 X10*3/uL [facility] Blood Venous blood specimen / Unknown 03/28/2024 2:36 PM EST 03/28/2024 5:49 PM EST us Frankie Barragan MD LAB BLOOD ORDERABLES Final Result [facility] [address] [place] [phone] * TSH with Reflex to Free T4 (03/28/2024 2:35 PM EST) TSH reflex Free T4 2.19 0.32 - 4.0 uIU/mL [facility] Blood Venous blood specimen / Unknown 03/28/2024 2:35 PM EST 03/28/2024 5:49 PM EST Frankie Barragan MD LAB BLOOD ORDERABLES Final Result Performing Organization Address [facility]/ZIP Co de Phone Number [facility] [address] [place] [phone] [phone] * Calcium, Ionized (03/28/2024 2:35 PM EST) Pathologist [facility] Calcium, Ionized 5.4 4.7 - 5.5 mg/dL [facility] Comment:THIS TEST WAS PERFOR MED AT:[employer] [address] [phone] FLORES MD Blood Venous blood specimen / Unknown 03/28/2024 2:35 PM EST 03/28/2024 5:49 PM EST Frankie Barragan MD LAB BLOOD ORDERABLES Final Result Performing Organization Address [facility]/ZIP Co de Phone Number [facility] [address] [place] [phone] [phone] * XR Chest 2 Views (03/14/2024 5:28 PM EST) Anatomical Region Laterality Modality Chest Radiographic Shaina ging 03/14/2024 5:28 PM EST Narrative 03/14/2024 5:30 PM EST ? [facility] ?[address] ?[place] [address] ?XRay Report ? Signed ? Patient: Begolli,Erna ?MR#: [id number] ?? 140 ? : 1970 ?Acct:[id number] ? Age/Sex: 53 / F ?ADM Date: 01/31/25 ? Loc: HO.US ? Attending Dr: Frankie Estrada MD ? Ordering Physician: Frankie Estrada MD ?? Date of Service: 03/14/24 ?? Procedure(s): XR chest 2V ?? Accession Number(s): [id number] ? cc: Frankie Estrada MD ? CLINICAL [...] in OV> ? 03/14/24 1729 ? DD/ ? TD/TT: 03/14/248 ? Cone Operator: ? Procedure Note Ar, Layo - 03/14/[address] [address] XRay Report Signed Patient: Britney Prince#: [id number] 140 : 1970Acct:[id number] Age/Sex: 53 / FADM Date: 03/14/24 Loc: HO. Attending Dr: Frankie Estrada MD Ordering Physician: Frankie Estrada MD Date of Service: 03/14/24 Procedure(s): XR chest 2V Accession Number(s): [id number] cc: Frankie Estrada MD CLINICAL HISTORY: previusly [...] MD in OV> 03/14/241728 DD/ 27 TD/TT: 03/14/241727 Cone Operator: us Frankie Barragan MD IMG XR PROCEDURES Fin al Result * US Abdomen Complete (03/14/2024 8:38 AM EST) Anatomical Region Laterality Modality Abdomen Ultrasound 03/14/2024 8:38 AM EST Narrative 03/14/2024 8:40 AM EST ? [facility] ?[address] ?[place] [address] ? Ultrasound Report ? Signed ? Patient: Begolli,Erna ?MR#: [id number] ?? 140 ? : 1970 ?Acct:[id number] ? Age/Sex: 53 / F ?ADM Date: /31/25 ? Loc: HO.US ? Attending Dr: Frankie Estrada MD ? Ordering Physician: Frankie Estrada MD ?? Date of Service: 03/14/24 ?? Procedure(s): US abdomen complete ?? Accession Number(s): [id number] ? cc: Frankie Estrada MD ? CLINICAL [...] ? DD/ 7 ? TD/TT: 03/14/24837 ? Cone Operator: ? Procedure Note aLyo Joyner - 03/14/2024 [place] [address] Ultrasound Report Signed Patient: Britney Prince#: [id number] 140 : 1970Acct:[id number] Age/Sex: 53 / FADM Date: 03/14/24 Loc: HO.US Attending Dr: Frankie Estrada MD Ordering Physician: Frankie Estrada MD Date of Service: 03/14/24 Procedure(s): US abdomen complete Accession Number(s): [id number] cc: Frankie Estrada MD CLINICAL HISTORY: elevated [...] in OV> 03/14/24839 DD/ 7 TD/TT: 03/14/24837 Cone Operator: Frankie Barragan MD IMG US PROCEDURES Fin al Result * (ABNORMAL) TSH with Reflex to Free T4 (03/14/2024 8:11 AM EST) TSH reflex Free T4 4.24(H) 0.32 - 4.0 uIU/mL [facility] Blood Venous blood specimen / Unknown 03/14/2024 8:11 AM EST 03/14/2024 8:11 AM EST Frankie Barragan MD LAB BLOOD ORDERABLES Final Result [facility] [address] [place] [phone] * (ABNORMAL) Comprehensive Metabolic Panel (03/14/2024 8:11 AM EST) Sodium 142 135 - 145 mmol/L [facility] Potassium 3.9 3.3 - 5.1 mmol/L [facility] Chloride 106 96 - 108 mmol/L [facility] Carbon Dioxide 27 22 - 29 mmol/L [facility] Anion Gap 13 12 - 20 [facility] Urea Nitrogen (BUN) 22(H) 9 - 16 mg/dL [facility] Creatinine, Serum 0.76 0.5 - 1.4 mg/dL [facility] Estimated Glomerular Filt Rate >60 [facility] Comment:Chronic Kidney Disea se: Estimated GFR < 60 mL/min/1.37o0Sbkgzu Kidney Disease: Estimated GFR < 15 mL/min/1.73m2 Glucose 84 60 - 115 mg/dL [facility] Calcium 10.6(H) 8.4 - 10.2 mg/dL [facility] Bilirubin, Total 0.5 0.0 - 1.0 mg/dL [facility] Aspartate Amino Transferase 35(H) 5 - 31 U/L [facility] Alanine Aminotransferase 30 0 - 31 U/L [facility] Total Protein 8.9(H) 6.5 - 8.0 g/dL [facility] Albumin Level 5.2(H) 3.5 - 5.0 g/dL [facility] Alkaline Phosphatase 67 39 - 117 U/L [facility] Blood Venous blood specimen / Unknown 03/14/2024 8:11 AM EST 03/14/2024 8:11 AM EST us Frankie Barragan MD LAB BLOOD ORDERABLES Final Result [facility] [address] [place] [phone] [phone] * (ABNORMAL) Lipid Panel, Standard (03/14/2024 8:11 AM EST) Triglycerides 67 <150 mg/dL [facility] Comment:Desirable Triglyceri de: less than 150 mg/dLBorderline High Triglyceride 150-199 mg/dLHigh Triglyceride: 200-499 mg/dLVery High Triglyceride: greater than or equal to 5OO mg/dL Cholesterol 252(H) <200 mg/dL [facility] Comment:Desirable Cholestero l: less than 200 mg/dLBorderline High Cholesterol: 200-239 mg/dLHigh Cholesterol: greater than 239 mg/dL LDL Cholesterol Calculated 158(H) <100 mg/dL [facility] Comment:Desirable LDL: less than 100 mg/dLNear Optimal/Above Optimal LDL: 110- 129 mg/dLBorderline High LDL: 130-159 mg/dLHigh LDL: 160-189 mg/dLVery High LDL: greater than or equal to 190 mg/dL HDL Cholesterol 81 >40 mg/dL [facility] Comment:Desirable HDL: great er than 40 mg/dL Note: This HDL assay may give artificially low results in patients with liver disease. Blood Venous blood specimen / Unknown 03/14/2024 8:11 AM EST 03/14/2024 8:11 AM EST Frankie Barragan MD LAB BLOOD ORDERABLES Final Result Performing Organization Address City/[facility]/ZIP Co de Phone Number [facility] [address] [place] [phone] * Hepatic Function Panel (03/14/2024 8:11 AM EST) Pathologist [facility] Bilirubin, Direct 0.1 0.0 - 0.5 mg/dL [facility] Blood Venous blood specimen / Unknown 03/14/2024 8:11 AM EST 03/14/2024 8:11 AM EST Frankie Barragan MD LAB BLOOD ORDERABLES Final Result Performing Organization Address City/[facility] Co de Phone Number [facility] [address] [place] [phone] * Hepatitis B Core Antibody, Total (03/14/2024 8:11 AM EST) Pathologist [facility] Hepatitis B Core Antibody Nonreactive Nonreactive [facility] Blood Venous blood specimen / Unknown 03/14/2024 8:11 AM EST 03/14/2024 8:11 AM EST Frankie Barragan MD LAB BLOOD ORDERABLES Final Result Performing Organization Address City/[facility] Co de Phone Number [facility] [address] [place] [phone] * Hepatitis B Surface Antibody, Qualitative (03/14/2024 8:11 AM EST) ~Hepatitis B Surface Antibody REACTIVE Nonreactive [facility] Comment:REACTIVE: > 11.99 mI U/mL Blood Venous blood specimen / Unknown 03/14/2024 8:11 AM EST 03/14/2024 8:11 AM EST us Frankie Barragan MD LAB BLOOD ORDERABLES Final Result Performing Organization Address [facility] Co de Phone Number [facility] [address] [place] [phone] * Hepatitis B surface antigen, EIA (03/14/2024 8:11 AM EST) Hepatitis B Surface Ag Negative Negative [facility] Blood Venous blood specimen / Unknown 03/14/2024 8:11 AM EST 03/14/2024 8:11 AM EST us Frankie Barragan MD LAB BLOOD ORDERABLES Final Result Performing Organization Address [facility] Co de Phone Number [facility] [address] [place] [phone] * Hepatitis C Antibody with Reflex to HCV, RNA, Quantitative, Real-Time PCR (03/14/2024 8:11 AM EST) Pathologist [facility] Hepatitis C Antibody Nonreactive Nonreactive [facility] Comment:Antibodies to HCV no t detected; does not exclude early acuteHCV infection. Blood Venous blood specimen / Unknown 03/14/2024 8:11 AM EST 03/14/2024 8:11 AM EST us Frankie Barragan MD LAB BLOOD ORDERABLES Final Result Performing Organization Address [facility] Co de Phone Number [facility] [address] [place] [phone] documented in this encounter Visit Diagnoses [...] documented as of this encounter Care Teams Color Paste Mixing Supervisor Relationship Specialty Start Date End Date Frankie Gibson MD [address] [place] [address] PCP - General Internal Medicine 02/20/18 documented as of this encounter
--- OUTSIDE RECORDS SUMMARY | 2024-04-14 19:31 | XMS_ITS | Encounter Summary ---
Author Organization [employer] Address [address] [facility] [address] [place] [address] Care Team Providers Care American Indian Studies Professor Name Role Phone Simba Gibson MD Primary Care Provide r Encounter Details Date Type Department Care Team ([facility] st Contact Info) Description 12/26/2022 Orders Only [facility] [address] [place], [place] [phone] Nico Ag MD [address] [place] [address] Muscle spasm (Primary Dx) Social History Tobacco [...] documented as of this encounter Care Teams American Indian Studies Professor Relationship Specialty Start Date End Date Simba Gibson MD [address] [place] [address] PCP - General Internal Medicine 02/20/18 documented as of this encounter
--- OUTSIDE RECORDS SUMMARY | 2024-04-14 19:31 | XMS_ITS | Encounter Summary ---
Author Organization [employer] Address [address] [facility] [address] 7[address] [place] [address] Care Team Providers Care Physician Extender Name Role Phone Simba Gibson MD Primary Care Provide r Encounter Details Date Type Department Care Team (Late st Contact Info) Description 06/08/2023 Orders Only [facility] [address] [place] [address] ProviderGerardo MD Social History Tobacco Use Types [...] documented as of this encounter Care Teams Physician Extender Relationship Specialty Start Date End Date Simba Gibson MD [address] [place] [phone] PCP - General Internal Medicine 02/20/18 documented as of this encounter
--- OUTSIDE RECORDS SUMMARY | 2024-04-14 19:31 | XMS_ITS | Encounter Summary ---
Author Organization [employer] Address [address] [facility] [address] [place] [address] Care Team Providers Care Certified Nursing Attendant Name Role Phone Simba Gibson MD Primary Care Provide r Reason for Visit * Reason Onset Date Comments Results 04/02/2024 Encounter Details Date Type Department Care Team ([facility] st Contact Info) Description 04/02/2024 Telephone [facility] [address] [place] [address] Fina Alexander RN Results Social History Tobacco Use Types Packs/Day Years [...] encounter Miscellaneous Notes * Telephone Encounter - Fina Alexander RN - 04/02/2024 1:47 PM EST TC placed to pt to inform of SPEP testing below and the findings showing potential dehydration. Pt stated that PCP did contact her regarding these findings along with the results of the other blood work. Pt was in agreement of the findings and had no concerns at this time. ----- Message from Simba Barragan MD sent at 04/01/2024 4:37 PM EST ----- Please contact patient to let her know that her SPEP showed a non-specific pattern. frequently seen in otherwise healthy individuals, but may also reflect dehydration. In the absence ofdehydration the pattern is probably without clinical significance. documented in this encounter Plan of Treatment Not on file documented as of this encounter Visit Diagnoses Not on filedocumented in this encounter Additional Health Concerns Assessment Noted Time PHQ-9 Depression Total Score: 2 03/11/19 25 3:08 PM EST documented as of this encounter Care Teams Certified Nursing Attendant Relationship Specialty Start Date End Date Simba Gibosn MD [address] [place] [address] PCP - General Internal Medicine 02/20/18 documented as of this encounter
--- OUTSIDE RECORDS SUMMARY | 2024-04-14 19:31 | XMS_ITS | Encounter Summary ---
Author Organization [employer] Address [address] [facility] [address] [place] [address] Care Team Providers Care Card Placer Name Role Phone Simba Gisbon MD Primary Care Provide r Encounter Details Date Type Department Care Team ([facility] st Contact Info) Description 03/20/2024 Orders Only [facility] [address] [place], [place] [phone] Hattie Frey MD [address] [place] [address] Social History Tobacco Use Types Packs/Day Years [...] documented as of this encounter Care Teams Card Placer Relationship Specialty Start Date End Date Simba Gibson MD [address] [place] [address] PCP - General Internal Medicine 02/20/18 documented as of this encounter
--- OUTSIDE RECORDS SUMMARY | 2024-04-14 19:31 | XMS_ITS | Continuity of Care Document ---
Author Organization [facility] Address [address] [place] [address]- Care Team Providers Care Cook Ship Name Role Phone Sean GONZALEZ, Simba Wang Primary Care Physi [place] [facility] Encounter [facility] [place] ACCT R [id number] Date(s): 02/01/24 - 04/08/24 [facility] Care [address] [place] [id number] Discharge Disposition: A-D/C Home Attending Physician: Argenis Quintero MD Admitting Physician: Argenis Quintero MD Referring Physician: Simba Estrada MD Encounter Type: Disch Recurring OP Allergies, Adverse Reactions, Alerts Substance Criticality Severity [...] Refills, Maintenance, 09/12/21 9:00:00 AM EDT, Tablet, [facility], Partial fill upon [...] Malignant Neoplasm of Breast, Left, T1c No ER/DC positive, [id number] positive, 2006 02 Confirmed 08/31/06 Active PE (pulmonary thromboembolism) Confirmed Active Follow-up examination after gynecological surgery Confirmed Active 1s/p left mastectomy, sentinel node with reconstruction/silicone implant Vital Signs Most recent to oldest [Reference Range]: 1 Height 162 cm (02/07/24 1:39 PM) Weight 65.9 kg (02/07/24 1:39 PM) Oxygen Saturation [94-100 %] 100 % (02/07/24 1:39 PM) Pulse Rate [55-90 bpm] 81 bpm (02/07/24 1:39 PM) Body Mass Index [18.5-24.99 kg/m2] 25.11 kg/m2 *H* (02/07/24 1:39 PM) Blood Pressure [90-138/55-84 mm Hg] 105/ 75mm Hg (02/07/24 1:39 PM) Temperature [96.8-100.4 DegF] 98.5 DegF (02/07/24 1:39 PM) Mode of Delivery (Oxygen) Room air (02/07/24 1:39 PM) Blood pressure sites Arm, left (02/07/24 1:39 PM) Temperature Route Oral (02/07/24 1:39 PM) Dry Weight 65.9 kg (02/07/24 1:39 PM) Weight Obtained Via Standing scale (02/07/24 1:39 PM) Dry Weight Obtained Via Standing scale (02/07/24 1:39 PM) Social History Social History Type Response Smoking Status Never smoker entered on: 09/18/13 Sex Sex Representation Female (finding) Implantable Device List Procedure Provider Procedure Date Device Type Site Removal [id number] Emelyn Hall RN 09/06/20 Unknown Breast Right Device Identifier Serial Number Lot or Batch Number Manufacturing Date Expiration Date Distinct Identification Code MRI Safety Implantable Status Assigning Authority Unknown [id number] Unknown 12/12/24 Unknown Unknown Active Unknown Patient Care team information Care Team Personnel Name: Aliya Santizo Position: [facility] Onco RN Member Role: Primary Care Nurse Name: Marlys Sotelo MA Position: S Outreach Member Role: Lifetime Consulting Physician Name: Brenna Montanez Position: S RN Member Role: Primary Care Nurse Name: Sean GONZALEZ, Simba Wang Position: [facility] Outreach Member Role: PCP Address: [address] [place] [address]- [place] Telecom: Name: Ghislaine Gann RN Position: [facility] RN Member Role: Primary Care Nurse Name: Hermila Antoine RN Position: [facility] Onco RN Member Role: Primary Care Nurse Name: Jenelle Chambers RN Position: [facility] Onco RN Member Role: Primary Care Nurse Name: Diane Greco RN Position: [facility] RN Member Role: Primary Care Nurse Name: Delia South RN Position: [facility] AMB Nurse Member Role: Primary Care Nurse Name: Argenis Quintero MD Position: [facility] Physician - Oncology Med Service: Hematology & Oncology Member Role: Admitting Physician Address: [address] [place] [address] [place] [address]- [place] Telecom: Care Team Related Persons Name: WILFREDO WILKINSON Name: GLORY GIVENS Insurance Providers Guarantor name: EMIL WILKINSON Health Plan Information #: 1 Payer: [employer] [place] [employer] Member Number: [id number] Policy Number: NA Group Number: [id number] Health Plan Information #: 2 Payer: [employer] [place] [employer] Member Number: [id number] Policy Number: NA Group Number: NA
--- OUTSIDE RECORDS SUMMARY | 2024-04-14 19:31 | XMS_ITS | Encounter Summary ---
Author Organization [employer] Address [address] [place] [address] Care Team Providers Care Mimeographer Name Role Phone Simba Gibson MD Primary Care Provide r Encounter Details Date Type Department Care Team (Latest Contact Info) Description 04/14/2024 Travel Social History Tobacco Use Types Packs/Day [...] documented as of this encounter Care Teams Mimeographer Relationship Specialty Start Date End Date Simba Gibson MD [address] [place] [address] PCP - General Internal Medicine 02/20/18 documented as of this encounter
--- OUTSIDE RECORDS SUMMARY | 2024-04-14 19:31 | XMS_ITS | Encounter Summary ---
Author Organization [employer] Address [address] [place] [address] Care Team Providers Care Book Store Associate Name Role Phone Simba Gibson MD Primary Care Provide r Encounter Details Date Type Department Care Team (Latest Contact Info) Description 04/07/2024 Travel Social History Tobacco Use Types Packs/Day [...] documented as of this encounter Care Teams Book Store Associate Relationship Specialty Start Date End Date Simba Gibson MD [address] [place] [address] PCP - General Internal Medicine 02/20/18 documented as of this encounter
--- OUTSIDE RECORDS SUMMARY | 2024-04-14 19:31 | XMS_ITS | Encounter Summary ---
Author Organization [employer] Address [address] [place] [address] Care Team Providers Care Braider Operator Name Role Phone Simba Gibson MD Primary Care Provide r Encounter Details Date Type Department Care Team ([facility] st Contact Info) Description 03/28/2024 Orders Only [facility] [address] [place], [place] [id number] Simba Gibson MD [address] [place], [place] [phone] Social History Tobacco Use Types Packs/Day Years [...] Procedure Name Priority Date/Time Associated Diagnosis Comments PROTEIN, TOTAL AND PROTEIN ELECTROPHORESIS Routine 03/28/2024 2:35 PM EST documented in this encounter Results * (ABNORMAL) Protein, Total and Protein??Electrophoresis (03/28/2024 2:35 PM EST) Prot Elec - Total Protein 7.8 6.1 - 8.1 g/dL [facility] Prot Elec - Albumin 5.0(A) 3.8 - 4.8 g/dL [facility] Prot Elec - Alpha1 0.3 0.2 - 0.3 g/dL [facility] Prot Elec - Alpha2 0.7 0.5 - 0.9 g/dL [facility] Prot Elec - Beta 1 0.5 0.4 - 0.6 g/dL [facility] Prot Elec - Beta 2 0.3 0.2 - 0.5 g/dL [facility] Prot Elec - Gamma 1.1 0.8 - 1.7 g/dL [facility] PES - Abn Protein Band 1 [facility] PES-Abn Protein Band 2 [facility] PES-Abn Protein Band 3 [facility] Prot Elec - Interpretation SEE NOTE [facility] Comment:Evaluation reveals a non-specific pattern. It isfrequently seen in otherwise healthy individuals, butmay also reflect dehydration. In the absence ofdehydration the pattern is probably without clinicalsignificance.THIS TEST WAS PERFORMED AT:[employer] [place] [phone] FLORES MD 03/28/2024 2:35 PM EST 03/28/2024 5:49 PM EST us Simba Barragan MD LAB BLOOD ORDERABLES Final Result [facility] [address] [place] [address] [phone] documented in this encounter Visit Diagnoses Not on filedocumented in this encounter Additional Health Concerns Assessment Noted Time PHQ-9 Depression Total Score: 2 03/11/19 25 3:08 PM EST documented as of this encounter Care Teams Braider Operator Relationship Specialty Start Date End Date Simba Gibson MD [address] [place] [id number] PCP - General Internal Medicine 02/20/18 documented as of this encounter
[2024-04-18 09:59] LABS: HPV Genotype 16 Negative (Negative); HPV Genotype 18 Negative (Negative); HPV High Risk Negative (Negative)
== END 2024-04-14 18:39 | disposition home or self-care (01) ==
LOC: HO.HHCLNP 18:38
PROVIDERS: Visit Provider Advanced Practice Midwife
DX: Z12.4 Encounter for screening for malignant neoplasm of cervix (principal); Z11.51 Encounter for screening for human papillomavirus (HPV)
CPT/HCPCS: 87626; 88175

== ENCOUNTER 2024-09-03 08:32 | Outpatient (REF) | payer OTHER, SELFPAY ==
--- OUTSIDE RECORDS SUMMARY | 2024-08-30 23:59 | XMS_ITS | Continuity of Care Document ---
Author Organization [facility] Address [address] [place] [address]- Care Team Providers Care Tearoom Host/Hostess Name Role Phone Sean GONZALEZ, Simba Wang Primary Care [facility] [place] [facility] [place] 08/[place]/24 [facility] [address] [place] [id number] Attending Physician: AdmtrKristian Admitting Physician: AdmtrKristian Referring Physician: Admtr, Ar8 Encounter Type: Triage Allergies, Adverse Reactions, [...] Refills, Maintenance, 09/12/21 9:00:00 AM EDT, Tablet, [facility], Partial fill upon patient request [...] 10:45:00 AM EDT, Route to Pharmacy Electronically, [id number], Partial fill upon patient request if the prescription is for a schedule II opioid drug., 162, cm, 08/14/21 2:27:00 EDT, Height, 76.6, kg, 08/11/21 7:00:00 EDT, Dry Weight Start Date: 08/15/21 Status: Ordered Quantity: 30.0 Unit: capsule Repeat number: 1 letrozole 2.5 mg oral tablet 1 tablet, By Mouth, Daily, # 90 tablet, 3 Refills, Maintenance, 07/24/24 9:29:00 AM EDT, [id number], 162, cm, 05/05/24 14:45:00 EDT, Height, 65.9, kg, 02/07/24 13:39:00 EST, Dry Weight Start Date: 07/24/24 Status: Ordered Quantity: 90.0 Unit: tablet Repeat number: 1 Linzess 72 mcg oral capsule TAKE 1 [...] Quantity: 30.0 Unit: tablet Repeat number: 2 venlafaxine 37.5 mg oral tablet, extended release 1 tablet = 37.5 mg, By Mouth, Daily, May increase to 75mg after 1 week, # 40 tablet, 1 Refills, Maintenance, 08/04/24 10:37:00 AM EDT, ER Tablet, [id number], Partial fill upon patient request if the prescription is for a schedule II opioid drug., 162, cm, 08/04/24 10:12:00 EDT, Height, 67, kg, 08/04/24 10:12:00 EDT, Dry Weight Start Date: 08/04/24 Stop Date: 10/03/24 Status: Ordered Quantity: 40.0 Unit: tablet Repeat number: 2 Vitamin D2 [...] Malignant Neoplasm of Breast, Left, T1c No ER/NC positive, RYF2der positive, 2006 02 Confirmed 08/31/06 Active PE (pulmonary thromboembolism) Confirmed Active Follow-up examination after gynecological surgery Confirmed Active 1s/p left mastectomy, sentinel node with reconstruction/silicone implant Social History Social History Type Response Smoking Status Never smoker entered on: 09/18/13 Sex Sex Representation Female (finding) Implantable Device List Procedure Provider Procedure Date Device Type Site Removal [id number]-Xfhilomd Emelyn Hall RN 09/06/20 Unknown Breast Right Device Identifier Serial Number Lot or Batch Number Manufacturing Date Expiration Date Distinct Identification Code MRI Safety Implantable Status Assigning Authority Unknown [id number] Unknown 12/12/24 Unknown Unknown Active Unknown Patient Care team information Care Team Personnel Name: Aliya Santizo Position: [facility] Onco RN Member Role: Primary Care Nurse Name: Brenna Montanez Position: [facility] RN Member Role: Primary Care Nurse Name: Simba Estrada MD Position: [facility] Outreach Member Role: PCP Address: [address] [place] [address] Telecom: Name: Ghislaine Gann RN Position: [facility] RN Member Role: Primary Care Nurse Name: Hermila Antoine RN Position: [facility] Onco RN Member Role: Primary Care Nurse Name: Jenelle Chambers RN Position: [facility] Onco RN Member Role: Primary Care Nurse Name: Diane Greco RN Position: [facility] RN Member Role: Primary Care Nurse Name: Delia South RN Position: [facility] AIDE Nurse Member Role: Primary Care Nurse Care Team Related Persons Name: WILFREDO WILKINSON Name: GLORY GIVENS Insurance Providers Guarantor name: [facility] Information #: 1 [facility] Payer Identifier: NA Member Number: [id number] Group Number: [id number] Subscriber Identifier: [id number] Relationship to Subscriber: spouse Coverage Type: Commercial Managed Care - HMO Coverage Verification Date: LOYDA Telecom: LOYDA Address:
--- OUTSIDE RECORDS SUMMARY | 2024-09-02 23:59 | XMS_ITS | Continuity of Care Document ---
Author Organization [facility] Address [address] [place] [address]- Care Team Providers Care Cloth Shrinking Supervisor Name Role Phone Sean GONZALEZ, Simba Wang Primary Care Physi [facility] Encounter 09/01/24 - 09/02/[address] [id number] Attending Physician: Not on Staff, Attending MD Referring Physician: Not on Staff, Referring MD Encounter Type: [facility] Allergies, Adverse Reactions, Alerts Substance Criticality Severity [...] Refills, Maintenance, 09/12/21 9:00:00 AM EDT, Tablet, [facility], Partial fill upon patient [...] 10:45:00 AM EDT, Route to Pharmacy Electronically, [facility][id number], Partial fill upon patient request if the prescription is for a schedule II opioid drug., 162, cm, 08/14/21 2:27:00 EDT, Height, 76.6, kg, 08/11/21 7:00:00 EDT, Dry Weight Start Date: 08/15/21 Status: Ordered Quantity: 30.0 Unit: capsule Repeat number: 1 letrozole 2.5 mg oral tablet 1 tablet, By Mouth, Daily, # 90 tablet, 3 Refills, Maintenance, 07/24/24 9:29:00 AM EDT, [id number], 162, cm, 05/05/24 14:45:00 EDT, Height, 65.9, [...] Malignant Neoplasm of Breast, Left, T1c No ER/ND positive, [id number] positive, 2006 02 Confirmed 08/31/06 Active PE (pulmonary thromboembolism) Confirmed Active Follow-up examination after gynecological surgery Confirmed Active 1s/p left mastectomy, sentinel node with reconstruction/silicone implant Social History Social History Type Response Smoking Status Never smoker entered on: 09/18/13 Sex Sex Representation Female (finding) Implantable Device List Procedure Provider Procedure Date Device Type Site Removal Wnuq-T-Nckyltke Emelyn Hall RN 09/06/20 Unknown Breast Right Device Identifier Serial Number Lot or Batch Number Manufacturing Date Expiration Date Distinct Identification Code MRI Safety Implantable Status Assigning Authority Unknown [id number] Unknown 12/12/24 Unknown Unknown Active Unknown Patient Care team information Care Team Personnel Name: Aliya Santizo Position: [facility] Onco RN Member Role: Primary Care Nurse Name: Brenna Montanez Position: [facility] RN Member Role: Primary Care Nurse Name: Simba Estrada MD Position: [facility] Outreach Member Role: PCP Address: [address] [place] [address] Telecom: Name: Ghislaine Gann RN Position: [facility] RN Member Role: Primary Care Nurse Name: Hermila Antoine RN Position: [facility] Onco RN Member Role: Primary Care Nurse Name: Jenelle Chambers RN Position: [facility] Onco RN Member Role: Primary Care Nurse Name: Diane Greco RN Position: [facility] RN Member Role: Primary Care Nurse Name: Delia South RN Position: [facility] AMB Nurse Member Role: Primary Care Nurse Care Team Related Persons Name: WILFREDO WILKINSON Name: GLORY GIVENS Insurance Providers Guarantor name[facility] Information #: 1 [facility] Payer Identifier: NA Member Number: [id number] Group Number: [id number] Subscriber Identifier: [id number] Relationship to Subscriber: spouse Coverage Type: Commercial Managed Care - HMO Coverage Verification Date: NA Telecom: NA Address: NA
[2024-09-03 14:40] LABS: Alanine Aminotransferase 27 U/L (0-31); Albumin Level 4.7 g/dL (3.5-5.0); Alkaline Phosphatase 66 U/L (39-117); Anion Gap 11 (12-20); Aspartate Amino Transferase 32 U/L (5-31); Blood Urea Nitrogen 21 mg/dL (9-16); Calcium 9.7 mg/dL (8.4-10.2); Carbon Dioxide 30 mmol/L (22-29); Chloride 104 mmol/L (96-108); Cholesterol 218 mg/dL (<200); Estimated Glomerular Filt Rate > 60; HDL Cholesterol 72 mg/dL (>40); Potassium 4.9 mmol/L (3.3-5.1); Sodium 140 mmol/L (135-145); Total Protein 7.3 g/dL (6.5-8.0); Triglycerides 95 mg/dL (<150)
== END 2024-09-03 08:33 | disposition home or self-care (01) ==
LOC: HO.CHCLDS 08:32
PROVIDERS: Visit Provider Internal Medicine
DX: C50.912 Malignant neoplasm of unspecified site of left female breast (principal); R74.01 Elevation of levels of liver transaminase levels
CPT/HCPCS: 36415; 80053; 80061; 82306

== ENCOUNTER 2024-12-03 15:38 | Outpatient (AMB) | payer OTHER, SELFPAY ==
[2024-12-03 15:39] VITALS: BMI 23.9
--- NOTE | 2024-12-03 15:39 | A.OFFVIS_ITS ---
Vital Signs 12/03/24 15:39 Height 5 ft 4 in Weight 139 lb BMI 23.9 Intake Visit Reasons: hemorrhoids Intake Note: Patient presents for an assessment for hemorrhoids. Pt c/o; denies rectal bleeding, pain or constipation. Clerk Specialist Required: No Accompanied by: Self / Same As Patient Allergies No Known Allergies (No Known Allergies*) Allergy (Verified 12/03/24 15:43) Medication List - Last Reconciled 12/03/24 by Selvin Turner MD cholecalciferol (vitamin D3) 10 mcg PO DAILY letrozole 2.5 mg PO DAILY HPI HPI hemorrhoids: Details: [age] year old female here to schedule for her follow up colonoscopy. She had a colonoscopy in 2022. At that time, there was note of 1 cm polyp on a stalk that was removed with a snare from the colon. 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 I had recommended a follow up colonoscopy within 3 years because of the size of the polyp She denies significant GI complaints currently. She does state that she takes probiotics for regularity of bowel movements. She says she is in good health overall. She has a history of breast cancer at age of 35. 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[employer] Review of Systems Const Denies chills and Denies fever(s) Card Denies chest pain, Denies dyspnea and Denies dyspnea on exertion Resp Denies cough, Denies dyspnea and Denies dyspnea on exertion GI Denies hematochezia and Denies change in bowel habits Denies hematuria Musc Denies back pain and Denies limited range of motion Neuro Denies focal weakness and Denies convulsions Psych Denies depression and Denies mood swings Physical Exam Vital Signs: BMI result Body Mass Index 23.9 Const General: comfortable and no acute distress Orientation/consciousness: patient oriented x3 Neck Neck: Yes no lymphadenopathy Resp Auscultation: clear to auscultation bilaterally Cardio Rhythm: regular rhythm GI Palpation (GI): Soft to palpation, nontender and no guarding Neuro General: patient oriented x3 Assessment & Plan Assessment & Plan (1) History of adenomatous polyp of colon: Code(s): Z86.010 - Personal history of colon polyps Category: Medical Plan: She had a 1 cm polyp which was tubular a villous adenoma, removed from the right colon on her colonoscopy in 2022. I recommended a 3 year follow up. She understands the technique of colonoscopy. She was aware of the risks, benefits, and alternatives and had given consent. Coding Level of Care Code Est Pt Level 3 (19524) Diagnoses History of adenomatous polyp of colon Z86.010
--- OUTSIDE RECORDS SUMMARY | 2024-12-03 21:45 | XMS_ITS | Clinical Summary ---
Author Organization [employer] Address [address] [facility] [address] [place] [address] Care Team Providers Care Incident Response Lead Name Role Phone Simba Gibson MD Primary Care Provide r Allergies Active Allergy Reactions Criticality Noted Date Comments Morphine 08/21/2022 Other reaction(s): prolonged effect- stay sleeping long time , N/V Medications polyethylene glycol, PEG, 3350 (MiraLax) 17 GM/SCOOP powderIndication s:Constipation, unspecified constipation type Take 17 g by mouth in the morning. 527 g 3 08/22/19 23 Active letrozole (Femara) 2.5 MG chemo tablet Take 2.5 mg by mouth Once per day. 05/17/19 24 Active estradiol (Estrace) 0.1 MG/GM vaginal cream 0.25g once or twice weekly vaginally, as needed 45 g 1 04/15/19 25 Active omeprazole (PriLOSEC) [address] capsule Take 1 capsule (10 mg) by mouth before breakfast. Do not crush or chew. 60 capsule 2 05/15/19 25 Active gabapentin (Neurontin) 100 MG capsule 1 capsule at bedtime 30 capsule 1 06/17/19 25 Active SUMAtriptan (Imitrex) 50 MG tabletIndication s:Migraine with aura and without status migrainosus, not intractable Take 1 tablet (50 mg) by mouth 1 (one) time if needed for migraine for up to 1 dose. 9 tablet 3 08/20/19 25 Active venlafaxine XR (Effexor XR) 75 MG 24 hr capsule Take 1 capsule (75 mg) by mouth Once per day. 90 capsule 3 11/21/19 25 Active venlafaxine XR (Effexor XR) 75 MG 24 hr capsule Take 1 capsule (75 mg) by mouth Once per day. 90 capsule 3 09/04/19 25 025 Discontinued(Re order (will not trigger notification to Pharmacy)) Active Problems Problem Noted Date Diagnosed Date Menopausal and postmenopausal disorder 5 Elevated AST (SGOT) 03/11/2024 Assessment & Plan (08/19/2024 2:29 PM EDT): Repeat AST almost back to normal Previous elevation noted in January 2024 Hep B panel negative Abd US: Hepatic steatosis She has maintained her weight Assessment & Plan (03/11/2024 3:55 PM EST): Mild AST elevation noted in January 2024 Obtain Hep B panel, Abd US ( small cyst liver seen on Chest MRI as well ) Bilateral pleural effusion 03/11/2024 Assessment & Plan (08/19/2024 2:33 PM EDT): Incidental finding seen on Chest MRI done by Oncologist back in 08/2023. F/U Chest x-ray 03/11/2024 showed: IMPRESSION: 1. No acute findings. 2. Presumed unilateral right breast implant with potential intracapsular implant rupture with areas of irregularity along the implant. Correlation with the patient's surgical history of breast cancer screening is suggested. ( Pt being followed by Onc ) Assessment & Plan (03/11/2024 3:53 PM EST): [...] 3, ER positive 7 out of 8, NH positive 7 out of 8 HER-2/kamron 3+ Diagnosed Mar 2019. Prior left breast cancer diagnosed July 2006. Care managed by [facility]. Last breast MRI Normal July 2022 BMD: mild osteopenia noted on DXA most likely r/t chemo therapy, up to date. Treating with vit D. Recommended calcium, not taking. Colonoscopy: Colonoscopy at age 47; 3 polyps biopsied Positive for tubular adenoma Repeat 3 years [facility] May-June 2022, found 1 polyp Repeat years2025 Lung cancer: never smoker Eye: Last visit within 2 years. Wears contacts. No concerns Dental: 07/2022 Assessment & Plan (08/19/2024 2:31 PM EDT): Pap Smear: 2020 NILM, HPV neg. Repeat 04/14/2024 NILM Mammogram: Hx of recurrent Left infiltrating ductal carcinoma, grade 3, ER positive 7 out of 8, NH positive 7 out of 8 HER-2/kamron 3+ Diagnosed Mar 2019. Prior left breast cancer diagnosed July 2006. Care managed by [facility]. Last breast MRI Normal July 2022 BMD: mild osteopenia noted on DXA most likely r/t chemo therapy, up to date. Treating with vit D. Recommended calcium, not taking. Colonoscopy: Colonoscopy at age 47; 3 polyps biopsied Positive for tubular adenomaRepeat 3 years [facility] May-June 2022, found 1 polyp Repeat 3 years; 2025 Assessment & Plan (03/11/2024 11:20 AM EST): Pap Smear: 2020 NILM, HPV neg. Repeat 5 years 2025. Mammogram: Hx of recurrent Left infiltrating ductal carcinoma, grade 3, ER positive 7 out of 8, NH positive 7 out of 8 HER-2/kamron 3+ Diagnosed Mar 2019. Prior left breast cancer diagnosed July 2006. Care managed by [facility]. Last breast MRI Normal July 2022 BMD: mild osteopenia noted on DXA most likely r/t chemo therapy, up to date. Treating with vit D. Recommended calcium, not taking. Colonoscopy: Colonoscopy at age 47; 3 polyps biopsied Positive for tubular adenoma Repeat 3 years [facility] May-June 2022, found 1 polyp Repeat 3 years; 2025 Follow-up examination after gynecological surger y 08/21/2022 Overview (08/21/2022): S/p BSO on 12/05/[address] Nguyen Followed by [facility] for routine sports bookmaker visits Assessment & Plan (08/21/2022 3:09 PM EDT): F/u PRN Malignant neoplasm of breast 08/21/2022 Overview (08/21/2022): Hx of recurrent Left infiltrating ductal carcinoma, grade 3, ER positive 7 out of 8, NH positive 7 out of 8 HER-2/kamron 3+ Diagnosed Mar 2019. Prior left breast cancer T1c N0, lower inner quadrant, ER positive, NH positive diagnosed July 2006. Current regimen Letrozole 2.5 mg daily, started 09/2021 Zoledronic acid 4 doses, 1 dose every 6 months. Doses: 01/12/20, 08/11/20, 02/09/21, 07/21/21 s/p left mastectomy, sentinel node with reconstruction/silicone implant Assessment & Plan (08/21/2022 7:10 PM EDT): Care managed by [facility]. Last breast MRI Normal July 2022 F/u with specialist History of pulmonary embolism 08/21/2022 Overview (08/21/2022): Completed Eliquis therapy 08/11/22 Assessment & Plan (08/21/2022 7:12 PM EDT): F/u PRN Recurrent infiltrating ducta l carcinoma of left breast (CMS/HCC) 08/21/2022 Overview (03/11/2024): Hx of recurrent Left infiltrating ductal carcinoma, grade 3, ER positive 7 out of 8, NH positive 7 out of 8 HER-2/kamron 3+ Diagnosed Mar 2019. Prior left breast cancer T1c N0, lower inner quadrant, ER positive, NH positive diagnosed July 2006. Current regimen Letrozole [...] cycles with trastuzumab for 1 year between 4305-2043 Left niple sparing mastectomy with reconstruction and silicone implant in 2006 Assessment & Plan (08/19/2024 2:45 PM EDT): Care managed by [facility]. Last breast MRI Normal July [...] seen by Her new oncologist Argenis Quintero 08/05/2024. Her previous oncologist recently retired She recommended to: continue adjuvant endocrine therapy with a plan to continue this until at least September 2024 and potentially longer if tolerating. She was started on Venlafaxine 37.5 daily and was scheduled for a repeat MRI August, And follow up in 12 months with them. Patient questioning circulating DNA for breast cancer Assessment & Plan (03/11/2024 12:06 PM EST): Care managed by [facility]. Last breast MRI Normal July [...] (08/21/2022 7:10 PM EDT): Care managed by [facility]. Last breast MRI Normal July 2022 F/u with specialist Tubular adenoma of colon 08/21/2022 Overview (08/21/2022): Colonoscopy at age 47; 3 polyps biopsied Positive for tubular adenoma Repeat 3 years [facility] May-June 2022, found 1 polyp Repeat 3 [...] Encounters Date Type Department Care Team Description 11/20/2024 Orders Only [facility] [address] [place] [address] Name, MD Denzel 11/13/2024 11:30 AM EDT Clinical Support [facility] [address] [place] [address] Roberta Warner RN Encounter for immunization 11/13/2024 Travel 09/11/2024 Results Follow-Up [facility] [address] [place] [address] Simba Gibson MD Comprehensive Metabolic Panel, Lipid Panel, Standard, Vitamin D, 25-Hydroxy, Total, Immunoassay 09/03/2024 Orders Only [facility] [address] [place] [address] Hattie Frey MD from Last 3 Months Immunizations Immunization Administration Dates Next Due Influenza Injectable Quadriv alant Preservative Free IIV4 MDCK 11/09/2022,11/03/2021,11/04/2020,10/27 Influenza injectable quadriv alent IIV4 with preservative 10/23/2018,10/24/2017,10/21/2014 Influenza, IIV3, injectable 12/17/2006 Influenza, seasonal, injecta ble, preservative free 11/13/2024,11/02/2023 Pfizer Covid-19 Vaccine 12+ 11/13/2023 Pneumococcal Conjugate [...] Q2 Not on file 03/11/2024 Comments No Intention Date Recorded No desire to become (finding) 0 04/14/2024 Sex and Gender Information Value Date Recorded Sex Assigned at Female 12/12/2021 10:21 AM EDT Legal Sex Female 10:21 AM EDT Gender Identity Female 12/12/2021 10:21 AM EDT Sexual Orientation Straight 12/12/2021 10 :21 AM EDT Last Filed Vital Signs Vital Sign Reading Time Taken Comments Blood Pressure 126/84 08/19/2024 2:24 PM EDT Pulse 75 08/19/2024 2:24 PM EDT Temperature 36.3 C (97.4 F) 08/19/2024 2:24 PM EDT Respiratory Rate 20 08/19/2024 2:24 PM EDT Oxygen Saturation 98% 08/19/2024 2:24 PM EDT Inhaled Oxygen Concentration - - Weight 67.4 kg (148 lb 9.6 oz) 08/19/2024 2:24 P M EDT Height 162.6 cm (5' 4 ) 08/19/2024 2:24 PM EDT Body Mass Index 25.51 08/19/2024 2:24 PM EDT Plan of Treatment Health Maintenance Due Date Last Done Comments CT Colonography 1970 FIT DNA/Cologuard 1970 FIT 1970 FOBT 1970 Mammogram 1970 Sigmoidoscopy 1970 Hepatitis A Vaccines (1 of 2 - Risk 2-dose series) 10/10/1991 Zoster Vaccines (1 of 2) 2022 Pneumococcal Vaccine: 50+ Years (3 of 3 - PCV20 or PCV21) 11/23/2024 11/24/2019, 09/02/2019 Alcohol/Substance Use Screening 03/11/2025 03/11/2024 Depression Screening 03/11/2025 03/11/2024, 03/11/19 SDOH Screening 03/11/2025 03/11/2024 Family Planning (PISQ) 04/14/2025 04/14/2024 Tobacco Screening 04/14/2025 04/14/2024 Colonoscopy 05/02/2025 05/02/2022, 06/07/2018 Colorectal Cancer Screening 05/02/2025 Disability Screening 08/19/2025 08/19/2024 Cervical Cancer Screening 04/14/2029 HPV/Cotest 04/14/2029 04/14/2024 Pap Smear 04/14/2029 04/14/2024 DTaP/Tdap/Td Vaccines (3 - Td or Tdap) 06/01/2031 05/31/2021, 06/08/2011 RSV Patients and Patients Aged 60 years or older (1 - 1-dose 75+ series) 10/10/2047 HIV Screening Completed 08/29/2022 COVID-19 Vaccine Completed 11/13/2023, , 09/27/2020, Additional history exists Hepatitis C Screening Completed 03/14/2024, 022 Influenza Vaccine Completed 11/13/2024, , 11/09/2022, Additional history exists HIB Vaccines Aged Out No longer eligi ble based on patient's age to complete this topic HPV Vaccines Aged Out No longer eligi ble based on patient's age to complete this topic Hepatitis B Vaccines Discontinued IPV Vaccines Aged Out No longer eligi ble based on patient's age to complete this topic Meningococcal B Vaccine Aged Out No l onger eligible based on patient's age to complete [...] Procedure Name Priority Date/Time Associated Diagnosis Comments VITAMIN D,25-OH,TOTAL,IA Routine 09/03/2024 8:34 AM EDT Recurrent infiltrating ductal carcinoma of left breast (CMS/HCC) LIPID PANEL, STANDARD Routine 09/03/2024 8:34 AM EDT Recurrent infiltrating ductal carcinoma of left breast (CMS/HCC) COMPREHENSIVE METABOLIC PANEL Routine 09/03/2024 8:34 AM EDT Elevated AST (SGOT) HPV DNA, LOW/HIGH RISK Routine 04/14/2024 10:03 AM EST PAP SMEAR Routine 04/14/2024 10:03 AM EST Cervical cancer screening HEPATITIS C AB W/REFL TO HCV RNA, QN, PCR Routine 03/14/2024 8:11 AM EST Elevated AST (SGOT) HIV ANTIBODY/ANTIGEN ([place] [facility]) Routine 08/29/2022 8:38 AM EDT HM COLONOSCOPY Routine 05/02/2022 9:06 AM EDT from Last 3 Months or Most Recently Relevant to Health Maintenance Results * Vitamin D, 25-Hydroxy, Total, Immunoassay (09/03/2024 8:34 AM EDT) Vitamin D 25-OH Total 83.0 >30 ng/mL [facility] Comment: Health Based Reference Values*< 20 ng/mL Fdsyvmymo07-54 ng/mL Insufficient> 30 ng/mL Sufficient*Matt MOMIN. N Engl J Med. 2007;357:266-280There is no well-established upper level of normal vitamin Dlevels. Some laboratories use 50 ng/mL as an upper limit ofnormal. However, toxicity is patient-dependent and may occurat any level. Careful correlation with the patient'spresentation is necessary and, if there is concern forvitamin D toxicity, treatment should be consideredirrespective of the serum level.Care must be taken in interpreting Vitamin D results fromdifferent laboratories and methodologies. Published datademonstrated that results from patients undergoinghemodialysis may show a negative bias when tested withvarious automated 25-OH vitamin D assays when compared toLC-MS/MS.When testing samples from patients whose predominant form ofVitamin D is Vitamin D2, such as patients receiving VitaminD2 supplementation, results that are subtherapeutic shouldbe confirmed with another method such as LC-MS/MS. Blood Venous blood specimen / Unknown 09/03/2024 8:34 AM EDT 09/03/2024 2:13 PM EDT Simba Barragan MD LAB BLOOD ORDERABLES Final Result Performing Organization Address [facility]/ZIP Co de Phone Number [facility] [address] [place] [address] [phone] * (ABNORMAL) Lipid Panel, Standard (09/03/2024 8:34 AM EDT) Triglycerides 95 <150 mg/dL [facility] Comment:Desirable Triglyceri de: less than 150 mg/dLBorderline High Triglyceride 150-199 mg/dLHigh Triglyceride: 200-499 mg/dLVery High Triglyceride: greater than or equal to 5OO mg/dL Cholesterol 218(H) <200 mg/dL [facility] Comment:Desirable Cholestero l: less than 200 mg/dLBorderline High Cholesterol: 200-239 mg/dLHigh Cholesterol: greater than 239 mg/dL LDL Cholesterol Calculated 127(H) <100 mg/dL [facility] Comment:Desirable LDL: less than 100 mg/dLNear Optimal/Above Optimal LDL: 110- 129 mg/dLBorderline High LDL: 130-159 mg/dLHigh LDL: 160-189 mg/dLVery High LDL: greater than or equal to 190 mg/dL HDL Cholesterol 72 >40 mg/dL [facility] Comment:Desirable HDL: great er than 40 mg/dL Note: This HDL assay may give artificially low results in patients with liver disease. Blood Venous blood specimen / Unknown 09/03/2024 8:34 AM EDT 09/03/2024 2:13 PM EDT Simba Barragan MD LAB BLOOD ORDERABLES Final Result Performing Organization Address City/[facility]/ZIP Co de Phone Number [facility] [address] [place] [phone] * (ABNORMAL) Comprehensive Metabolic Panel (09/03/2024 8:34 AM EDT) Sodium 140 135 - 145 mmol/L [facility] Potassium 4.9 3.3 - 5.1 mmol/L [facility] Chloride 104 96 - 108 mmol/L [facility] Carbon Dioxide 30(H) 22 - 29 mmol/L [facility] Anion Gap 11(L) 12 - 20 [facility] Urea Nitrogen (BUN) 21(H) 9 - 16 mg/dL [facility] Creatinine, Serum 0.79 0.5 - 1.4 mg/dL [facility] Estimated Glomerular Filt Rate >60 [facility] Comment:Chronic Kidney Disea se: Estimated GFR < 60 mL/min/1.91c4Fsttvz Kidney Disease: Estimated GFR < 15 mL/min/1.73m2 Glucose 83 60 - 115 mg/dL [facility] Calcium 9.7 8.4 - 10.2 mg/dL [facility] Bilirubin, Total 0.5 0.0 - 1.0 mg/dL [facility] Aspartate Amino Transferase 32(H) 5 - 31 U/L [facility] Alanine Aminotransferase 27 0 - 31 U/L [facility] Total Protein 7.3 6.5 - 8.0 g/dL [facility] Albumin Level 4.7 3.5 - 5.0 g/dL [facility] Alkaline Phosphatase 66 39 - 117 U/L [facility] Blood Venous blood specimen / Unknown 09/03/2024 8:34 AM EDT 09/03/2024 2:13 PM EDT us Simba Barragan MD LAB BLOOD ORDERABLES Final Result [facility] [address] [place] [phone] * HPV DNA, Low/High Risk (04/14/2024 10:03 AM EST) HPV High Risk Negative Negative [facility] HPV Genotype 16 Negative Negative [facility] HPV Genotype 18 Negative Negative [facility] Comment:HPV testing performe d at [facility] (CLIA#[id number]), [address] [place] [phone].Testing for HPV was performed using the Nika MEÑO 6800system. The presence of HPV in the female genital tract isassociated with a number of diseases, including cervicalcarcinoma. The HPV DNA high risk pool tests for HPV 31, 33,35, 39, 45, 51, 52, 56, 58, 59, 66 and 68. The testing forHPV 16 and 18 genotypes has also been performed. A positiveresult indicates detection of nucleic acid sequences fromone or more subtypes, whereas a negative result indicatessuch sequences were not detected. 04/14/2024 10:0 3 AM EST 04/15/2024 10:03 AM EST Mauricio Galindo CNM LAB BLOOD ORDERABLES Alisson l Result [facility] [address] [place] [address] [phone] * Pap Smear (04/14/2024 10:03 AM EST) Swab Cervix uteri structure / Unknown 04/14/2024 10:03 AM EST 04/15/2024 9:45 AM EST Biju [facility] - 04/17/2024 7:17 AM EST ----- ------- Name: Erna Prince Age/Sex: 53/F : 1970 Unit#: [id number] Attend Dr: MAURICIO GALINDO CNM Re04/14/24 Status: DEP REF Location: [facility] Disch: ----- ------- SPEC : [id number] RECD: 04/15/24 STATUS: CATHIE GRAMAJO NUM: [id number] NESS: 04/14/24-1003 [facility] DR: MAURICIO GALINDO CNM ENTERED: 04/15/24 SP TYPE: Pap Smr OT DR: ORDERED: Pap Smear Interpretation Satisfactory for evaluation. Negative for intraepithelial lesion or malignancy. Atrophic. HPV High Risk: Negative HPV Genotyping 16: Negative HPV Genotyping 18: Negative Clinical Information LMP: Unknown date Previous PAP test: 2020, unknown Material Received Cervix ----- ------- Signed (signature on file) TOMASZ Wesley (ASCP) 04/17/24 0717 ----- ------- END OF REPORT Mauricio Galindo CNM LAB CYTOLOGY ORDERABLES F inal Result Performing Organization Address City/[facility] Co de Phone Number [facility] [address] [place] [address] [phone] * Hepatitis C Antibody with Reflex to HCV, RNA, Quantitative, Real-Time PCR (03/14/2024 8:11 AM EST) Hepatitis C Antibody Nonreactive Nonreactive [facility] Comment:Antibodies to HCV no t detected; does not exclude early acuteHCV infection. Blood Venous blood specimen / Unknown 03/14/2024 8:11 AM EST 03/14/2024 8:11 AM EST us Simba Barragan MD LAB BLOOD ORDERABLES Final Result Performing Organization Address [facility] de Phone Number [facility] [address] [place] [address] [phone] * HIV Ab/Ag ([facility]) (08/29/2022 8:38 AM EDT) HIV AB/AG Nonreactive Nonreactive [facility] Comment:HIV-1 p24 Ag and/or HIV-1/HIV-2 Ab not detected.A test result that is nonreactive does not exclude thepossibility of exposure to or infection with HIV-1 and/orHIV-2. Nonreactive results in this assay for individualswith prior exposure to HIV-1 and/or HIV-2 may be due toantigen and antibody levels that are below the limit ofdetection of this assay.The [employer] HIV Ag/Ab Combo assay result andsupplemental assay results should be interpreted inconjunction with the patient's clinical presentation,history and other laboratory results. If the results areinconsistent with clinical evidence, additional testing issuggested to confirm the result. 08/29/2022 8:38 AM EDT 08/29/2022 2:29 PM EDT us Brenda MENDOZAP LAB BLOOD ORDERABLES Final Result Performing Organization Address [facility]/ZIP Co de Phone Number [facility] [address] [place] [phone] * Hm Colonoscopy (05/02/2022 9:06 AM EDT) us Historical Provider HEALTH MAINTENANCE Final Result from Last 3 Months or Most Recently Relevant to Health Maintenance Insurance [facility] , [address] [place] [address] Care Teams Incident Response Lead Relationship Specialty Start Date End Date Simba Gibson MD [address] [place] [phone] PCP - General Internal Medicine 02/20/18
--- OUTSIDE RECORDS SUMMARY | 2024-12-03 21:46 | XMS_ITS | Encounter Summary ---
Author Organization [employer] Address [address] [facility] 7t [place] [address] Care Team Providers Care Administrative Support Assistant Name Role Phone Simba Gibson MD Primary Care Provide r Encounter Details Date Type Department Care Team ([facility] st Contact Info) Description 03/23/2022 Orders Only [facility] [address] [place] [address] Hattie Frey MD [address] [place] [address] Social History Tobacco Use Types Packs/Day Years [...] on filedocumented in this encounter Care Teams Administrative Support Assistant Relationship Specialty Start Date End Date Simba Gibson MD [address] [place] [address] PCP - General Internal Medicine 02/20/18 documented as of this encounter
--- OUTSIDE RECORDS SUMMARY | 2024-12-03 21:46 | XMS_ITS | Encounter Summary ---
Author Organization [employer] Address [address] [facility] [address]t [place] [address] Care Team Providers Care Alarm Mechanism Adjuster Name Role Phone Simba Gibson MD Primary Care Provide r Encounter Details Date Type Department Care Team ([facility] Contact Info) Description 05/14/2024 Orders Only [facility] [address] [place], [place] [phone] Nico Ag MD [address] [place] [address] Social History Tobacco Use Types Packs/Day Years [...] documented as of this encounter Care Teams Alarm Mechanism Adjuster Relationship Specialty Start Date End Date Simba Gibson MD [address] [place] [address] PCP - General Internal Medicine 02/20/18 documented as of this encounter
--- OUTSIDE RECORDS SUMMARY | 2024-12-03 21:46 | XMS_ITS | Encounter Summary ---
Author Organization [employer] Address [address] [facility] [address] [place] [address] Care Team Providers Care Literary Writer Name Role Phone Simba Gibson MD Primary Care Provide r Encounter Details Date Type Department Care Team ([facility] Contact Info) Description 12/26/2022 Orders Only [facility] [address] [place] [address] Nico Ag MD [address] [place] [address] Muscle spasm (Primary Dx) Social History Tobacco [...] documented as of this encounter Care Teams Literary Writer Relationship Specialty Start Date End Date Simba Gibson MD [address] [place] [phone] PCP - General Internal Medicine 02/20/18 documented as of this encounter
--- OUTSIDE RECORDS SUMMARY | 2024-12-03 21:46 | XMS_ITS | Encounter Summary ---
Author Organization [employer] Address [address] [facility] [address] [place] [address] Care Team Providers Care Data Integrity Consultant Name Role Phone Simba Gibson MD Primary Care Provide r Encounter Details Date Type Department Care Team ([facility] st Contact Info) Description 06/08/2023 Orders Only [facility] [address] [place] [address] Provider, MD Gerardo Social History Tobacco Use Types Packs/Day Years [...] us Historical Provider HEALTH MAINTENANCE Final Result * Hm Colonoscopy (06/07/2018 9:03 AM EDT) us Historical Provider HEALTH MAINTENANCE Final Result documented in this encounter Visit Diagnoses Not on filedocumented in this encounter Additional Health Concerns Assessment Noted Time PHQ-9 Depression Total Score: 1 08/22/19 23 2:15 PM EDT documented as of this encounter Care Teams Data Integrity Consultant Relationship Specialty Start Date End Date Simba Gibson MD [address] [place] [address] PCP - General Internal Medicine 02/20/18 documented as of this encounter
== END 2024-12-03 15:55 | disposition home or self-care (01) ==
LOC: HO.HGS 15:39
PROVIDERS: PCP Internal Medicine; Visit Provider Surgery
DX: Z86.0100 Personal history of colon polyps, unspecified (principal)
CPT/HCPCS: 99213